=== PATIENT | female | born 1965 | race Caucasian/White ===

== ENCOUNTER → 2016-09-29 | Day surgery (SDC) | payer OTHER ==
[2016-09-21 14:06] VITALS: BMI 28.0
[~2016-09-29] VITALS: Ht 167.6 cm; Wt 79.5 kg
[~2016-09-29] MED LIST: BUSP-8 PO; CLON1TAB3 PO; DICL50TA3 PO; DPKSR/500 PO; LIDOCAINE HCL 2% 2 ML VIAL (20MG/ML) ONE; META1TAB22 PO; OLAN1TAB9 PO; OXYC-59 PO; PROPOFOL IV EMULSION 10 MG/ML 20 ML VIAL IV ONE; SODIUM CHLORIDE 0.9% 500ML 500 ML IV ONE; TRAZ100T29 PO; VENL75CA PO; [UNRECOGNIZED DRUG - CODE] TD
[2016-09-29 14:59] VITALS: Ht 167.6 cm; Wt 79.5 kg
--- NOTE | 2016-09-29 16:35 | Endo History and Physical ---
History & Physical Date of Service: Sep 29, 2016. Chief Complaint: DIARRHEA, RECTAL BLEEDING Referring Physician: NO DOCTOR AT THIS TIME History of Present Illness 51 yo CF who presents for colonoscopy secondary to diarrhea and rectal bleeding. Past Surgical History Hx Cardiac Surgery: No Hx Internal Defibrillator: No Hx Pacemaker: No Hx Abdominal Surgery: Yes (FALLOPIAN TUBES REMOVAL) Hx of Implantable Prosthesis: No Hx Post-Op Nausea and Vomiting: No Hx Cancer Surgery: No Hx Thoracic Surgery: No Hx Orthopedic: Yes (LUMBAR FUSION) Hx Urinary Tract Surgery: No Family History IBD Social History Smoking Status: Current Every Day Smoker Hx Substance Use: No Hx Alcohol Use: No Allergies Coded Allergies: Diclofenac (Unverified Allergy, Mild, DIARRHEA, 09/29/16) Ciprofloxacin (Verified Allergy, Unknown, ITCHING, 09/21/16) Metronidazole (Verified Allergy, Unknown, ITCHING, 09/21/16) NO KNOWN DRUG ALLERGIES (Verified Allergy, Unknown, ., 09/21/16) Current Medications Reported Home Medications Medications Dose Route/Sig Max Daily Dose Days Date Category Skelaxin (Metaxalone) 800 Mg Tab 800 Mg PO TID 09/21/16 Reported Percocet 10MG/325MG (Oxycodone/Acetaminophen 10MG/325MG) 1 Tab Tab 1 Tab PO QID PRN 06/02/15 Reported Effexor Xr (Venlafaxine Hcl) 75 Mg Cap 1 Cap PO HS 30 06/02/15 Reported Trazodone (Trazodone HCl) 100 Mg Tab 100 Mg PO HS 06/02/15 Reported Depakote Etended-Release (Divalproex Sodium) 500 Mg Tabcr 1,000 Mg PO HS 06/02/15 Reported Zyprexa (Olanzapine) 5 Mg Tab 5 Mg PO HS 06/02/15 Reported Klonopin (Clonazepam) 1 Mg Tab 1 Mg PO BID 06/02/15 Reported Vital Signs Weight (Kilograms): 79.55 Height (Feet): 5 Height (Inches): 6 Date Time Temp Pulse Resp B/P Pulse Ox O2 Delivery O2 Flow Rate FiO2 09/29/16 14:58 37.1 78 16 129/86 97 Room Air Physical Exam General Appearance: WD/WN, no apparent distress Respiratory/Chest: Auscultation: breath sounds normal Cardiovascular: Heart Auscultation: RRR Abdomen: Bowel Sounds: normal Inspection & Palpation: soft, non-distended, no tenderness, guarding & rebound Assessment and Plan Assessment: 51 yo CF who presents for colonoscopy secondary to diarrhea and rectal bleeding. Plan: Proceed with colonoscopy.
--- NOTE | 2016-09-29 17:14 | Discharge Instructions ---
Endoscopy Patient Instructions Date / Procedure(s) Performed Sep 29, 2016. Colonoscopy Allergy Information Coded Allergies: Diclofenac (Unverified Allergy, Mild, DIARRHEA, 09/29/16) Ciprofloxacin (Verified Allergy, Unknown, ITCHING, 09/21/16) Metronidazole (Verified Allergy, Unknown, ITCHING, 09/21/16) NO KNOWN DRUG ALLERGIES (Verified Allergy, Unknown, ., 09/21/16) Discharge Date / Findings Sep 29, 2016. Internal hemorrhoids Random colon biopsies Stool studies collected Provider Instructions Activity Restrictions - No exercising or heavy lifting for 24 hours. - Do not drink alcohol the day of the procedure. - Do not drive a car or operate machinery until the day after the procedure. - Do not make any important decisions or sign important papers in 24 hours after the procedure. Following Day: - Return to full activity which may include returning to work/school. Diet Start your diet with liquids and light foods (jello, soup, juice, toast). Then eat your usual diet if not nauseated. Treatment For Common After Affects For mild abdominal pain, bloating, or excessive gas: - Rest - Eat lightly - Lie on right side Follow-Up Information Follow-up with NO DOCTOR AT THIS TIME as scheduled Anesthesia Information What You Should Know You have had a procedure that required some medicine to reduce anxiety and discomfort. This treatment is called moderate sedation. After receiving the treatment, you may be sleepy, but you will be able to breathe on your own. The effects of the treatment may last for several hours. Follow these instructions along with Activity/Diet recommendations noted above: * Do NOT do anything where dizziness or clumsiness would be dangerous. * Rest quietly at home today, then you can be up and about tomorrow. * Have a responsible person stay with you the rest of today. * You may have had an I.V. today. If so, you may take the dressing off later today. Recommendations Call your doctor if: * Trouble breathing * Continuous vomiting for more than 24 hours * Temperature above 101 degrees * Severe abdominal pain or bloating * Pain not relieved by pain medicine ordered * There is increased drainage or redness from any incision * A large amount of rectal bleeding greater than 2-3 tablespoons. (If you had a polyp/s removed or have hemorrhoids, a small amount of blood - from the rectum is to be expected.) * You have any unanswered questions or concerns. IN THE EVENT OF A SERIOUS EMERGENCY, GO TO THE NEAREST EMERGENCY ROOM Your discharge instructions were prepared by provider Andrews Otoole. Patient Instructions Signature Page Geri Clancy Patient (or Guardian) Signature/Date: I have read and understand the instructions given to me by my caregivers. Caregiver/RN/Doctor Signature/Date: The above-named patient and/or guardian has received patient instructions on this date. + Original Patient Signature Page (only) stays with chart. Please make copy for patient.
--- NOTE | 2016-09-29 17:14 | GI REPORT ---
Procedure Date: 09/29/2016 4:26 PM Procedure: Colonoscopy Indications: Chronic diarrhea, Rectal bleeding Medicines: Monitored Anesthesia Care Complications: No immediate complications. Estimated Blood Loss: Estimated blood loss: none. Procedure: Pre-Anesthesia Assessment: - Prior to the procedure, a History and Physical was performed, and patient medications and allergies were reviewed. The patient's tolerance of previous anesthesia was also reviewed. The risks and benefits of the procedure and the sedation options and risks were discussed with the patient. All questions were answered, and informed consent was obtained. Prior Anticoagulants: The patient has taken no previous anticoagulant or antiplatelet agents. ASA Grade Assessment: II - A patient with mild systemic disease. After reviewing the risks and benefits, the patient was deemed in satisfactory condition to undergo the procedure. After I obtained informed consent, the scope was passed under direct vision. Throughout the procedure, the patient's blood pressure, pulse, and oxygen saturations were monitored continuously. The scope was introduced through the anus and advanced to the cecum, identified by appendiceal orifice and ileocecal valve. The colonoscopy was performed without difficulty. The patient tolerated the procedure well. The quality of the bowel preparation was good. The terminal ileum, ileocecal valve, appendiceal orifice, and rectum were photographed. Findings: Non-bleeding internal hemorrhoids were found during retroflexion. The hemorrhoids were small. Several random biopsies were obtained with cold forceps for histology in the entire colon. Fluid aspiration for cytology was performed in the entire colon. Impression: - Non-bleeding internal hemorrhoids. - Several random biopsies were obtained in the entire colon. - Fluid aspiration was performed. Recommendation: - Resume previous diet. - Continue present medications. - Repeat colonoscopy for surveillance based on pathology results. - Return to primary care physician as previously scheduled. Andrews Otoole DO 09/29/2016 5:13:17 PM This report has been signed electronically. Note Initiated On: 09/29/2016 4:26 PM I attest to the content of the Intraoperative Record and orders documented therein, exceptions below
[2016-09-29 17:41] VITALS: BP 127/80; PULSE 70; O2SAT 99
--- NOTE | 2016-09-29 17:48 | Anesthesiology Progress Note ---
Anesthesia Post Op Note Date & Time Sep 29, 2016 at 17:47 Vital Signs Pain Intensity: 0 Vital Signs Past 12 Hours Date Time Temp Pulse Resp B/P Pulse Ox O2 Delivery O2 Flow Rate FiO2 09/29/16 17:41 70 20 127/80 99 Room Air 09/29/16 17:27 77 20 129/89 98 Room Air 09/29/16 17:12 80 18 119/66 97 Room Air 09/29/16 14:58 37.1 78 16 129/86 97 Room Air Notes Mental Status: alert / awake / arousable, participated in evaluation Pt Amnestic to Procedure: Yes Nausea / Vomiting: adequately controlled Pain: adequately controlled Airway Patency, RR, SpO2: stable & adequate BP & HR: stable & adequate Hydration State: stable & adequate Anesthetic Complications: no major complications apparent
== END | disposition home or self-care (01) ==
LOC: C.GI 14:27
PROVIDERS: ATTEND Internal Medicine
DX: K52.9 Noninfective gastroenteritis and colitis, unspecified (principal); K62.5 Hemorrhage of anus and rectum; K64.8 Other hemorrhoids; Z83.79 Family history of other diseases of the digestive system; Z98.890 Other specified postprocedural states; Z98.1 Arthrodesis status; F17.210 Nicotine dependence, cigarettes, uncomplicated; Z88.1 Allergy status to other antibiotic agents; Z88.8 Allergy status to other drugs, medicaments and biological substances

== ENCOUNTER → 2017-04-12 | Outpatient (CLI) | payer OTHER ==
[~2017-04-12] MED LIST changes: -BUSP-8 PO; -DICL50TA3 PO; -LIDOCAINE HCL 2% 2 ML VIAL (20MG/ML) ONE; -PROPOFOL IV EMULSION 10 MG/ML 20 ML VIAL IV ONE; -SODIUM CHLORIDE 0.9% 500ML 500 ML IV ONE; -[UNRECOGNIZED DRUG - CODE] TD
== END | disposition home or self-care (01) ==
LOC: C.PAPS 09:29
PROVIDERS: ATTEND Family Medicine
DX: Z01.411 Encounter for gynecological examination (general) (routine) with abnormal findings (principal); R87.615 Unsatisfactory cytologic smear of cervix

== ENCOUNTER → 2017-04-12 | Outpatient (CLI) | payer OTHER ==
[2017-04-12 12:18] LABS: ALT/SGPT 79 U/L (12-78); BLOOD UREA NITROGEN 5 mg/dl (7-18); BUN/CREATININE RATIO 7.2 (10-20); CALCIUM 8.7 mg/dl (8.5-10.1); CARBON DIOXIDE 28 mmol/L (21-32); CHLORIDE 103 mmol/L (98-107); CHOLESTEROL 223 mg/dl (0-200); GLUCOSE,FASTING 84 mg/dl (70-99); POTASSIUM 3.7 mmol/L (3.5-5.1); SODIUM 137 mmol/L (136-145)
[2017-04-12 12:21] LABS: ALKALINE PHOSPHATASE 80 U/L (45-117); AST/SGOT 33 U/L (15-37); CHOLESTEROL/HDL RATIO 3.5; HDL CHOLESTEROL 63 mg/dl; LDL CHOLESTEROL CALCULATED 133 mg/dl; TRIGLYCERIDES 133 mg/dl (0-150); VERY LOW DENSITY LIPOPROT CALC 27 mg/dl
== END | disposition home or self-care (01) ==
LOC: C.LABPBG 10:00
PROVIDERS: ATTEND Physician Assistant
DX: Z00.00 Encounter for general adult medical examination without abnormal findings (principal)

== ENCOUNTER 2017-05-13 11:15 | Emergency (ER) | payer OTHER ==
[~2017-05-13] VITALS: Ht 167.6 cm; Wt 75.7 kg
[2017-05-13 11:37] VITALS: TEMP 37.2; Ht 167.6 cm; Wt 75.7 kg
[2017-05-13 11:45] VITALS: O2SAT 96
[2017-05-13] MEDS ORDERED: [UNRECOGNIZED DRUG - CODE] TD (11:45)
[2017-05-13] MEDS ORDERED: BUSP-8 PO (11:45)
--- NOTE | 2017-05-13 12:21 | EMERGENCY ROOM VISIT NOTE ---
History Report prepared by Shahana: Walter Hazel Under the Supervision of: Dr. Jah Davis M.D. First contact with patient: 11:59 Chief Complaint: ANXIETY Stated Complaint: anxiety History of Present Illness The patient is a 51 year old female who presents to the Emergency Room for a mental health evaluation due constant anxiety for the past 7 days. The patient states that she used to be on Klonopin, though her medications were recently changed, and she was taken off of it. She states that she now has a pain patch on her upper left arm from the pain clinic, and after this she has been anxious. Additionally, the patient has been forgetful, confused, and off balance , though she has not fallen. She states that she has this patch for her chronic pack pain. The patient states that before having this patch she was on oxycodone 4 times per day. She denies any thoughts or hurting herself, others, any hallucinations, fevers, or chest pain. She states that she is a smoker, though she denies any alcohol, drugs, heart disease, and diabetes. She states that she is using BuSpar for anxiety and buprenorphine. The patient notes that she has not been sleeping very well recently. Source of History: patient Onset: seven days ago Position: other (global) Quality: other (anxiety) Timing: constant Associated Symptoms: No fevers, No chest pain Note: Associated symptoms: confused, dizzy, off balance, and forgetful Review of Systems See HPI for pertinent positives & negatives. A total of 10 systems reviewed and were otherwise negative. Past Medical & Surgical Medical Problems: (1) Anxiety (2) Chronic back pain Old medical records were reviewed. Nurse's notes were reviewed and I agree with. Social History Smoking Status: Current Every Day Smoker Alcohol Use: occasionally Housing Status: lives with significant other Occupation Status: disabled Current/Historical Medications Scheduled Buprenorphine (Butrans), 5 MCG TD Q7D Buspirone Hcl (Buspirone Hcl), 10 MG PO TID Divalproex Sodium (Depakote Etended-Release), 500 MG PO BID Metaxalone (Skelaxin), 800 MG PO TID Olanzapine (Zyprexa), 5 MG PO HS Trazodone Hcl (Trazodone), 100 MG PO HS Venlafaxine Hcl (Effexor Xr), 1 CAP PO HS Allergies Coded Allergies: Diclofenac (Unverified Allergy, Mild, DIARRHEA, 05/13/17) Ciprofloxacin (Verified Allergy, Unknown, ITCHING, 05/13/17) Metronidazole (Verified Allergy, Unknown, ITCHING, 05/13/17) NO KNOWN DRUG ALLERGIES (Verified Allergy, Unknown, ., 05/13/17) Physical Exam Vital Signs Date Time Temp Pulse Resp B/P (MAP) Pulse Ox O2 Delivery O2 Flow Rate FiO2 05/13/17 14:17 66 18 142/91 97 Room Air 05/13/17 13:24 95 18 148/100 95 Room Air 05/13/17 12:22 66 18 118/90 95 Room Air 05/13/17 12:18 66 05/13/17 11:45 96 Room Air 05/13/17 11:37 37.2 62 12 160/93 97 Room Air Physical Exam General: Non-ill appearing, mildly anxious appearing, middle aged female in no acute distress. HEENT: Normal cephalic atraumatic. Pupils are equal round and reactive to light. Extraocular movements are intact. Oropharynx is pink with moist mucous membranes. No swelling of the mouth lips or tongue. Neck: Supple with a midline trachea. No meningeal signs or stiffness, no JVD or bruits. No Stridor. Chest: Clear to auscultation bilaterally. No wheezes or rhonchi. No increased work of breathing. Heart: regular rate and rhythm. Abdomen: Soft nontender, nondistended without rebound guarding or rigidity. Extremities: No cyanosis clubbing or edema. No calf tenderness or assymetry Spine/Back. Non tender to palpation. No CVA tenderness Skin: Good turgor without rashes. Neurologic exam: Cranial nerves two through 12 are intact. Motor and sensation are intact and symmetrical throughout. Medical Decision & Procedures Laboratory Results 05/13/17 12:25 Red Blood Count 4.41, Mean Corpuscular Volume 93.9, Mean Corpuscular Hemoglobin 32.2, Mean Corpuscular Hemoglobin Concent 34.3, Mean Platelet Volume 10.3, Neutrophils (%) (Auto) 54.9, Lymphocytes (%) (Auto) 34.7, Monocytes (%) (Auto) 7.3, Eosinophils (%) (Auto) 1.9, Basophils (%) (Auto) 0.9, Neutrophils # (Auto) 4.93, Lymphocytes # (Auto) 3.12, Monocytes # (Auto) 0.66, Eosinophils # (Auto) 0.17, Basophils # (Auto) 0.08 05/13/17 12:25 Test 05/13/17 12:25 White Blood Count 8.99 K/uL (4.8-10.8) Red Blood Count 4.41 M/uL (4.2-5.4) Hemoglobin 14.2 g/dL (12.0-16.0) Hematocrit 41.4 % (37-47) Mean Corpuscular Volume 93.9 fL (80-100) Mean Corpuscular Hemoglobin 32.2 pg (25-34) Mean Corpuscular Hemoglobin Concent 34.3 g/dl (32-36) Platelet Count 301 K/uL (130-400) Mean Platelet Volume 10.3 fL (7.4-10.4) Neutrophils (%) (Auto) 54.9 % Lymphocytes (%) (Auto) 34.7 % Monocytes (%) (Auto) 7.3 % Eosinophils (%) (Auto) 1.9 % Basophils (%) (Auto) 0.9 % Neutrophils # (Auto) 4.93 K/uL (1.4-6.5) Lymphocytes # (Auto) 3.12 K/uL (1.2-3.4) Monocytes # (Auto) 0.66 K/uL (0.11-0.59) Eosinophils # (Auto) 0.17 K/uL (0-0.5) Basophils # (Auto) 0.08 K/uL (0-0.2) RDW Standard Deviation 43.5 fL (36.4-46.3) RDW Coefficient of Variation 12.7 % (11.5-14.5) Immature Granulocyte % (Auto) 0.3 % Immature Granulocyte # (Auto) 0.03 K/uL (0.00-0.02) Anion Gap 9.0 mmol/L (3-11) Est Creatinine Clear Calc Drug Dose 85.6 ml/min Estimated GFR () 99.1 Estimated GFR (Non- 85.5 BUN/Creatinine Ratio 9.9 (10-20) Calcium Level 8.7 mg/dl (8.5-10.1) Total Bilirubin 0.2 mg/dl (0.2-1) Direct Bilirubin < 0.1 mg/dl (0-0.2) Aspartate Amino Transf (AST/SGOT) 23 U/L (15-37) Alanine Aminotransferase (ALT/SGPT) 33 U/L (12-78) Alkaline Phosphatase 72 U/L (45-117) Total Protein 7.3 gm/dl (6.4-8.2) Albumin 3.5 gm/dl (3.4-5.0) Lipase 165 U/L (73-393) Thyroid Stimulating Hormone (TSH) 0.582 uIu/ml (0.300-4.500) Valproic Acid (Depakene) Level 31 mcg/ml (50-100) Laboratory studies as stated above per my review. ECG Indication: other (anxiety) Rate (beats per minute): 57 Rhythm: sinus bradycardia Findings: other (Non-specific T-wave abnormality) Comparison ECG Date: no prior available ED Course 1159: Past medical records reviewed. The patient was evaluated in room A5, and a complete history and physical examination were performed. 1440: Upon reevaluation, the patient is resting comfortably. I discussed the results and treatment plan with her. She verbalized agreement of the treatment plan. The patient was discharged home. Medical Decision Differentials include, but are not limited to; anxiety, medication side effects , arrhythmia, electrolyte or metabolic abnormality. This patient comes in as described above. She's been having symptoms after having her medications changed about 8 days ago. They had her stop her Klonopin and started on BuSpar as well as a Bupenorphone patch. She also stopped her OxyCodone. She denies any suicidal or homicidal ideations or feeling depressed. She feels anxious. She feels a little dizzy and woozy. EKG does not show any significant cardiac findings to suggest arrhythmia or ischemia. She's had no significant electrolyte or metabolic abnormalities. She has nothing to suggest acute toxicologic process. I discussed her findings with her. I think it is related to her change in medications over the weekend if think she can take some of her Klonopin but told her take half of her old dose and that may alleviate some of her anxiety before the other medications start working. I do not think she should change her chronic meds at this point but talk to the pain clinic on Monday. She is encouraged her return ER over the weekend if worsening symptoms, any new problems or concerns. Medication Reconcilliation Current Medication List: was personally reviewed by me Blood Pressure Screening Patient's blood pressure: Elevated blood pressure Blood pressure disposition: Elevated BP felt to be situational Impression Primary Impression: Dizziness Additional Impressions: Medication side effect Anxiety Scribe Attestation The scribe's documentation has been prepared under my direction and personally reviewed by me in its entirety. I confirm that the note above accurately reflects all work, treatment, procedures, and medical decision making performed by me. Departure Information Dispostion Home / Self-Care Referrals Maegan Brooks DO (PCP) Forms HOME CARE DOCUMENTATION FORM, IMPORTANT VISIT INFORMATION Patient Instructions My [facility] Additional Instructions Rest. Drink plenty of fluids. Continue your current medications May use your Klonopin (one half the dose) over the weekend for anxiety Follow-up with your doctor/the pain clinic on Monday for recheck Return to the ER over the if: Worsening of symptoms, thoughts of hurting herself or others, any new problems or concerns Problem Qualifiers
[2017-05-13 12:54] LABS: BASO % 0.9 %; BASO ABS # 0.08 K/uL (0-0.2); COMPLETE YES; EOS % 1.9 %; HEMATOCRIT 41.4 % (37-47); IG% 0.3 %; LYMPH % 34.7 %; LYMPH ABS # 3.12 K/uL (1.2-3.4); MEAN CELL VOLUME 93.9 fL (80-100); MEAN CORPUSCULAR HEMOGLOBIN 32.2 pg (25-34); MEAN CORPUSCULAR HGB CONC 34.3 g/dl (32-36); MEAN PLATELET VOLUME 10.3 fL (7.4-10.4); MONO % 7.3 %; NEUT % 54.9 %; PLATELET COUNT 301 K/uL (130-400); RED BLOOD COUNT 4.41 M/uL (4.2-5.4); WHITE BLOOD COUNT 8.99 K/uL (4.8-10.8)
[2017-05-13 13:17] LABS: ALT/SGPT 33 U/L (12-78); BLOOD UREA NITROGEN 8 mg/dl (7-18); BUN/CREATININE RATIO 9.9 (10-20); CALCIUM 8.7 mg/dl (8.5-10.1); CARBON DIOXIDE 27 mmol/L (21-32); CHLORIDE 106 mmol/L (98-107); CREATININE 0.79 mg/dl (0.60-1.20); GLUCOSE 91 mg/dl (70-99); POTASSIUM 3.3 mmol/L (3.5-5.1); SODIUM 142 mmol/L (136-145)
[2017-05-13 13:28] LABS: ALKALINE PHOSPHATASE 72 U/L (45-117); AST/SGOT 23 U/L (15-37); THYROID STIMULATING HORMONE 0.582 uIu/ml (0.300-4.500)
[2017-05-13 14:17] VITALS: BP 142/91; PULSE 66; O2SAT 97
== END 2017-05-13 14:55 | disposition home or self-care (01) ==
LOC: EDBD 11:15 → C.EDA 11:16
DX: R42 Dizziness and giddiness (principal); T42.4X5A Adverse effect of benzodiazepines, initial encounter; F41.9 Anxiety disorder, unspecified; M54.9 Dorsalgia, unspecified; G89.29 Other chronic pain; F17.210 Nicotine dependence, cigarettes, uncomplicated; Z79.899 Other long term (current) drug therapy

== ENCOUNTER 2021-11-12 14:31 | Inpatient (IN) ==
[2021-11-12] MEDS ORDERED: MULTI-VITAMIN INFUSION 10 ML, THIAMINE HCL 100 MG, FOLIC ACID 1 MG in SODIUM CHLORIDE 0... IV ONE (14:55)
[2021-11-12] MEDS ORDERED: SODIUM CHLORIDE 0.9% 1000ML 500 ML IV ONE ×2 (14:55→18:20)
--- NOTE | 2021-11-12 15:04 | Emergency Department Note ---
Impression & Plan Altered mental status, Acute hyponatremia, Acute urinary retention, Hypomagnesemia, Hypokalemia, Leukocytosis ED Provider Note NAME: NIURKA MO AGE: 56 SEX: F : 1965 ARRIVES VIA: Ambulance INFORMANT: [ems, nursing] ED PROVIDER(S): [Rubin Argueta MD] CHIEF COMPLAINT: Alcohol intoxication HISTORY OF PRESENT ILLNESS: The patient is a 56-year-old female who was brought by EMS for presumed alcohol intoxication. Police were on scene because the patient had attempted to break into someone else's apartment in her same apartment building. When the police got into her home, her refrigerator was open and there were cans of beer everywhere. The patient is currently not responding to questioning. She does move all extremities. She is somnolent. No obvious trauma. Given her mental state, no further history obtainable. Of note, patient has a long history of alcoholism. REVIEW OF SYSTEMS: Unobtainable given the mental state. PMHx/PSHx: See Below SOCIAL HISTORY: See Below. PHYSICAL EXAM: GENERAL: Patient is in no acute distress. HEENT: No acute trauma, normocephalic atraumatic, mucous membranes moist, no nasal congestion, no scleral icterus. Pupils are somewhat large but equal and reactive to light. Gaze does seem to wander a bit. No scalp hematomas noted. NECK: No stridor, no adenopathy, no cervical spine step-off or obvious tenderness, trachea is midline. No evidence for meningismus. LUNGS: Clear to auscultation bilaterally, no wheeze, no rhonchi, breath sounds equal. HEART: Without murmurs gallops or rubs, regular rate and rhythm. ABDOMEN: Soft, nontender, bowel sounds positive, no hernias, no peritonitis. EXTREMITIES: No cyanosis or edema, full range of motion of all the joints without pain or difficulty, no signs for acute trauma. NEUROLOGIC: Somnolent, sleeping, moving all extremities. Currently nonverbal. Withdraws to pain. SKIN: No rash, no jaundice, no diaphoresis. DIFFERENTIAL DIAGNOSIS: Head trauma, drug or alcohol abuse, dehydration, electrolyte imbalance, anemia, renal or liver failure, infection, pneumonia, meningitis, among others. EMERGENCY DEPARTMENT COURSE/PROCEDURES: ECG: Indication was altered mental state. ECG shows a normal sinus rhythm with a rate of 89. There is baseline artifact. There is no ST elevation, no PVCs. The QTc is 496. Continuous Cardiac Monitoring: An order was placed for continuous cardiac monitoring. The monitor shows a rate of 87 with normal sinus rhythm. Lumbar puncture: This procedure was performed by me. Patient was placed on her left side on the stretcher. Lumbar landmarks were identified. Betadine was used for prep. Sterile drapes were applied. Using sterile technique, lidocaine was used to anesthetize the lumbar area. Using sterile technique, attempts were made to obtain CSF fluid. Unfortunately, I was unable to access the spinal canal. Bone was struck with every attempt. Of note, the patient has had lumbar surgery. Patient tolerated the procedure well. Patient was eventually sent for lumbar puncture under fluoroscopy. Critical Care Note: I have personally spent 69 minutes of critical care time in the direct management of this patient. This includes bedside care, interpretation of diagnostic studies, and testing, discussion with consultants, patient, and family members, and other required patient management activities. This 69 minutes is in excess of all separately billable procedures. MEDICAL DECISION MAKING: There is a significant leukocytosis at 21,000, this is consistent with infection or potentially the stress of her situation. Hemoglobin was normal. Platelet count very mildly elevated. Renal panel testing showed a markedly low sodium and mildly low potassium. The magnesium was low. There was no obvious acidosis. There were a few subtle liver enzyme elevations, likely from her history of alcohol abuse. Ammonia level was not elevated. Sed rate was normal. C-reactive protein was slightly elevated. Lactic acid level was not elevated making severe sepsis less likely. Procalcitonin level was not elevated. The patient appeared to be in a euthyroid state. Urinalysis did not show infection. COVID test was negative. Alcohol level was slightly elevated at 32. Urine tox showed marijuana and benzos. Aspirin and Tylenol levels were undetectable. Chest film did not show pneumonia, congestion from some atelectasis was seen. Brain CT showed no acute bleed or mass-effect. Chest CT did not show pneumonia or PE. Abdominal and pelvis CT showed a distended bladder, there was no bowel obstruction, no acute surgical process by CT imaging. The patient had presented altered. Based on her above history, she was initia lly thought to be intoxicated with alcohol. This turned out not to be the case by work-up. With the altered mental status, with her leukocytosis, a lumbar puncture was done to rule out meningitis. Attempts were made here in the ED but were unsuccessful. The patient eventually underwent LP using fluoroscopy. The CSF fluid did not show evidence for meningitis. Bio fire is still pending. The patient was aggressively managed given her presentation. She had a Torres catheter placed and around 2 to 3 L of urine drained while she was in the ED. She received IV ceftriaxone and IV vancomycin as empiric antibiotic coverage. She was given a liter of IV saline. She was given IV saline mixed with multivitamins, thiamine and folate. She received hypertonic saline IV. She received IV Haldol and IV Ativan to help with relaxation and agitation. She was ordered for IV Tylenol when she developed a slight fever. At this point, the cause for her presentation is unclear. She does require a ho spital stay. Further work-up and care is necessary. I did speak with case management, the on-call hospitalist has been consulted. I did attempt to talk with the patient about her findings however, she remains somnolent/confused but protecting her airway well. Past Med/Surg History Medical History Acid reflux Alcoholism Anxiety Arthritis Benign essential hypertension Cervical disc disease Depression Dermatitis Dyslipidemia Fatty liver Lumbar disc disease Lumbar spinal stenosis Microscopic colitis Mood disorder Pulmonary nodule Pulmonary nodules Vitamin D deficiency Surgical History H/O sinus surgery H/O tubal ligation History of back surgery History of tonsillectomy Hx of unilateral salpingectomy d/t ectopic Family History Father Colitis Hypertension Mother Hypertension Grandfather (Paternal) Myocardial infarction Coronary heart disease Sister Hypertension Denies family history of Ovarian cancer Prostate cancer Breast cancer Colorectal cancer Social History Smoking Status: Unknown if ever smoked Tobacco Type: Cigarettes packs per day: 1; Cigarettes Per Day: 20; Second Hand Exposure: No; Hx Alcohol Use: Yes Alcohol Intake Frequency: 4 or More x per/Week Hx Substance Use: No Preferred Language: Kazakh Communication Ability: Effective Visual Impairment: No Limitations Hearing Ability: Normal Chief Environmental Commitment Officer Required: No Beliefs That Will Affect Care: None marital status: Single Current Living Situation: Alone Current Living Situation Comment: with help available current occupational status: disabled Feels Safe at Home: Yes Childhood Exposure to Second-Hand Smoke: No caffeine: Yes during the past year weight has: decreased > 10 lbs Dental Care, Regularly: Yes Physical Activity Frequency: 3-4 Times per Week Physical Activity Frequency Comment: due to physical condition Seatbelt Use: always Sunscreen Use: No Allergies Allergies Allergy/AdvReac Type Severity Reaction Status Date / Time capsaicin Allergy Mild DIARRHEA Unverified 10/08/21 14:47 diclofenac Allergy Mild DIARRHEA Unverified 10/08/21 14:47 ciprofloxacin Allergy Unknown ITCHING Verified 10/08/21 14:47 metronidazole Allergy Unknown ITCHING Verified 10/08/21 14:47 Gabapentin CAPS AdvReac Intermediate edema Uncoded 10/08/21 14:47 Home Meds Home Medications Medication Instructions Recorded Confirmed temazepam 30 mg capsule 30 mg PO HS cap 03/07/19 10/08/21 venlafaxine 75 mg capsule,extended 75 mg PO DAILY cap 03/07/19 10/08/21 release 24 hr trazodone 100 mg tablet 100 mg PO HS tab 04/07/20 10/08/21 alprazolam 1 mg tablet See Rx Instructions .ROUTE 11/12/20 10/08/21 .COMPLEX PRN tab ziprasidone HCl 40 mg capsule 40 mg PO DAILY cap 11/12/20 10/08/21 light mineral oil 1 %-mineral oil drp OPHTHALMIC (EYE) PRN 05/24/21 10/08/21 4.5 % eye drops (Soothe XP) Previous Rx's Medication Instructions Recorded triamcinolone acetonide 0.1 % 1 appln TOP BID #80 gm 06/04/19 topical cream cholecalciferol (vitamin D3) 50 2,000 unit PO DAILY #90 cap 04/22/20 mcg (2,000 unit) capsule amlodipine 5 mg tablet 5 mg PO DAILY #90 tab 06/07/21 docusate sodium 100 mg capsule 100 mg PO TID #180 cap 07/27/21 (Colace) atorvastatin 20 mg tablet 20 mg PO DAILY #90 tab 08/13/21 losartan 50 mg tablet 50 mg PO BID #180 tab 08/18/21 colchicine 0.6 mg capsule See Rx Instructions .ROUTE 10/08/21 .COMPLEX #3 cap diclofenac sodium 75 mg 75 mg PO BID #180 tab 10/13/21 tablet,delayed release fluocinonide 0.05 % topical cream 1 applic TOP BID #60 gm 10/13/21 fluticasone propionate 50 2 spray INTNAS DAILY #15.8 ml 10/13/21 mcg/actuation nasal spray,suspension (Flonase Allergy Relief) loratadine 10 mg tablet (Claritin) 10 mg PO DAILY #90 tab 10/13/21 pantoprazole 40 mg tablet,delayed 40 mg PO DAILY #90 tab 10/13/21 release potassium chloride 20 mEq See Rx Instructions .ROUTE 10/13/21 tablet,extended release(part/cryst) .COMPLEX #270 tab Results & Data (ED) Vital Signs Vital Signs - 24 hr 11/12/21 14:43 11/12/21 14:44 11/12/21 14:54 Temperature 36.6 C Temperature Source Axillary Pulse Rate 87 87 86 Pulse Rate [Apical] Pulse Rate from SpO2 Sensor Respiratory Rate 18 16 15 Respiratory Effort / Characteristics Non-Labored Spontaneous Respiratory Depth Normal Respiratory Pattern Regular Blood Pressure 140/83 Blood Pressure [Right Arm] Blood Pressure Mean 102 Blood Pressure Mean [Right Arm] Blood Pressure Position Lying Blood Pressure Position [Right Arm] Pulse Oximetry 96 Oxygen Delivery Method Room Air Sepsis New/Unexplained Change in Mental Status N/A Sepsis Action Taken by Nursing No Action Required 11/12/21 14:56 11/12/21 15:00 11/12/21 15:10 Temperature Temperature Source Pulse Rate 85 Pulse Rate [Apical] Pulse Rate from SpO2 Sensor 88 86 Respiratory Rate Respiratory Effort / Characteristics Respiratory Depth Respiratory Pattern Blood Pressure Blood Pressure [Right Arm] Blood Pressure Mean Blood Pressure Mean [Right Arm] Blood Pressure Position Blood Pressure Position [Right Arm] Pulse Oximetry 98 95 97 Oxygen Delivery Method Room Air Sepsis New/Unexplained Change in Mental Status Sepsis Action Taken by Nursing 11/12/21 15:20 11/12/21 15:30 11/12/21 15:40 Temperature Temperature Source Pulse Rate 84 80 Pulse Rate [Apical] Pulse Rate from SpO2 Sensor 91 H 84 81 Respiratory Rate 17 18 Respiratory Effort / Characteristics Respiratory Depth Respiratory Pattern Blood Pressure Blood Pressure [Right Arm] Blood Pressure Mean Blood Pressure Mean [Right Arm] Blood Pressure Position Blood Pressure Position [Right Arm] Pulse Oximetry 96 97 99 Oxygen Delivery Method Sepsis New/Unexplained Change in Mental Status Sepsis Action Taken by Nursing 11/12/21 16:18 11/12/21 16:20 11/12/21 16:30 Temperature Temperature Source Pulse Rate 89 Pulse Rate [Apical] 96 H Pulse Rate from SpO2 Sensor 88 Respiratory Rate 16 15 Respiratory Effort / Characteristics Non-Labored Spontaneous Respiratory Depth Normal Respiratory Pattern Regular Blood Pressure Blood Pressure [Right Arm] 141/79 H Blood Pressure Mean Blood Pressure Mean [Right Arm] 99 Blood Pressure Position Blood Pressure Position [Right Arm] Sitting Pulse Oximetry 95 96 97 Oxygen Delivery Method Room Air Room Air Sepsis New/Unexplained Change in Mental Status Sepsis Action Taken by Nursing 11/12/21 16:40 11/12/21 16:50 11/12/21 17:00 Temperature Temperature Source Pulse Rate 89 88 94 H Pulse Rate [Apical] Pulse Rate from SpO2 Sensor 89 88 93 H Respiratory Rate 20 22 21 Respiratory Effort / Characteristics Respiratory Depth Respiratory Pattern Blood Pressure Blood Pressure [Right Arm] Blood Pressure Mean Blood Pressure Mean [Right Arm] Blood Pressure Position Blood Pressure Position [Right Arm] Pulse Oximetry 97 98 97 Oxygen Delivery Method Sepsis New/Unexplained Change in Mental Status Sepsis Action Taken by Nursing 11/12/21 17:10 11/12/21 17:20 11/12/21 17:30 Temperature Temperature Source Pulse Rate 90 95 H Pulse Rate [Apical] Pulse Rate from SpO2 Sensor 95 H 92 H 96 H Respiratory Rate 23 22 22 Respiratory Effort / Characteristics Respiratory Depth Respiratory Pattern Blood Pressure 161/119 H 141/79 H Blood Pressure [Right Arm] Blood Pressure Mean 133 99 Blood Pressure Mean [Right Arm] Blood Pressure Position Blood Pressure Position [Right Arm] Pulse Oximetry 95 94 97 Oxygen Delivery Method Room Air Sepsis New/Unexplained Change in Mental Status Sepsis Action Taken by Jail Medications Current Medication List: was personally reviewed by me Laboratory Data Attestation: I reviewed the patient's lab results. Result diagrams: 11/12/21 15:19 11/12/21 18:43 Lab Results 11/12/21 11/12/21 11/12/21 Range/Units 14:20 15:19 15:19 WBC (4.8-10.8) K/uL RBC (4.2-5.4) M/uL Hgb (12.0-16.0) g/dL Hct (37-47) % MCV (80-100) fL MCH (25-34) pg MCHC (32-36) g/dL RDW Std Deviation (36.4-46.3) fL RDW Coeff of Roger (11.5-14.5) % Plt Count (130-400) K/uL MPV (7.4-10.4) fL Immature Gran % (Auto) % Neut % (Auto) % Lymph % (Auto) % [place] % (Auto) % Eos % (Auto) % Baso % (Auto) % Neut # (Auto) (1.4-6.5) K/uL Lymph # (Auto) (1.2-3.4) K/uL [place] # (Auto) (0.11-0.59) K/uL Eos # (Auto) (0-0.5) K/uL Baso # (Auto) (0-0.2) K/uL Immature Gran # (Auto) (0.00-0.02) K/uL ESR (0-30) mm/hr Sodium 115 L* (136-145) mmol/L Potassium 3.0 L (3.5-5.1) mmol/L Chloride 80 L (98-107) mmol/L Carbon Dioxide 22 (21-32) mmol/L Anion Gap 13 H (3-11) BUN 4 L (6-23) mg/dl Creatinine 0.52 L (0.6-1.2) mg/dl Est Cr Clr Drug Dosing Not Reportable Est GFR ( Amer) 122.1 ml/min Est GFR (Non-Af Amer) 105.3 ml/min BUN/Creatinine Ratio 7.7 L (10-20) Glucose 92 (70-99(Fasting)) mg/dl Lactate (0.4-2.0) mmol/L Calcium 8.4 L (8.5-10.1) mg/dl Magnesium 1.5 L (1.7-2.4) mg/dl Total Bilirubin 0.7 (0.2-1.0) mg/dl AST 40 H (13-39) U/L ALT 30 (7-52) U/L Alkaline Phosphatase 120 H (34-104) U/L Ammonia (18-72) umol/L Total Creatine Kinase 753 H (26-192) U/L Total Protein 7.4 (6.0-8.3) gm/dl Albumin 4.5 (3.4-5.0) gm/dl Globulin 2.9 (2.5-4.0) gm/dl Albumin/Globulin Ratio 1.6 (0.9-2) Procalcitonin (0-0.5) ng/ml TSH (0.300-4.500) uIu/ml Urine Color Urine Appearance (Clear) Urine pH (4.5-7.5) Ur Specific [place] (1.000-1.030) Urine Protein (Negative) Urine Glucose (UA) (Negative) Urine Ketones (Negative) Urine Blood (Negative) Urine Nitrite (Negative) Urine Bilirubin (Negative) Urine Urobilinogen (Negative) Ur Leukocyte Esterase (Negative) Salicylates < 3.0 L (3.0-30) mg/dl Urine Opiates Screen (Neg) Ur Methadone, Qual (Neg) Acetaminophen < 3 L (10-30) ug/ml Urine Barbiturates (Neg) Ur Phencyclidine (PCP) (Neg) U Amphetamin/Meth Scrn (Neg) MDMA (Ecstasy) Screen (Neg) U Benzodiazepines Scrn (Neg) Ur Cocaine Metabolite (Neg) U Marijuana (THC) Screen (Neg) Ethyl Alcohol mg/dL (<10.0) mg/dl SARS-CoV-2 RNA (KAHLIL) Cancelled SARS-CoV-2, RNA, NAAT (NEGATIVE) 11/12/21 11/12/21 11/12/21 Range/Units 15:19 15:19 15:19 WBC 21.92 H (4.8-10.8) K/uL RBC 4.66 (4.2-5.4) M/uL Hgb 14.3 (12.0-16.0) g/dL Hct 39.0 (37-47) % MCV 83.7 (80-100) fL MCH 30.7 (25-34) pg MCHC 36.7 H (32-36) g/dL RDW Std Deviation 37.3 (36.4-46.3) fL RDW Coeff of Roger 12.3 (11.5-14.5) % Plt Count 449 H (130-400) K/uL MPV 8.8 (7.4-10.4) fL Immature Gran % (Auto) 0.7 % Neut % (Auto) 83.9 % Lymph % (Auto) 8.2 % [place] % (Auto) 7.1 % Eos % (Auto) 0.0 % Baso % (Auto) 0.1 % Neut # (Auto) 18.38 H (1.4-6.5) K/uL Lymph # (Auto) 1.80 (1.2-3.4) K/uL [place] # (Auto) 1.56 H (0.11-0.59) K/uL Eos # (Auto) 0.01 (0-0.5) K/uL Baso # (Auto) 0.02 (0-0.2) K/uL Immature Gran # (Auto) 0.15 H (0.00-0.02) K/uL ESR (0-30) mm/hr Sodium (136-145) mmol/L Potassium (3.5-5.1) mmol/L Chloride (98-107) mmol/L Carbon Dioxide (21-32) mmol/L Anion Gap (3-11) BUN (6-23) mg/dl Creatinine (0.6-1.2) mg/dl Est Cr Clr Drug Dosing Est GFR ( Amer) ml/min Est GFR (Non-Af Amer) ml/min BUN/Creatinine Ratio (10-20) Glucose (70-99(Fasting)) mg/dl Lactate (0.4-2.0) mmol/L Calcium (8.5-10.1) mg/dl Magnesium (1.7-2.4) mg/dl Total Bilirubin (0.2-1.0) mg/dl AST (13-39) U/L ALT (7-52) U/L Alkaline Phosphatase (34-104) U/L Ammonia (18-72) umol/L Total Creatine Kinase (26-192) U/L Total Protein (6.0-8.3) gm/dl Albumin (3.4-5.0) gm/dl Globulin (2.5-4.0) gm/dl Albumin/Globulin Ratio (0.9-2) Procalcitonin (0-0.5) ng/ml TSH 0.638 (0.300-4.500) uIu/ml Urine Color Urine Appearance (Clear) Urine pH (4.5-7.5) Ur Specific [place] (1.000-1.030) Urine Protein (Negative) Urine Glucose (UA) (Negative) Urine Ketones (Negative) Urine Blood (Negative) Urine Nitrite (Negative) Urine Bilirubin (Negative) Urine Urobilinogen (Negative) Ur Leukocyte Esterase (Negative) Salicylates (3.0-30) mg/dl Urine Opiates Screen (Neg) Ur Methadone, Qual (Neg) Acetaminophen (10-30) ug/ml Urine Barbiturates (Neg) Ur Phencyclidine (PCP) (Neg) U Amphetamin/Meth Scrn (Neg) MDMA (Ecstasy) Screen (Neg) U Benzodiazepines Scrn (Neg) Ur Cocaine Metabolite (Neg) U Marijuana (THC) Screen (Neg) Ethyl Alcohol mg/dL 32.1 H (<10.0) mg/dl SARS-CoV-2 RNA (KAHLIL) SARS-CoV-2, RNA, NAAT (NEGATIVE) 11/12/21 11/12/21 11/12/21 Range/Units 15:19 15:19 16:30 WBC (4.8-10.8) K/uL RBC (4.2-5.4) M/uL Hgb (12.0-16.0) g/dL Hct (37-47) % MCV (80-100) fL MCH (25-34) pg MCHC (32-36) g/dL RDW Std Deviation (36.4-46.3) fL RDW Coeff of Roger (11.5-14.5) % Plt Count (130-400) K/uL MPV (7.4-10.4) fL Immature Gran % (Auto) % Neut % (Auto) % Lymph % (Auto) % [place] % (Auto) % Eos % (Auto) % Baso % (Auto) % Neut # (Auto) (1.4-6.5) K/uL Lymph # (Auto) (1.2-3.4) K/uL [place] # (Auto) (0.11-0.59) K/uL Eos # (Auto) (0-0.5) K/uL Baso # (Auto) (0-0.2) K/uL Immature Gran # (Auto) (0.00-0.02) K/uL ESR 24 (0-30) mm/hr Sodium (136-145) mmol/L Potassium (3.5-5.1) mmol/L Chloride (98-107) mmol/L Carbon Dioxide (21-32) mmol/L Anion Gap (3-11) BUN (6-23) mg/dl Creatinine (0.6-1.2) mg/dl Est Cr Clr Drug Dosing Est GFR ( Amer) ml/min Est GFR (Non-Af Amer) ml/min BUN/Creatinine Ratio (10-20) Glucose (70-99(Fasting)) mg/dl Lactate (0.4-2.0) mmol/L Calcium (8.5-10.1) mg/dl Magnesium (1.7-2.4) mg/dl Total Bilirubin (0.2-1.0) mg/dl AST (13-39) U/L ALT (7-52) U/L Alkaline Phosphatase (34-104) U/L Ammonia (18-72) umol/L Total Creatine Kinase (26-192) U/L Total Protein (6.0-8.3) gm/dl Albumin (3.4-5.0) gm/dl Globulin (2.5-4.0) gm/dl Albumin/Globulin Ratio (0.9-2) Procalcitonin < 0.05 (0-0.5) ng/ml TSH (0.300-4.500) uIu/ml Urine Color Yellow Urine Appearance Clear (Clear) Urine pH 6.0 (4.5-7.5) Ur Specific [place] 1.004 (1.000-1.030) Urine Protein Negative (Negative) Urine Glucose (UA) Negative (Negative) Urine Ketones Trace H (Negative) Urine Blood Negative (Negative) Urine Nitrite Negative (Negative) Urine Bilirubin Negative (Negative) Urine Urobilinogen Negative (Negative) Ur Leukocyte Esterase Negative (Negative) Salicylates (3.0-30) mg/dl Urine Opiates Screen (Neg) Ur Methadone, Qual (Neg) Acetaminophen (10-30) ug/ml Urine Barbiturates (Neg) Ur Phencyclidine (PCP) (Neg) U Amphetamin/Meth Scrn (Neg) MDMA (Ecstasy) Screen (Neg) U Benzodiazepines Scrn (Neg) Ur Cocaine Metabolite (Neg) U Marijuana (THC) Screen (Neg) Ethyl Alcohol mg/dL (<10.0) mg/dl SARS-CoV-2 RNA (KAHLIL) SARS-CoV-2, RNA, NAAT (NEGATIVE) 05/20/22 05/20/22 05/20/22 Range/Units 16:30 16:30 16:37 WBC (4.8-10.8) K/uL RBC (4.2-5.4) M/uL Hgb (12.0-16.0) g/dL Hct (37-47) % MCV (80-100) fL MCH (25-34) pg MCHC (32-36) g/dL RDW Std Deviation (36.4-46.3) fL RDW Coeff of Roger (11.5-14.5) % Plt Count (130-400) K/uL MPV (7.4-10.4) fL Immature Gran % (Auto) % Neut % (Auto) % Lymph % (Auto) % [place] % (Auto) % Eos % (Auto) % Baso % (Auto) % Neut # (Auto) (1.4-6.5) K/uL Lymph # (Auto) (1.2-3.4) K/uL [place] # (Auto) (0.11-0.59) K/uL Eos # (Auto) (0-0.5) K/uL Baso # (Auto) (0-0.2) K/uL Immature Gran # (Auto) (0.00-0.02) K/uL ESR (0-30) mm/hr Sodium (136-145) mmol/L Potassium (3.5-5.1) mmol/L Chloride (98-107) mmol/L Carbon Dioxide (21-32) mmol/L Anion Gap (3-11) BUN (6-23) mg/dl Creatinine (0.6-1.2) mg/dl Est Cr Clr Drug Dosing Est GFR ( Amer) ml/min Est GFR (Non-Af Amer) ml/min BUN/Creatinine Ratio (10-20) Glucose (70-99(Fasting)) mg/dl Lactate 1.6 (0.4-2.0) mmol/L Calcium (8.5-10.1) mg/dl Magnesium (1.7-2.4) mg/dl Total Bilirubin (0.2-1.0) mg/dl AST (13-39) U/L ALT (7-52) U/L Alkaline Phosphatase (34-104) U/L Ammonia (18-72) umol/L Total Creatine Kinase (26-192) U/L Total Protein (6.0-8.3) gm/dl Albumin (3.4-5.0) gm/dl Globulin (2.5-4.0) gm/dl Albumin/Globulin Ratio (0.9-2) Procalcitonin (0-0.5) ng/ml TSH (0.300-4.500) uIu/ml Urine Color Urine Appearance (Clear) Urine pH (4.5-7.5) Ur Specific [place] (1.000-1.030) Urine Protein (Negative) Urine Glucose (UA) (Negative) Urine Ketones (Negative) Urine Blood (Negative) Urine Nitrite (Negative) Urine Bilirubin (Negative) Urine Urobilinogen (Negative) Ur Leukocyte Esterase (Negative) Salicylates (3.0-30) mg/dl Urine Opiates Screen Neg (Neg) Ur Methadone, Qual Neg (Neg) Acetaminophen (10-30) ug/ml Urine Barbiturates Neg (Neg) Ur Phencyclidine (PCP) Neg (Neg) U Amphetamin/Meth Scrn Neg (Neg) MDMA (Ecstasy) Screen Neg (Neg) U Benzodiazepines Scrn Pos H (Neg) Ur Cocaine Metabolite Neg (Neg) U Marijuana (THC) Screen Pos H (Neg) Ethyl Alcohol mg/dL (<10.0) mg/dl SARS-CoV-2 RNA (KAHLIL) SARS-CoV-2, RNA, NAAT NEGATIVE (NEGATIVE) 11/12/21 Range/Units 16:37 WBC (4.8-10.8) K/uL RBC (4.2-5.4) M/uL Hgb (12.0-16.0) g/dL Hct (37-47) % MCV (80-100) fL MCH (25-34) pg MCHC (32-36) g/dL RDW Std Deviation (36.4-46.3) fL RDW Coeff of Roger (11.5-14.5) % Plt Count (130-400) K/uL MPV (7.4-10.4) fL Immature Gran % (Auto) % Neut % (Auto) % Lymph % (Auto) % [place] % (Auto) % Eos % (Auto) % Baso % (Auto) % Neut # (Auto) (1.4-6.5) K/uL Lymph # (Auto) (1.2-3.4) K/uL [place] # (Auto) (0.11-0.59) K/uL Eos # (Auto) (0-0.5) K/uL Baso # (Auto) (0-0.2) K/uL Immature Gran # (Auto) (0.00-0.02) K/uL ESR (0-30) mm/hr Sodium (136-145) mmol/L Potassium (3.5-5.1) mmol/L Chloride (98-107) mmol/L Carbon Dioxide (21-32) mmol/L Anion Gap (3-11) BUN (6-23) mg/dl Creatinine (0.6-1.2) mg/dl Est Cr Clr Drug Dosing Est GFR ( Amer) ml/min Est GFR (Non-Af Amer) ml/min BUN/Creatinine Ratio (10-20) Glucose (70-99(Fasting)) mg/dl Lactate (0.4-2.0) mmol/L Calcium (8.5-10.1) mg/dl Magnesium (1.7-2.4) mg/dl Total Bilirubin (0.2-1.0) mg/dl AST (13-39) U/L ALT (7-52) U/L Alkaline Phosphatase (34-104) U/L Ammonia 32.0 (18-72) umol/L Total Creatine Kinase (26-192) U/L Total Protein (6.0-8.3) gm/dl Albumin (3.4-5.0) gm/dl Globulin (2.5-4.0) gm/dl Albumin/Globulin Ratio (0.9-2) Procalcitonin (0-0.5) ng/ml TSH (0.300-4.500) uIu/ml Urine Color Urine Appearance (Clear) Urine pH (4.5-7.5) Ur Specific [place] (1.000-1.030) Urine Protein (Negative) Urine Glucose (UA) (Negative) Urine Ketones (Negative) Urine Blood (Negative) Urine Nitrite (Negative) Urine Bilirubin (Negative) Urine Urobilinogen (Negative) Ur Leukocyte Esterase (Negative) Salicylates (3.0-30) mg/dl Urine Opiates Screen (Neg) Ur Methadone, Qual (Neg) Acetaminophen (10-30) ug/ml Urine Barbiturates (Neg) Ur Phencyclidine (PCP) (Neg) U Amphetamin/Meth Scrn (Neg) MDMA (Ecstasy) Screen (Neg) U Benzodiazepines Scrn (Neg) Ur Cocaine Metabolite (Neg) U Marijuana (THC) Screen (Neg) Ethyl Alcohol mg/dL (<10.0) mg/dl SARS-CoV-2 RNA (KAHLIL) SARS-CoV-2, RNA, NAAT (NEGATIVE) Administered Medications Discontinued Medications Haloperidol Lactate (Haloperidol Lactate 5 Mg/Ml 1 Ml Vial) 5 mg IV NOW STA Stop: 11/12/21 16:08 Last Admin: 11/12/21 16:23 Dose: 5 mg Documented by: [id number] Sodium Chloride (Nss 1000ml) 500 mls @ 999 mls/hr IV .Q31M ONE Stop: 11/12/21 15:25 Last Infusion: 11/12/21 17:03 Dose: 0 mls/hr Documented by: [id number] Admin: 11/12/21 15:34 Dose: 999 mls/hr Documented by: [id number] Multivitamins 10 ml/ Thiamine HCl 100 mg/ Folic Acid 1 mg/Sodium Chloride 1,011.2 mls @ 1,011.2 mls/hr IV .Q1H ONE Stop: 11/12/21 15:54 Last Infusion: 11/12/21 17:33 Dose: 0 mls/hr Documented by: [id number] Admin: 11/12/21 16:19 Dose: 1,011.2 mls/hr Documented by: [id number] Ceftriaxone Sodium (Rocephin) 2,000 mg in 70 mls @ 140 mls/hr IV NOW STA Stop: 11/12/21 16:34 Last Infusion: 11/12/21 18:10 Dose: 0 mls/hr Documented by: [id number] Admin: 11/12/21 17:30 Dose: 140 mls/hr Documented by: [id number] Sodium Chloride (Hypertonic Saline 3%) 50 mls @ 300 mls/hr IV .Q10M STA Stop: 11/12/21 16:56 Last Infusion: 11/12/21 17:03 Dose: 0 mls/hr Documented by: [id number] Cosigned by: [id number] Admin: 11/12/21 16:54 Dose: 300 mls/hr Documented by: [id number] Cosigned by: [id number] Vancomycin HCl 2,250 mg/ (Sodium Chloride) 545 mls @ 200 mls/hr IV NOW ONE Stop: 11/12/21 20:29 Last Admin: 11/12/21 18:39 Dose: 200 mls/hr Documented by: [id number] Sodium Chloride (Nss 1000ml) 500 mls @ 999 mls/hr IV .Q31M ONE Stop: 11/12/21 18:50 Last Infusion: 11/12/21 20:00 Dose: 0 mls/hr Documented by: [id number] Admin: 11/12/21 18:40 Dose: 999 mls/hr Documented by: [id number] Ioversol (Optiray 320 125ml) 120 ml IV ONCE ONE Stop: 11/12/21 18:19 Last Admin: 11/12/21 18:18 Dose: 120 ml Documented by: [id number] Lidocaine HCl (Lidocaine 1% Local 20 Ml Vial) Confirm Administered Dose 20 ml .ROUTE .STZadby-MED ONE Stop: 11/12/21 16:52 Last Admin: 11/12/21 17:31 Dose: 20 ml Documented by: [id number] Lorazepam (Lorazepam 2 Mg/1 Ml Vial) 0.5 mg IV NOW STA Stop: 11/12/21 16:08 Last Admin: 11/12/21 16:23 Dose: 0.5 mg Documented by: [id number] Imaging Data Radiologist's Impression: Head CT 11/12/21 14:55 CT head/brain wo con CLINICAL HISTORY: 56 years-old Female with alcohol, confused, poss trauma. Acutely altered mental status TECHNIQUE: Multiple axial CT images of the head were obtained without contrast. A dose lowering technique was utilized adhering to the principles of ALARA. CT DOSE: 1547.15 mGy.cm COMPARISON: Head CT 02/05/2020 FINDINGS: No acute intracranial hemorrhage, midline shift, intracranial mass, hydrocephalus, territorial ischemia or abnormal extra-axial collection. Motion degraded exam. The study was then repeated which was also motion degraded. The calvarium is intact. Mastoid air cells are clear. Mild mucosal thickening of the nasal turbinates. IMPRESSION: Motion degraded exam. No acute intracranial abnormality identified. ACT 112: Negative or not required by law. The above report was generated using voice recognition software. It may contain grammatical, syntax or spelling errors. Electronically signed by: Maxime Betancourt M.D. 11/12/2021 4:00 PM Chest X-Ray 11/12/21 14:56 XR chest 1V portable CLINICAL HISTORY: weakness. Evaluate cardiopulmonary status COMPARISON STUDY: 02/05/2020 TECHNIQUE: 1 view of the chest FINDINGS: Single frontal view of the chest demonstrates the cardiomediastinal silhouette to be within normal limits. There is a decreased inspiratory effort with elevation of the hemidiaphragms and crowding of the bronchovascular markings at the lung bases and centrally. Additionally, there is evidence for mild central vascular congestion suspicious for cardiac decompensation. There is no evidence for pleural effusion. No confluent alveolar opacities are seen. There is no acute osseous pathology. IMPRESSION: 1. Decreased inspiration with evidence for central vascular congestion suspicious for early cardiac decompensation. ACT 112: Negative or not required by law. Electronically signed by: Star Pires M.D. 11/12/2021 3:12 PM Abdomen/Pelvis CT 11/12/21 17:32 CT abd pelvis IV con only CLINICAL HISTORY: Abdominal pain, distention. Evaluate for possible hydronephrosis. COMPARISON STUDY: 01/20/2020 CT DOSE: 1978.20 mGy.cm TECHNIQUE: Standard CT of the Abdomen and Pelvis was performed with IV contrast. A dose lowering technique was utilized adhering to the principles of ALARA. Contrast Volume: Optiray 320, 120 ml. The patient did not receive oral contrast. FINDINGS: Lung bases: The 5 mm pulmonary nodule seen on the CT of the chest is identified on the old CT of the abdomen and represents a benign finding. Abdominal cavity: There is no evidence for abdominal mass, adenopathy or ascites. Liver: There is homogeneous attenuation of the liver parenchyma. There is no evidence for enhancing mass lesion. Spleen: There is homogeneous attenuation of the splenic parenchyma. There is no enhancing mass lesion. Pancreas: There is homogeneous attenuation of the pancreatic parenchyma. There is no evidence for mass lesion or peripancreatic fluid collection. Gall Bladder: The gallbladder is well distended with no evidence for intraluminal calculi, wall thickening or pericholecystic edema. Adrenal glands: The adrenal glands are normal in size and attenuation. There is no evidence for enhancing mass lesion. Kidneys: There is homogeneous attenuation of the renal parenchyma bilaterally. There is no evidence for renal calculus or hydronephrosis. There is no evidence for enhancing mass. Bowel: There is a small to moderate size hiatal hernia. There is also evidence for diffuse gastric mucosal thickening. This could relate to nondistention. Clinical correlation is necessary. The bowel loops are normally placed within the abdomen and pelvis without evidence for dilatation or obstruction. There is no evidence for mass lesion. There are no inflammatory changes present. There is no evidence for free air. Bladder: Compared to previous study, there is marked distention of the urinary bladder despite placement of a Torres catheter. No focal bladder mass is identified. : There is no evidence for pelvic mass or adenopathy. There is no evidence for pelvic ascites. Vasculature: There is no evidence for aneurysmal dilatation of the abdominal aorta. Osseous structures: There is no acute osseous pathology. The patient is status post previous internal fixation of lumbar spine with evidence for lumbar canal stenosis. IMPRESSION: 1. Marked distention urinary bladder with no evidence for physiologic hydronephrosis. 2. Small to moderate size hiatal hernia and diffuse gastric coastal thickening. Follow-up is recommended. 3. The previously identified 5 mm pulmonary nodule at the right lung base on the patient's CT of the chest can be seen at the right lung base on the old CT of the abdomen and therefore represents a benign finding. ACT 112: Positive. There are findings on this exam that require communication between the performing entity and the patient following Patient Test Result Information Act ([place] Act 112) guidelines. Electronically signed by: Star Pires M.D. 11/12/2021 7:13 PM Chest CTA 11/12/21 17:32 CT angio chest w con CLINICAL HISTORY: Weakness. Vascular congestion on chest radiograph. COMPARISON STUDY: Portable chest from 11/12/2021 CT DOSE: TECHNIQUE: CT Angio of the chest was performed.followed by image post processing with coronal, and sagittal MIP reformats. Contrast Volume: Optiray 320, 120 ml FINDINGS: There is minimal breathing motion artifact. Vasculature: There is homogeneous perfusion of the pulmonary vasculature bilaterally. No intraluminal filling defects or evidence for pulmonary embolus is seen. Airway: The airway is clear. No endobronchial lesion is identified. Lungs: There is no definite evidence for vascular congestion by CT. There is a 5 mm right lower lobe pulmonary nodule as seen on image 153. There is also a linear density seen within the left upper lobe on image 284 which most likely represents subsegmental atelectasis versus scarring. No other evidence for pulmonary nodule is seen. The lungs are clear of acute alveolar opacities and air bronchograms. Pleura: There is no evidence for pleural effusion. There is no evidence for pneumothorax. Mediastinum: There is no evidence for pathologic adenopathy. The heart size is within normal limits. The thoracic aorta is within normal limits. There is no evidence for pericardial effusion. Osseous structures: There is no acute osseous pathology. Impression: 1. No CTA evidence for pulmonary embolus. 2. No acute chest disease. No evidence for vascular congestion as suspected radiographically. 3. There is a 5 mm right lower lobe pulmonary nodule and follow-up is recommended utilizing Fleischner criteria. Please refer to below summary of Fleischner criteria recommendations for follow-up of incidental CT nodules (Tevin Mary, Guidelines for management of small pulmonary nodules detected on CT scans: A statement from the Fleischner Society, Radiology 237: [phone].) SOLID NODULES Solitary nodule size: <6 mm * low risk patients: no follow-up needed * high risk patients: optional CT at 12 months Solitary nodule size: 6-8 mm * low risk patients: follow-up at 6-12 months, then consider further follow-up at 18-24 months * high risk patients: initial follow-up CT at 6-12 months and then at 18-24 months if no change Solitary nodule size: >8 mm * either low or high risk patients - consider follow-up CT at 3 months, and/or CT-PET, and/or biopsy Multiple nodules size: <6 mm * low risk patients: no routine follow-up * high risk patients: optional CT at 12 months Multiple nodules size: 6-8 mm * low risk patients: follow-up at 3-6 months, then consider further follow-up at 18-24 months * high risk patients: follow-up at 3-6 months, then at 18-24 months if no change Multiple nodules size: >8 mm * low risk patients: follow-up at 3-6 months, then consider further follow-up at 18-24 months * high risk patients: follow-up at 3-6 months, then at 18-24 months if no change Note: newly detected indeterminate nodule in persons 35 years of age or older. * low risk patients: minimal or absent history of smoking and/or other known risk factors * high risk patients: history of smoking or of other known risk factors (e.g. first degree relative with lung cancer, or exposure to asbestos, radon, uranium) * if a nodule up to 8 mm is partly solid or is ground glass further follow-up is required after 24 months to exclude possible slow growing adenocarcinoma (TOMAS) SUBSOLID NODULES Solitary pure ground-glass nodule * nodule size <6 mm - no CT follow-up required * nodule size >=6 mm - follow-up CT at 6-12 months, then every 2 years until 5 years Solitary part-solid nodule * nodule size <6 mm - no CT follow-up required * nodule size >=6 mm - follow-up CT at 3-6 months. If unchanged, and solid component remains <6 mm, then annual follow-up for 5 years Multiple subsolid nodules * nodule size <6 mm - follow-up CT at 3-6 months, consider further follow-up at 2 and 4 years if stable * nodule size >=6 mm - follow-up CT at 3-6 months, subsequent management based on the most suspicious nodule(s) ACT 112: Positive. There are findings on this exam that require communication between the performing entity and the patient following Patient Test Result [place] Act ([place] Act 112) guidelines. Electronically signed by: Star Pires M.D. 11/12/2021 7:03 PM Lumbar Puncture Fluoroscopy 11/12/21 17:34 FLUOROSCOPICALLY GUIDED LUMBAR PUNCTURE CLINICAL HISTORY: back surgery, wbc elevated, altered FLUOROSCOPY TIME: 1.8 minutes NUMBER OF FLUOROSCOPIC IMAGES: 1. Due to technical difficulties, the image could not be archived in PACS. PROCEDURE: Attempt was made to contact the patient's father and son. However, they could not be reached. This was discussed with Dr. Argueta who deemed the lumbar puncture medically necessary and therefore informed consent was not be obtained. The procedure was performed by Dr. Wray following a timeout. The right L3-4 interlaminar space was targeted. Skin overlying the space was prepped and draped in sterile fashion and local anesthesia was achieved with 1% lidocaine. Under intermittent fluoroscopic guidance, a 4 3/4 inch 20-gauge spinal needle was directed thecal sac. There was minimal return of cerebrospinal fluid. Fluid was initially blood-tinged but quickly cleared. A total of 9 cc of cerebrospinal fluid was collected in 4 vials and sent to the laboratory as ordered. The needle was removed. No immediate complications were evident. IMPRESSION: Successful fluoroscopically guided lumbar puncture with collection of 9 cc of cerebrospinal fluid which was sent to the laboratory for analysis as ordered. Fluid initially blood-tinged but quickly cleared. ACT 112: Negative or not required by law. Electronically signed by: Uvaldo Wray M.D. 11/12/2021 7:57 PM Discharge Plan Visit Data Chief Complaint: Altered Mental Status ED Provider: Rubin Argueta Discharge Problem: Altered mental status, Acute hyponatremia, Acute urinary retention, Hypomagnesemia, Hypokalemia, Leukocytosis Patient Disposition: Admitted As Inpatient Condition: Serious Discharge Instructions Interventions: ED Discharge Assessment Last Done: 11/12/21 20:02
--- NOTE | 2021-11-12 15:14 | XRay Report ---
XR chest 1V portable CLINICAL HISTORY: weakness. Evaluate cardiopulmonary status COMPARISON STUDY: 02/05/2020 TECHNIQUE: 1 view of the chest FINDINGS: Single frontal view of the chest demonstrates the cardiomediastinal silhouette to be within normal li mits. There is a decreased inspiratory effort with elevation of the hemidiaphragms and crowding of th e bronchovascular markings at the lung bases and centrally. Additionally, there is evidence for mild central vascular congestion suspicious for cardiac decompensation. There is no evidence for pleural e ffusion. No confluent alveolar opacities are seen. There is no acute osseous pathology. IMPRESSION: 1. Decreased inspiration with evidence for central vascular congestion suspicious for early cardiac d ecompensation. ACT 112: Negative or not required by law. Electronically signed by: Star Pires M.D. 11/12/2021 3:12 PM
[2021-11-12 15:45] LABS: Basophils # (auto) 0.02 K/uL (0-0.2); Basophils % (auto) 0.1 %; Eosinophils # (auto) 0.01 K/uL (0-0.5); Hemoglobin 14.3 g/dL (12.0-16.0); Immature Granulocytes # (auto) 0.15 K/uL (0.00-0.02); Immature Granulocytes % (auto) 0.7 %; Lymphocytes % (auto) 8.2 %; Mean Corpuscular Hemoglobin 30.7 pg (25-34); Mean Corpuscular Hgb Conc 36.7 g/dL (32-36); Mean Corpuscular Volume 83.7 fL (80-100); Mean Platelet Volume 8.8 fL (7.4-10.4); Monocytes # (auto) 1.56 K/uL (0.11-0.59); Monocytes % (auto) 7.1 %; Neutrophils # (auto) 18.38 K/uL (1.4-6.5); Neutrophils % (auto) 83.9 %; Platelet Count 449 K/uL (130-400); RDW Coefficient of Variation 12.3 % (11.5-14.5); RDW Standard Deviation 37.3 fL (36.4-46.3); Red Blood Count 4.66 M/uL (4.2-5.4); White Blood Count 21.92 K/uL (4.8-10.8)
--- NOTE | 2021-11-12 16:03 | CT Scan Report ---
CT head/brain wo con CLINICAL HISTORY: 56 years-old Female with alcohol, confused, poss trauma. Acutely altered mental st atus TECHNIQUE: Multiple axial CT images of the head were obtained without contrast. A dose lowering tech nique was utilized adhering to the principles of ALARA. CT DOSE: 1547.15 mGy.cm COMPARISON: Head CT 02/05/2020 FINDINGS: No acute intracranial hemorrhage, midline shift, intracranial mass, hydrocephalus, territorial ischem ia or abnormal extra-axial collection. Motion degraded exam. The study was then repeated which was al so motion degraded. The calvarium is intact. Mastoid air cells are clear. Mild mucosal thickening of the nasal turbinate s. IMPRESSION: Motion degraded exam. No acute intracranial abnormality identified. ACT 112: Negative or not required by law. The above report was generated using voice recognition software. It may contain grammatical, syntax o r spelling errors. Electronically signed by: Maxime Betancourt M.D. 11/12/2021 4:00 PM
[2021-11-12 16:04] LABS: Acetaminophen < 3 ug/ml (10-30); Salicylate < 3.0 mg/dl (3.0-30)
[2021-11-12] MEDS ORDERED: cefTRIAXone SODIUM 2,000 MG/70 ML BAG IV STA (16:05)
[2021-11-12 16:07] LABS: Alanine Aminotransferase 30 U/L (7-52); Albumin Globulin Ratio 1.6 (0.9-2); Albumin Level 4.5 gm/dl (3.4-5.0); Alkaline Phosphatase 120 U/L (34-104); Anion Gap 13 (3-11); Aspartate Aminotransferase 40 U/L (13-39); BUN Creatinine Ratio 7.7 (10-20); Bilirubin,Total 0.7 mg/dl (0.2-1.0); Blood Urea Nitrogen 4 mg/dl (6-23); Calcium 8.4 mg/dl (8.5-10.1); Carbon Dioxide 22 mmol/L (21-32); Chloride 80 mmol/L (98-107); Creatine Kinase 753 U/L (26-192); Est GFR (African American) 122.1 ml/min; Est GFR (Non-African American) 105.3 ml/min; Globulin 2.9 gm/dl (2.5-4.0); Glucose 92 mg/dl (70-99(Fasting)); Magnesium 1.5 mg/dl (1.7-2.4); Sodium 115 mmol/L (136-145); Total Protein 7.4 gm/dl (6.0-8.3)
[2021-11-12] MEDS ORDERED: HALOPERIDOL LACTATE 5 MG/ML 1 ML VIAL IV STA (16:07)
[2021-11-12] MEDS ORDERED: LORazepam 2 MG/1 ML VIAL IV STA (16:07)
[2021-11-12] MEDS ORDERED: SODIUM CHLORIDE 3 % 100 ML IV ONE (16:21)
[2021-11-12] MEDS ORDERED: SODIUM CHLORIDE 3 % 50 ML IV STA (16:47)
[2021-11-12] MEDS ORDERED: LIDOCAINE 1% LOCAL 20 ML VIAL ONE (16:51)
[2021-11-12 16:55] LABS: Appearance Urine Clear (Clear); Bilirubin Urine Negative (Negative); Blood Urine Negative (Negative); Color Urine Yellow; Glucose Urine UA Negative (Negative); Ketones Urine Trace (Negative); Leukocyte Esterase Urine Negative (Negative); Nitrite Urine Negative (Negative); Protein Urine Negative (Negative); Specific Gravity Urine 1.004 (1.000-1.030); Urobilinogen Urine Negative (Negative)
[2021-11-12 17:24] LABS: Amphetamines+Metham, Urine Neg (Neg); Barbiturates, Urine Neg (Neg); Benzodiazepine, Urine Pos (Neg); Cocaine, Urine Neg (Neg); MDMA (Ecstacy), Urine Neg (Neg); Methadone, Urine Neg (Neg); Opiate, Urine Neg (Neg); Phencyclidine, Urine Neg (Neg)
[2021-11-12] MEDS ORDERED: VANCOMYCIN CONSULT ACTIVE PRN (17:46)
[2021-11-12] MEDS ORDERED: VANCOMYCIN HCL 2,250 MG in SODIUM CHLORIDE 0.9% 500 ML IV ONE (17:46)
--- NOTE | 2021-11-12 18:16 | Electrocardiogram Report ---
Test Reason : Blood Pressure : / mmHG Vent. Rate : 089 BPM Atrial Rate : 089 BPM P-R Int : 128 ms QRS Dur : 086 ms QT Int : 408 ms P-R-T Axes : 026 014 050 degrees QTc Int : 496 ms Poor data quality, interpretation may be adversely affected Normal sinus rhythm Normal ECG When compared with ECG of 05-FEB-2020 13:44, QT has lengthened Confirmed by Elier Ontiveros ([id number]) on 11/12/2021 6:16:23 PM Referred By: Confirmed By:Charles Ontiveros
[2021-11-12] MEDS ORDERED: OPTIRAY 320 125ml IV ONE (18:18)
--- NOTE | 2021-11-12 19:06 | CT Scan Report ---
CT angio chest w con CLINICAL HISTORY: Weakness. Vascular congestion on chest radiograph. COMPARISON STUDY: Portable chest from 11/12/2021 CT DOSE: TECHNIQUE: CT Angio of the chest was performed.followed by image post processing with coronal, and s agittal MIP reformats. Contrast Volume: Optiray 320, 120 ml FINDINGS: There is minimal breathing motion artifact. Vasculature: There is homogeneous perfusion of the pulmonary vasculature bilaterally. No intraluminal filling defects or evidence for pulmonary embolus is seen. Airway: The airway is clear. No endobronchial lesion is identified. Lungs: There is no definite evidence for vascular congestion by CT. There is a 5 mm right lower lobe pulmonary nodule as seen on image 153. There is also a linear density seen within the left upper lobe on image 284 which most likely represents subsegmental atelectasis versus scarring. No other evidenc e for pulmonary nodule is seen. The lungs are clear of acute alveolar opacities and air bronchograms. Pleura: There is no evidence for pleural effusion. There is no evidence for pneumothorax. Mediastinum: There is no evidence for pathologic adenopathy. The heart size is within normal limits. The thoracic aorta is within normal limits. There is no evidence for pericardial effusion. Osseous structures: There is no acute osseous pathology. Impression: 1. No CTA evidence for pulmonary embolus. 2. No acute chest disease. No evidence for vascular congestion as suspected radiographically. 3. There is a 5 mm right lower lobe pulmonary nodule and follow-up is recommended utilizing Fleischne r criteria. Please refer to below summary of Fleischner criteria recommendations for follow-up of incidental CT n odules (Tevin Mary, Guidelines for management of small pulmonary nodules detected on CT scans: A sta tement from the Fleischner Society, Radiology 237: [phone].) SOLID NODULES Solitary nodule size: <6 mm * low risk patients: no follow-up needed * high risk patients: optional CT at 12 months Solitary nodule size: 6-8 mm * low risk patients: follow-up at 6-12 months, then consider further follow-up at 18-24 months * high risk patients: initial follow-up CT at 6-12 months and then at 18-24 months if no change Solitary nodule size: >8 mm * either low or high risk patients - consider follow-up CT at 3 months, and/or CT-PET, and/or biopsy Multiple nodules size: <6 mm * low risk patients: no routine follow-up * high risk patients: optional CT at 12 months Multiple nodules size: 6-8 mm * low risk patients: follow-up at 3-6 months, then consider further follow-up at 18-24 months * high risk patients: follow-up at 3-6 months, then at 18-24 months if no change Multiple nodules size: >8 mm * low risk patients: follow-up at 3-6 months, then consider further follow-up at 18-24 months * high risk patients: follow-up at 3-6 months, then at 18-24 months if no change Note: newly detected indeterminate nodule in persons 35 years of age or older. * low risk patients: minimal or absent history of smoking and/or other known risk factors * high risk patients: history of smoking or of other known risk factors (e.g. first degree relative with lung cancer, or exposure to asbestos, radon, uranium) * if a nodule up to 8 mm is partly solid or is ground glass further follow-up is required after 24 m onths to exclude possible slow growing adenocarcinoma (TOMAS) SUBSOLID NODULES Solitary pure ground-glass nodule * nodule size <6 mm - no CT follow-up required * nodule size >=6 mm - follow-up CT at 6-12 months, then every 2 years until 5 years Solitary part-solid nodule * nodule size <6 mm - no CT follow-up required * nodule size >=6 mm - follow-up CT at 3-6 months. If unchanged, and solid component remains <6 mm, then annual follow-up for 5 years Multiple subsolid nodules * nodule size <6 mm - follow-up CT at 3-6 months, consider further follow-up at 2 and 4 years if sta ble * nodule size >=6 mm - follow-up CT at 3-6 months, subsequent management based on the most suspiciou s nodule(s) ACT 112: Positive. There are findings on this exam that require communication between the performing entity and the patient following Patient Test Result Information Act ([place] Act 112) guidelines. Electronically signed by: Star Pires M.D. 11/12/2021 7:03 PM
--- NOTE | 2021-11-12 19:15 | CT Scan Report ---
CT abd pelvis IV con only CLINICAL HISTORY: Abdominal pain, distention. Evaluate for possible hydronephrosis. COMPARISON STUDY: 01/20/2020 CT DOSE: 1978.20 mGy.cm TECHNIQUE: Standard CT of the Abdomen and Pelvis was performed with IV contrast. A dose lowering chucky hnique was utilized adhering to the principles of ALARA. Contrast Volume: Optiray 320, 120 ml. The patient did not receive oral contrast. FINDINGS: Lung bases: The 5 mm pulmonary nodule seen on the CT of the chest is identified on the old CT of the abdomen and represents a benign finding. Abdominal cavity: There is no evidence for abdominal mass, adenopathy or ascites. Liver: There is homogeneous attenuation of the liver parenchyma. There is no evidence for enhancing m ass lesion. Spleen: There is homogeneous attenuation of the splenic parenchyma. There is no enhancing mass lesion . Pancreas: There is homogeneous attenuation of the pancreatic parenchyma. There is no evidence for mas s lesion or peripancreatic fluid collection. Gall Bladder: The gallbladder is well distended with no evidence for intraluminal calculi, wall thick ening or pericholecystic edema. Adrenal glands: The adrenal glands are normal in size and attenuation. There is no evidence for enhan cing mass lesion. Kidneys: There is homogeneous attenuation of the renal parenchyma bilaterally. There is no evidence f or renal calculus or hydronephrosis. There is no evidence for enhancing mass. Bowel: There is a small to moderate size hiatal hernia. There is also evidence for diffuse gastric mu cosal thickening. This could relate to nondistention. Clinical correlation is necessary. The bowel lo ops are normally placed within the abdomen and pelvis without evidence for dilatation or obstruction. There is no evidence for mass lesion. There are no inflammatory changes present. There is no evidenc e for free air. Bladder: Compared to previous study, there is marked distention of the urinary bladder despite placem ent of a Torres catheter. No focal bladder mass is identified. : There is no evidence for pelvic mass or adenopathy. There is no evidence for pelvic ascites. Vasculature: There is no evidence for aneurysmal dilatation of the abdominal aorta. Osseous structures: There is no acute osseous pathology. The patient is status post previous internal fixation of lumbar spine with evidence for lumbar canal stenosis. IMPRESSION: 1. Marked distention urinary bladder with no evidence for physiologic hydronephrosis. 2. Small to moderate size hiatal hernia and diffuse gastric coastal thickening. Follow-up is recommen ded. 3. The previously identified 5 mm pulmonary nodule at the right lung base on the patient's CT of the chest can be seen at the right lung base on the old CT of the abdomen and therefore represents a zainab gn finding. ACT 112: Positive. There are findings on this exam that require communication between the performing entity and the patient following Patient Test Result Information Act ([place] Act 112) guidelines. Electronically signed by: Star Pires M.D. 11/12/2021 7:13 PM
[2021-11-12 19:23] LABS: Anion Gap 9 (3-11); BUN Creatinine Ratio 6.7 (10-20); Blood Urea Nitrogen 4 mg/dl (6-23); C Reactive Protein 0.83 mg/dl (0-0.5); Calcium 7.7 mg/dl (8.5-10.1); Carbon Dioxide 22 mmol/L (21-32); Chloride 90 mmol/L (98-107); Est GFR (African American) 116.4 ml/min; Est GFR (Non-African American) 100.5 ml/min; Glucose 86 mg/dl (70-99(Fasting)); Potassium 3.2 mmol/L (3.5-5.1); Sodium 121 mmol/L (136-145)
[2021-11-12] MEDS ORDERED: ACETAMINOPHEN 1,000 MG/100 ML VIAL IV STA (19:25)
--- NOTE | 2021-11-12 19:59 | Fluoroscopy Report ---
FLUOROSCOPICALLY GUIDED LUMBAR PUNCTURE CLINICAL HISTORY: back surgery, wbc elevated, altered FLUOROSCOPY TIME: 1.8 minutes NUMBER OF FLUOROSCOPIC IMAGES: 1. Due to technical difficulties, the image could not be archived in [facility]. PROCEDURE: Attempt was made to contact the patient's father and son. However, they could not be reach ed. This was discussed with Dr. Argueta who deemed the lumbar puncture medically necessary and therefor e informed consent was not be obtained. The procedure was performed by Dr. Wray following a time out. The right L3-4 interlaminar space was targeted. Skin overlying the space was prepped and draped in sterile fashion and local anesthesia was achieved with 1% lidocaine. Under intermittent fluoroscop ic guidance, a 4 3/4 inch 20-gauge spinal needle was directed thecal sac. There was minimal return of cerebrospinal fluid. Fluid was initially blood-tinged but quickly cleared. A total of 9 cc of cerebr ospinal fluid was collected in 4 vials and sent to the laboratory as ordered. The needle was removed. No immediate complications were evident. IMPRESSION: Successful fluoroscopically guided lumbar puncture with collection of 9 cc of cerebrospin al fluid which was sent to the laboratory for analysis as ordered. Fluid initially blood-tinged but q uickly cleared. ACT 112: Negative or not required by law. Electronically signed by: Uvaldo Wray M.D. 11/12/2021 7:57 PM
[2021-11-12 20:02] LABS: Total Protein CSF 49.6 mg/dl (15-45)
[2021-11-12 20:03] LABS: Appearance CSF Clear; CSF Count Tube # 3; CSF Xanthrochromic No xanthochromia; Color CSF Colorless; Red Blood Cell CSF (A) 0 /uL (0-); Red Blood Cell CSF (B) 0 /uL (0-); White Blood Cell CSF (A) 0 /uL (0-5); White Blood Cell CSF (B) 0 /uL (0-5)
--- NOTE | 2021-11-12 20:23 | History & Physical Report ---
Date of Service November 12, 2021 Assessment & Plan (1) Acute metabolic encephalopathy: Plan: Patient is admitted with confusion. Found trying to break into another person's apartment in her apartment building. Ivonne has long history of alcoholism. Patient also takes venlafaxine. Patient found to be tachycardic, feverish. Initially concern over infection, however procal and inflammatory markers are negative. Except for CRP being elevated. Doubt infection. LP essentially negative except for elevated protein. Hyponatremia may be driving factor with her symptoms. Patient is also at risk of serotonin syndrome, Patient received vanco and ceftriaxone in ED. will hold further vanco. If this is serotonin syndrome, conservative management, as long as vitals remain stable. will recheck CK in AM. electrolytes. will hold SNRI and psych meds for now. In regards to her sodium, received in ER 3% hypertonic saline.]will recheck, goal would be 121 within first 24 hours. (2) Hyponatremia: Plan: received hypertonic saline as stated above. (3) Alcoholism: Plan: will order AWSS. (4) Dyslipidemia: Plan: hold off meds (5) Depression: Plan: hold off meds Admission and Anticipated Discharge Date Admission Date: November 12, 2021 History of Present Illness Chief Complaint: Confusion Primary Care Provider: Maegan Brooks DO Patient is a 56 yo female. Patient is currently sedated for lumbar puncture. History obtained by chart review and discussion with ER provider. Patient was brought in by EMS for presumed alcohol intoxication. It appears patient was trying to break into someone else's apartment in her same apartment building. Police were called to the scene. When police arrived, her refrigerator was open with beer cans all obver her apartment. Patient does not answer questioning. Patient does have long history of alcoholism. Allergies Allergy/AdvReac Type Severity Reaction Status Date / Time capsaicin Allergy Mild DIARRHEA Unverified 10/08/21 14:47 diclofenac Allergy Mild DIARRHEA Unverified 10/08/21 14:47 ciprofloxacin Allergy Unknown ITCHING Verified 10/08/21 14:47 metronidazole Allergy Unknown ITCHING Verified 10/08/21 14:47 Gabapentin CAPS AdvReac Intermediate edema Uncoded 10/08/21 14:47 Home Medications Medication Instructions Recorded Confirmed Type temazepam 30 mg capsule 30 mg PO HS cap 03/07/19 10/08/21 History venlafaxine 75 mg capsule,extended 75 mg PO DAILY cap 03/07/19 10/08/21 History release 24 hr triamcinolone acetonide 0.1 % 1 appln TOP BID #80 gm 06/04/19 10/08/21 Rx topical cream trazodone 100 mg tablet 100 mg PO HS tab 04/07/20 10/08/21 History cholecalciferol (vitamin D3) 50 2,000 unit PO DAILY #90 cap 04/22/20 10/08/21 Rx mcg (2,000 unit) capsule alprazolam 1 mg tablet See Rx Instructions .ROUTE 11/12/20 10/08/21 History .COMPLEX PRN tab ziprasidone HCl 40 mg capsule 40 mg PO DAILY cap 11/12/20 10/08/21 History light mineral oil 1 %-mineral oil drp OPHTHALMIC (EYE) PRN 05/24/21 10/08/21 History 4.5 % eye drops (Soothe XP) amlodipine 5 mg tablet 5 mg PO DAILY #90 tab 06/07/21 10/08/21 Rx docusate sodium 100 mg capsule 100 mg PO TID #180 cap 07/27/21 10/08/21 Rx (Colace) atorvastatin 20 mg tablet 20 mg PO DAILY #90 tab 08/13/21 10/08/21 Rx losartan 50 mg tablet 50 mg PO BID #180 tab 08/18/21 10/08/21 Rx colchicine 0.6 mg capsule See Rx Instructions .ROUTE 10/08/21 10/08/21 Rx .COMPLEX #3 cap diclofenac sodium 75 mg 75 mg PO BID #180 tab 10/13/21 Rx tablet,delayed release fluocinonide 0.05 % topical cream 1 applic TOP BID #60 gm 10/13/21 Rx fluticasone propionate 50 2 spray INTNAS DAILY #15.8 ml 10/13/21 Rx mcg/actuation nasal spray,suspension (Flonase Allergy Relief) loratadine 10 mg tablet (Claritin) 10 mg PO DAILY #90 tab 10/13/21 Rx pantoprazole 40 mg tablet,delayed 40 mg PO DAILY #90 tab 10/13/21 Rx release potassium chloride 20 mEq See Rx Instructions .ROUTE 10/13/21 Rx tablet,extended release(part/cryst) .COMPLEX #270 tab Past Med/Surg History Medical History Acid reflux Alcoholism Anxiety Arthritis Benign essential hypertension Cervical disc disease Depression Dermatitis Dyslipidemia Fatty liver Lumbar disc disease Lumbar spinal stenosis Microscopic colitis Mood disorder Pulmonary nodule Pulmonary nodules Vitamin D deficiency Surgical History H/O sinus surgery H/O tubal ligation History of back surgery History of tonsillectomy Hx of unilateral salpingectomy d/t ectopic Family History Father Colitis Hypertension Mother Hypertension Grandfather (Paternal) Myocardial infarction Coronary heart disease Sister Hypertension Denies family history of Ovarian cancer Prostate cancer Breast cancer Colorectal cancer Social History Smoking Status: Unknown if ever smoked Tobacco Type: Cigarettes packs per day: 1; Cigarettes Per Day: 20; Second Hand Exposure: No; Hx Alcohol Use: Yes Alcohol Intake Frequency: 4 or More x per/Week Hx Substance Use: No Preferred Language: Slovak Communication Ability: Effective Visual Impairment: No Limitations Hearing Ability: Normal Electroencephalograph Technician Required: No Beliefs That Will Affect Care: None marital status: Single Current Living Situation: Alone Current Living Situation Comment: with help available current occupational status: disabled Feels Safe at Home: Yes Childhood Exposure to Second-Hand Smoke: No caffeine: Yes during the past year weight has: decreased > 10 lbs Dental Care, Regularly: Yes Physical Activity Frequency: 3-4 Times per Week Physical Activity Frequency Comment: due to physical condition Seatbelt Use: always Sunscreen Use: No Review of Systems Review of Systems: Unobtainable due to cognitive status Physical Exam Constitutional: + intoxicated appearing Eyes: PERRL, conjunctivae normal, anicteric sclerae ENMT: external ear and nose normal, oropharynx normal Neck: trachea midline, no thyromegaly Respiratory: normal respiratory effort, lungs clear to auscultation Cardiovascular: RRR, no murmur, no edema Gastrointestinal (Abdomen): normal bowel sounds, soft, nontender, no hepatosplenomegaly Musculoskeletal: Head/Neck/Chest: + head abnormal to inspection Skin: no rashes, warm and dry Neurologic: patient is lethargic. Psychiatric: lethargic Lymphatic: no cervical or axillary lymphadenopathy Results & Data Results & Data ([facility]) Vital Signs (Past 12 Hours) Vital Signs Temp Pulse Pulse Resp BP BP Pulse Ox 11/12/21 18:52 38.1 C H 100 H 18 91 11/12/21 17:30 95 H 22 141/79 H 97 11/12/21 17:20 90 22 94 11/12/21 17:10 23 161/119 H 95 11/12/21 17:00 94 H 21 97 11/12/21 16:50 88 22 98 11/12/21 16:40 89 20 97 11/12/21 16:30 89 15 97 11/12/21 16:20 96 11/12/21 16:18 96 H 16 141/79 H 95 11/12/21 15:40 80 18 99 11/12/21 15:30 84 17 97 11/12/21 15:20 96 11/12/21 15:10 85 97 11/12/21 15:00 95 11/12/21 14:56 98 11/12/21 14:54 86 15 11/12/21 14:44 87 16 11/12/21 14:43 36.6 C 87 18 140/83 96 PG Care Time/CCT Total # of Minutes Spent Total Time Spent with Patient: Total time spent is greater than 50% in coordination of care (as documented) at patient's floor/unit and/or counseling patient: Coding Level of Care Code 16256 Initial Inpt Care Lvl 3 Diagnoses Acute metabolic encephalopathy G93.41 Hyponatremia E87.1 Alcoholism F10.20 Dyslipidemia E78.5 Depression F32.9 Time Spent (min) 90
[2021-11-12] MEDS ORDERED: LORazepam 1 MG TAB PO PRN (21:13)
[2021-11-12] MEDS ORDERED: ACETAMINOPHEN 1,000 MG/100 ML VIAL IV ONE (21:15)
[2021-11-12 21:36] LABS: Base Excess VBG -2.7 mEq/L; HCO3 VBG 23 mmol/L; PCO2 VBG 44 mmHg (38-50); PO2 VBG 29 mmHg; pH VBG 7.34 (7.36-7.41)
[2021-11-12 21:37] LABS: Oxygen Saturation VBG < 60.0 %
[2021-11-12] MEDS: LOSARTAN POTASSIUM 50 MG TAB PO SCH (22:01)
[2021-11-12] MEDS: POTASSIUM CHLORIDE / WTR 10 MEQ/100 ML PLCT IV SCH ×3 (22:01→23:57)
[2021-11-12 22:10] LABS: Cryptococcus neoformans/ga PCR Not Detected (NotDetected); Cytomegalovirus PCR Not Detected (NotDetected); Enterovirus PCR Not Detected (NotDetected); Escherichia coli K1 PCR Not Detected (NotDetected); Haemophilius influenzae PCR Not Detected (NotDetected); Herpes Simplex Virus 1 PCR Not Detected (NotDetected); Herpes Simplex Virus 2 PCR Not Detected (NotDetected); Human Herpes Virus 6 PCR Not Detected (NotDetected); Human Parechovirus PCR Not Detected (NotDetected); Listeria monocytogenes PCR Not Detected (NotDetected); Neisseria meningitidis PCR Not Detected (NotDetected); Streptococcus agalactiae PCR Not Detected (NotDetected); Streptococcus pneumoniae PCR Not Detected (NotDetected); Varicella Zoster Virus PCR Not Detected (NotDetected)
[2021-11-12] MEDS ORDERED: DESMOPRESSIN ACETATE 1 MCG in SODIUM CHLORIDE 0.9% 50 ML IV STA (22:10)
[2021-11-12] MEDS ORDERED: DESMOPRESSIN ACETATE 1 MCG in SYRINGE 0 ML IV ONE (22:30)
[2021-11-12] MEDS ORDERED: KETOROLAC TROMETHAMINE 15 MG/ML VIAL IV ONE (22:43)
--- NOTE | 2021-11-12 22:43 | Communication Note ---
Date of Service: November 12, 2021 Notified by patient's RN that she was poorly responsive. She had also become febrile over the course of the evening, initially to 38.1C, and increasingly tac hycardic to the low 100s (sinus rhythm). BP stable in the 150-170/90 range. Her chart was reviewed. On presentation to EMS, patient was altered. Apparently she was trying to get into one of her neighbors apartments. At some point between transport and arrival in the ER, patient became less responsive (?). She was noted to have hyponatremia to 115 on arrival. Given altered mental status, leukocytosis, and fever, LP was performed, which was largely negative except for mildly elevated protein in CSF. On my arrival into the patient's room, she was lying in the left lateral decubitus position. She would intermittently respond to painful stimuli, but did not respond to verbal stimuli. She appeared diaphoretic. She was snoring. She is unable to provide meaningful history. I did talk with patient's admitting physician, who said she presented similarly upon his exam. Of note, she did receive Ativan and Haldol prior to her LP. Temperature 38.8, heart rate 102, respiratory rate 20, blood pressure 160/80, saturation 94% on room air. Patient appears diaphoretic but well perfused. No obvious rigors. Cardiactachycardic with regular rhythm, S1 and S2 present without murmurs rubs or gallops. Respiratorytransmission of upper airway sounds with snoring, otherwise symmetric expansion of the chest, lungs clear to auscultation bilaterally without crackles or wheezes. Abdominalabdomen is soft, nontender, nondistended to palpation. Neurologicpupils appear normal in size and are equal and reactive to light. Oculocephalic reflex intact. Examination of the upper and lower extremities does not reveal spasticity. Brachial and patellar reflexes 2+ bilaterally. Babinski negative. Assessment and plan: 1. Encephalopathy - in setting of hyponatremia, fever, tachycardia, recent BZD/Haldol administration, and known EtOH abuse. Unfortunately, do not have a baseline assessment prior to her receipt of Ativan and Haldol earlier in the afternoon. Hyponatremia likely contributing to a notable degree. Possibly degree of EtOH withdrawal too (e.g., if patient stopped suddenly a few days [facility] given low EtOH level on admission). Atop this -- considered septic encephalopathy certainly a possibility, though no clear source. Her CSF does not reveal evidence of active infection, though her elevated protein count could be consistent with a viral encephalitis. Also on the differential includes overdose of one of her medications (noted that she is on venlafaxine, divalproex, trazodone, ziprasidone)though med list has not been reconciled, and unable to get ahold of family despite 2 attempts. I did reach out to poison control to discuss her medications and presentation; at this time, there is no clear overlap between her findings and a specific toxidrome (e.g., if there was an overdose). Hold from BZDs right now. Continue monitoring for serotonin syndrome, which is also on the differential. Continue close monitoring of airway with low threshold to escalate to BiPAP/intubation if needed. Notified restorer [employer] on-call in case of need for escalation of care. 2. Fever, leukocytosis. Tmax at 40C around 2200. Concern is infection until proven otherwise, though no obvious source. As mentioned above, also cannot rule out overdose of one of her home medications given lack of history. Procal negative x 2. Left shift noted. CSF testing negative. s/p receipt of CFTX and v ancomycin in ED. Will check anaplasma and Lyme tests now and give an empiric one-time dose of doxycycline 100mg given the high prevalence in the area, high fevers, mild transaminitis, and relative lymphopenia. Tylenol. Toradol. Cooling blanket. 3. Hypotonic Hyponatremia. On presentation, at 115 with otherwise normal kidney labs. She received a one-time 50cc dose of 3% NaCl in addition to 1000 mL of 0.9% NaCl. She looks somewhat dry to me now - no e/o volume overload. Nima further labs to characterize pattern - sOsm and uOsm are low, Zohaib 31 with FENa at 1.1%. Suspect hypovolemic vs. euvolemic subclass - possibly beer potomania + ?salt wasting nephropathy. She has output 3700cc urine to this point. Her recheck Na is 126, approx. +9 since arrival. In setting of rapidly rising Na and high UOP, will give DDAVP 1mcg x 1 now and continue serial Na rechecks. Discussed with attending physician throughout w/u. Will continue to monitor. In close contact with patient's RN. Resident Activity Tracking Resident Involvement: Resident Care Provided Care Provided: Adult [facility]
[2021-11-12] MEDS ORDERED: DOXYCYCLINE HYCLATE 100 MG in DEXTROSE 5% 100 ML IV STA (23:09)
[2021-11-12 23:28] LABS: Creatinine Urine Random 12.8 mg/dl
[2021-11-12 23:35] LABS: Basophils # (auto) 0.01 K/uL (0-0.2); Basophils % (auto) 0.1 %; Hemoglobin 12.9 g/dL (12.0-16.0); Immature Granulocytes # (auto) 0.05 K/uL (0.00-0.02); Immature Granulocytes % (auto) 0.3 %; Lymphocytes # (auto) 0.79 K/uL (1.2-3.4); Lymphocytes % (auto) 5.1 %; Mean Corpuscular Hemoglobin 30.4 pg (25-34); Mean Corpuscular Volume 84.7 fL (80-100); Monocytes # (auto) 1.49 K/uL (0.11-0.59); Monocytes % (auto) 9.6 %; Neutrophils # (auto) 13.17 K/uL (1.4-6.5); Neutrophils % (auto) 84.9 %; Platelet Count 427 K/uL (130-400); RDW Coefficient of Variation 12.4 % (11.5-14.5); RDW Standard Deviation 38.2 fL (36.4-46.3); Red Blood Count 4.25 M/uL (4.2-5.4); White Blood Count 15.51 K/uL (4.8-10.8)
[2021-11-12 23:46] LABS: Alanine Aminotransferase 26 U/L (7-52); Albumin Globulin Ratio 1.5 (0.9-2); Alkaline Phosphatase 98 U/L (34-104); Anion Gap 9 (3-11); Aspartate Aminotransferase 44 U/L (13-39); BUN Creatinine Ratio 5.6 (10-20); Bilirubin,Total 0.6 mg/dl (0.2-1.0); Blood Urea Nitrogen 4 mg/dl (6-23); C Reactive Protein 1.61 mg/dl (0-0.5); Calcium 7.9 mg/dl (8.5-10.1); Carbon Dioxide 24 mmol/L (21-32); Chloride 94 mmol/L (98-107); Creatine Kinase 1117 U/L (26-192); Est GFR (African American) 108.8 ml/min; Est GFR (Non-African American) 93.9 ml/min; Globulin 2.7 gm/dl (2.5-4.0); Glucose 98 mg/dl (70-99(Fasting)); Potassium 3.1 mmol/L (3.5-5.1); Sodium 127 mmol/L (136-145); Total Protein 6.7 gm/dl (6.0-8.3)
[2021-11-12 23:51] LABS: Mean Corpuscular Hgb Conc 35.8 g/dL (32-36)
[2021-11-12] MEDS: MAGNESIUM SULFATE / D5W 1 GM/100 ML BAG IV SCH (23:57)
[2021-11-13] LABS: Procalcitonin < 0.05 ng/ml (0-0.5)
[2021-11-13 00:06] LABS: Lyme Ab IgG w/WB Rflx Negative (Negative); Lyme Ab IgM w/WB Rflx Negative (Negative)
[2021-11-13] MEDS: POTASSIUM CHLORIDE / WTR 10 MEQ/100 ML PLCT IV SCH ×9 (00:47→17:31)
[2021-11-13] MEDS ORDERED: KETOROLAC TROMETHAMINE 15 MG/ML VIAL ONE (00:49)
[2021-11-13] MEDS ORDERED: LORazepam 2 MG/1 ML VIAL IV STA ×8 (01:06→13:52)
[2021-11-13] MEDS ORDERED: LORazepam 2 MG/1 ML VIAL ONE ×2 (01:08→09:12)
[2021-11-13] MEDS ORDERED: LORazepam 2 MG/1 ML VIAL IV PRN (01:13)
[2021-11-13] MEDS ORDERED: DESMOPRESSIN ACETATE 2 MCG in SYRINGE 0 ML IV ONE ×2 (01:45→02:00)
[2021-11-13] MEDS ORDERED: DESMOPRESSIN ACETATE 1 MCG in SYRINGE 0 ML IV ONE (01:45)
[2021-11-13] MEDS ORDERED: DEXTROSE 5% IV SCH (02:00)
[2021-11-13] MEDS: ACETAMINOPHEN 1000 MG/100 ML IV IV PRN (03:08)
[2021-11-13] MEDS ORDERED: OLANZapine 10 MG/2.1 ML SDV IM STA (03:20)
[2021-11-13] MEDS ORDERED: OLANZapine 10 MG/2.1 ML SDV IM ONE (03:26)
[2021-11-13] MEDS ORDERED: LORazepam 2 MG/1 ML VIAL IM PRN (03:31)
[2021-11-13] MEDS: MAGNESIUM SULFATE / D5W 1 GM/100 ML BAG IV SCH ×3 (04:14→04:16)
[2021-11-13] MEDS ORDERED: DEXTROSE 5% 500 ML IV SCH (07:30)
[2021-11-13 08:00] LABS: Hematocrit (blood only) 35.6 % (37-47); Hemoglobin 12.7 g/dL (12.0-16.0); Mean Corpuscular Hemoglobin 30.4 pg (25-34); Mean Corpuscular Hgb Conc 35.7 g/dL (32-36); Mean Corpuscular Volume 85.2 fL (80-100); Mean Platelet Volume 9.3 fL (7.4-10.4); Platelet Count 409 K/uL (130-400); RDW Coefficient of Variation 12.4 % (11.5-14.5); RDW Standard Deviation 38.4 fL (36.4-46.3); Red Blood Count 4.18 M/uL (4.2-5.4); White Blood Count 16.98 K/uL (4.8-10.8)
[2021-11-13 08:07] LABS: Albumin Level 4.1 gm/dl (3.4-5.0); BUN Creatinine Ratio 8.6 (10-20); Bilirubin Direct 0.1 mg/dl (0-0.2); Bilirubin,Total 0.8 mg/dl (0.2-1.0); C Reactive Protein 3.12 mg/dl (0-0.5); Calcium 8.1 mg/dl (8.5-10.1); Creatinine Clr Calc Pharmacy 115.1 ml/min; Est GFR (African American) 117.8 ml/min; Est GFR (Non-African American) 101.6 ml/min; Potassium 2.8 mmol/L (3.5-5.1); Total Protein 6.7 gm/dl (6.0-8.3)
[2021-11-13] MEDS: LOSARTAN POTASSIUM 50 MG TAB PO SCH ×2 (08:39→21:29)
[2021-11-13] MEDS: PANTOprazole 40 MG TAB PO SCH (08:40)
[2021-11-13] MEDS ORDERED: D5W AND 1/4NSS + 20MEQ KCL 20 MEQ/1,000 ML BAG IV SCH (10:00)
[2021-11-13] MEDS ORDERED: MAGNESIUM SULFATE / D5W 1 GM/100 ML BAG IV SCH (10:00)
[2021-11-13] MEDS: DESMOPRESSIN ACETATE 4 MCG/ML 1 ML AMP SQ SCH ×2 (10:49→17:32)
[2021-11-13 11:20] LABS: Magnesium 2.2 mg/dl (1.7-2.4)
--- NOTE | 2021-11-13 13:19 | Electrocardiogram Report ---
Test Reason : Blood Pressure : / mmHG Vent. Rate : 091 BPM Atrial Rate : 091 BPM P-R Int : 148 ms QRS Dur : 074 ms QT Int : 370 ms P-R-T Axes : 012 051 030 degrees QTc Int : 455 ms Normal sinus rhythm Nonspecific ST abnormality Abnormal ECG When compared with ECG of 12-NOV-2021 15:28, No significant change was found Confirmed by Clayton Ware ([id number]) on 11/13/2021 1:18:36 PM Referred By: REFERRED SELF Confirmed By:Clayton Ware
[2021-11-13] MEDS ORDERED: THIAMINE HCL 100 MG in SYRINGE 9 ML IV STA (14:43)
[2021-11-13 15:49] LABS: Phosphorus 1.2 mg/dl (2.5-4.9)
[2021-11-13] MEDS ORDERED: POTASSIUM PHOS 3 MMOL/1 ML INFUSION IV STA (16:00)
[2021-11-13] MEDS ORDERED: POTASSIUM PHOSPHATE 21 MMOL in DEXTROSE 5% 500 ML IV ONE (16:15)
[2021-11-13] MEDS ORDERED: POTASSIUM PHOSPHATE 21 MMOL in SODIUM CHLORIDE 0.9% 500 ML IV ONE (16:30)
--- NOTE | 2021-11-13 16:51 | Critical Care Consultation ---
Date of Consultation November 13, 2021 Assessment & Plan (1) Acute metabolic encephalopathy: Reason Critically Ill: 56-year-old female with acute agitated delirium and severe hyponatremia PLAN: Neuro: Agitated delirium Acute metabolic encephalopathy -serotonin syndrome versus acute alcohol withdrawal vs symptomatic hyponatremia -Consider this unlikely to represent viral encephalitis, minimal elevation of protein and DNA PCR's negative -If having continued fevers and on resolving mental status changes would possibly consider repeat lumbar puncture in 48 to 72 hours -Phenobarbital protocol for presumptive alcohol withdrawal -High-dose thiamine repletion Substance abuse -Marijuana positive Resp: End-tidal CO2 monitoring CV: Tachycardia Fluids/Renal: Hyponatremia -Patient's sodium increased to 125 -Continue DDAVP for the next 12 to 24 hours ID: Fever with leukocytosis - blood cultures and CSF culture remains negative, CSF bio fire negative, minimally elevated protein, UA unremarkable for infectious process - Received ceftriaxone, doxycycline, vancomycin in emergency department -Empiric acyclovir in interim: False negatives are rare but risk of acyclovir and renal function marginal GI/Nutrition: N.p.o. Transaminitis -Hepatitis panel: This was previously negative in 2019 Heme: Leukocytosis -Unclear significance DVT prophylaxis: Heparin 5000 twice daily to minimize risk if she needs subsequent lumbar puncture Endocrine: ICU hyperglycemia protocol Vascular access: Peripheral IVs Code Status: Full code Disposition: ICU (2) Agitation: (3) Hyponatremia: Supervising Physician Co-Signing Physician Notes I have personally spent 70 minutes of critical care time in the direct management of this patient. This is a life/limb threatening event. This includes time spent evaluating patient, direct bedside care, chart review, keyla cing orders, interpretation of diagnostic studies, discussion with consultants, patient, and/or family members regarding treatment decisions, as well as other required patient management activities. This time is exclusive of all separately billable procedures, and teaching time and separate from and in addition to any other critical care service time. History of Present Illness Reason for Consultation: Agitated delirium Requesting Physician: Salo Yancey Attending Physician: Salo Yancey History of Present Illness History is obtained from prior records and discussion with hospitalist team secondary to patient having acute agitated delirium. From admission delirium has continued and she is required large amounts of benzodiazepines and still is not redirectable attempting to get out of bed placing herself at risk for falls, disoriented. Allergies Allergy/AdvReac Type Severity Reaction Status Date / Time capsaicin Allergy Mild DIARRHEA Unverified 10/08/21 14:47 diclofenac Allergy Mild DIARRHEA Unverified 10/08/21 14:47 ciprofloxacin Allergy Unknown ITCHING Verified 10/08/21 14:47 metronidazole Allergy Unknown ITCHING Verified 10/08/21 14:47 Gabapentin CAPS AdvReac Intermediate edema Uncoded 10/08/21 14:47 Home Medications Medication Instructions Recorded Confirmed Type temazepam 30 mg capsule 30 mg PO HS cap 03/07/19 10/08/21 History venlafaxine 75 mg capsule,extended 75 mg PO DAILY cap 03/07/19 10/08/21 History release 24 hr triamcinolone acetonide 0.1 % 1 appln TOP BID #80 gm 06/04/19 10/08/21 Rx topical cream trazodone 100 mg tablet 100 mg PO HS tab 04/07/20 10/08/21 History cholecalciferol (vitamin D3) 50 2,000 unit PO DAILY #90 cap 04/22/20 10/08/21 Rx mcg (2,000 unit) capsule alprazolam 1 mg tablet See Rx Instructions .ROUTE 11/12/20 10/08/21 History .COMPLEX PRN tab ziprasidone HCl 40 mg capsule 40 mg PO DAILY cap 11/12/20 10/08/21 History light mineral oil 1 %-mineral oil drp OPHTHALMIC (EYE) PRN 05/24/21 10/08/21 History 4.5 % eye drops (Soothe XP) amlodipine 5 mg tablet 5 mg PO DAILY #90 tab 06/07/21 10/08/21 Rx docusate sodium 100 mg capsule 100 mg PO TID #180 cap 07/27/21 10/08/21 Rx (Colace) atorvastatin 20 mg tablet 20 mg PO DAILY #90 tab 08/13/21 10/08/21 Rx losartan 50 mg tablet 50 mg PO BID #180 tab 08/18/21 10/08/21 Rx colchicine 0.6 mg capsule See Rx Instructions .ROUTE 10/08/21 10/08/21 Rx .COMPLEX #3 cap diclofenac sodium 75 mg 75 mg PO BID #180 tab 10/13/21 Rx tablet,delayed release fluocinonide 0.05 % topical cream 1 applic TOP BID #60 gm 10/13/21 Rx fluticasone propionate 50 2 spray INTNAS DAILY #15.8 ml 10/13/21 Rx mcg/actuation nasal spray,suspension (Flonase Allergy Relief) loratadine 10 mg tablet (Claritin) 10 mg PO DAILY #90 tab 10/13/21 Rx pantoprazole 40 mg tablet,delayed 40 mg PO DAILY #90 tab 10/13/21 Rx release potassium chloride 20 mEq See Rx Instructions .ROUTE 10/13/21 Rx tablet,extended release(part/cryst) .COMPLEX #270 tab Patient History Medical History Acid reflux Alcoholism Anxiety Arthritis Benign essential hypertension Cervical disc disease Depression Dermatitis Dyslipidemia Fatty liver Lumbar disc disease Lumbar spinal stenosis Microscopic colitis Mood disorder Pulmonary nodule Pulmonary nodules Vitamin D deficiency Surgical History H/O sinus surgery H/O tubal ligation History of back surgery History of tonsillectomy Hx of unilateral salpingectomy d/t ectopic Family History Father Colitis Hypertension Mother Hypertension Grandfather (Paternal) Myocardial infarction Coronary heart disease Sister Hypertension Denies family history of Ovarian cancer Prostate cancer Breast cancer Colorectal cancer Social History Smoking Status: Unknown if ever smoked Tobacco Type: Cigarettes packs per day: 1; Cigarettes Per Day: 20; Second Hand Exposure: No; Hx Alcohol Use: Yes Alcohol Intake Frequency: 4 or More x per/Week Hx Substance Use: No Preferred Language: Turkmen Communication Ability: Effective Visual Impairment: No Limitations Hearing Ability: Normal Hat And Cap Opener Required: No Beliefs That Will Affect Care: None marital status: Single Current Living Situation: Alone Current Living Situation Comment: with help available current occupational status: disabled Feels Safe at Home: Yes Childhood Exposure to Second-Hand Smoke: No caffeine: Yes during the past year weight has: decreased > 10 lbs Dental Care, Regularly: Yes Physical Activity Frequency: 3-4 Times per Week Physical Activity Frequency Comment: due to physical condition Seatbelt Use: always Sunscreen Use: No Review of Systems Review of Systems: Unobtainable due to cognitive status Results & Data Results & Data ([facility]) Vital Signs (Past 12 Hours) Vital Signs Temp Pulse Pulse Resp BP Pulse Ox 11/13/21 14:53 103 H 11/13/21 12:25 85 11/13/21 11:28 37.3 C 87 18 124/74 97 11/13/21 07:25 37.5 C 81 16 114/57 L 95 Critical Care Results & Data Vital Signs (Past 12 Hours) Vital Signs Temp Pulse Pulse Resp BP Pulse Ox 11/13/21 14:53 103 H 11/13/21 12:25 85 11/13/21 11:28 37.3 C 87 18 124/74 97 11/13/21 07:25 37.5 C 81 16 114/57 L 95 Lab & Micro Results (Past 24 Hours) RBC 4.18 M/uL (4.2-5.4) L 11/13/21 WBC 16.98 K/uL (4.8-10.8) H 11/13/21 Hgb 12.7 g/dL (12.0-16.0) 11/13/21 Hct 35.6 % (37-47) L 11/13/21 MCV 85.2 fL (80-100) 11/13/21 MCH 30.4 pg (25-34) 11/13/21 MCHC 35.7 g/dL (32-36) 11/13/21 RDW Standard Deviation 38.4 fL (36.4-46.3) 11/13/21 RDW Coefficient of Variation 12.4 % (11.5-14.5) 11/13/21 Plt Count 409 K/uL (130-400) H 11/13/21 MPV 9.3 fL (7.4-10.4) 11/13/21 Neutrophils (%) (Auto) 84.9 % 11/12/21 Lymphocytes (%) (Auto) 5.1 % 11/12/21 Monocytes # (Auto) 1.49 K/uL (0.11-0.59) H 11/12/21 Eosinophils # (Auto) 0.00 K/uL (0-0.5) 11/12/21 Immature Granulocyte % (Auto) 0.3 % 11/12/21 Neutrophils # (Auto) 13.17 K/uL (1.4-6.5) H 11/12/21 Lymphocytes # (Auto) 0.79 K/uL (1.2-3.4) L 11/12/21 Monocytes # (Auto) 1.49 K/uL (0.11-0.59) H 11/12/21 Eosinophils # (Auto) 0.00 K/uL (0-0.5) 11/12/21 Basophils # (Auto) 0.01 K/uL (0-0.2) 11/12/21 Immature Granulocyte # (Auto) 0.05 K/uL (0.00-0.02) H 11/12/21 Na 125 mmol/L (136-145) L 11/13/21 K 3.0 mmol/L (3.5-5.1) L 11/13/21 Cl 93 mmol/L (98-107) L 11/13/21 CO2 23 mmol/L (21-32) 11/13/21 Anion Gap 8 (3-11) 11/13/21 BUN 5 mg/dl (6-23) L 11/13/21 Creatinine 0.58 mg/dl (0.6-1.2) L 11/13/21 Estimated GFR ( Amer) 117.8 ml/min 11/13/21 Estimated GFR (Non-Af Amer) 101.6 ml/min 11/13/21 BUN/Creatinine Ratio 8.6 (10-20) L 11/13/21 Glu 121 mg/dl (70-99(Fasting)) H 11/13/21 Ca 8.1 mg/dl (8.5-10.1) L 11/13/21 Phosphorus Level 1.2 mg/dl (2.5-4.9) L* 11/13/21 Total Bilirubin 0.8 mg/dl (0.2-1.0) 11/13/21 Direct Bilirubin 0.1 mg/dl (0-0.2) 11/13/21 AST 54 U/L (13-39) H 11/13/21 ALT 29 U/L (7-52) 11/13/21 Alkaline Phosphatase 94 U/L (34-104) 11/13/21 TP 6.7 gm/dl (6.0-8.3) 11/13/21 Albumin 4.1 gm/dl (3.4-5.0) 11/13/21 Globulin 2.7 gm/dl (2.5-4.0) 11/12/21 Albumin/Globulin Ratio 1.5 (0.9-2) 11/12/21 Mg 2.2 mg/dl (1.7-2.4) 11/13/21 10:49 11/13/21 Calcium Level 8.1 mg/dl (8.5-10.1) L 11/13/21 06:37 11/13/21 Venous Blood pH 7.34 (7.36-7.41) L 11/12/21 21:25 11/12/21 Venous Blood Partial Pressure CO2 44 mmHg (38-50) 11/12/21 21:25 11/12/21 Venous Blood Partial Pressure O2 29 mmHg 11/12/21 21:25 11/12/21 Venous Blood HCO3 23 mmol/L 11/12/21 21:25 11/12/21 Venous Blood Base Excess -2.7 mEq/L 11/12/21 21:11/12/21 Venous Blood Oxygen Saturation < 60.0 % 11/12/21 21:25 11/12/21 Blood Gas Barometric Pressure 728.0 mm/Hg 11/12/21 21:25 11/12/21 Blood Gas Barometric Pressure 728.0 mm/Hg 11/12/21 21:25 11/12/21 Microbiology 11/12/21 19:29 Gram Stain - Final Cerebral Spinal Fluid CSF Culture - Preliminary No growth to date. Diagnostic Findings (Past 24 Hours) Abdomen/Pelvis CT 11/12/21 17:32 CT abd pelvis IV con only CLINICAL HISTORY: Abdominal pain, distention. Evaluate for possible hydronephrosis. COMPARISON STUDY: 01/20/2020 CT DOSE: 1978.20 mGy.cm TECHNIQUE: Standard CT of the Abdomen and Pelvis was performed with IV contrast. A dose lowering technique was utilized adhering to the principles of ALARA. Contrast Volume: Optiray 320, 120 ml. The patient did not receive oral contrast. FINDINGS: Lung bases: The 5 mm pulmonary nodule seen on the CT of the chest is identified on the old CT of the abdomen and represents a benign finding. Abdominal cavity: There is no evidence for abdominal mass, adenopathy or ascites. Liver: There is homogeneous attenuation of the liver parenchyma. There is no evidence for enhancing mass lesion. Spleen: There is homogeneous attenuation of the splenic parenchyma. There is no enhancing mass lesion. Pancreas: There is homogeneous attenuation of the pancreatic parenchyma. There is no evidence for mass lesion or peripancreatic fluid collection. Gall Bladder: The gallbladder is well distended with no evidence for intraluminal calculi, wall thickening or pericholecystic edema. Adrenal glands: The adrenal glands are normal in size and attenuation. There is no evidence for enhancing mass lesion. Kidneys: There is homogeneous attenuation of the renal parenchyma bilaterally. There is no evidence for renal calculus or hydronephrosis. There is no evidence for enhancing mass. Bowel: There is a small to moderate size hiatal hernia. There is also evidence for diffuse gastric mucosal thickening. This could relate to nondistention. Clinical correlation is necessary. The bowel loops are normally placed within the abdomen and pelvis without evidence for dilatation or obstruction. There is no evidence for mass lesion. There are no inflammatory changes present. There is no evidence for free air. Bladder: Compared to previous study, there is marked distention of the urinary bladder despite placement of a Torres catheter. No focal bladder mass is identified. : There is no evidence for pelvic mass or adenopathy. There is no evidence for pelvic ascites. Vasculature: There is no evidence for aneurysmal dilatation of the abdominal aorta. Osseous structures: There is no acute osseous pathology. The patient is status post previous internal fixation of lumbar spine with evidence for lumbar canal stenosis. IMPRESSION: 1. Marked distention urinary bladder with no evidence for physiologic hydronephrosis. 2. Small to moderate size hiatal hernia and diffuse gastric coastal thickening. Follow-up is recommended. 3. The previously identified 5 mm pulmonary nodule at the right lung base on the patient's CT of the chest can be seen at the right lung base on the old CT of the abdomen and therefore represents a benign finding. ACT 112: Positive. There are findings on this exam that require communication between the performing entity and the patient following Patient Test Result Information Act ([place] Act 112) guidelines. Electronically signed by: Star Pires M.D. 11/12/2021 7:13 PM Chest CTA 11/12/21 17:32 CT angio chest w con CLINICAL HISTORY: Weakness. Vascular congestion on chest radiograph. COMPARISON STUDY: Portable chest from 11/12/2021 CT DOSE: TECHNIQUE: CT Angio of the chest was performed.followed by image post processing with coronal, and sagittal MIP reformats. Contrast Volume: Optiray 320, 120 ml FINDINGS: There is minimal breathing motion artifact. Vasculature: There is homogeneous perfusion of the pulmonary vasculature bilaterally. No intraluminal filling defects or evidence for pulmonary embolus is seen. Airway: The airway is clear. No endobronchial lesion is identified. Lungs: There is no definite evidence for vascular congestion by CT. There is a 5 mm right lower lobe pulmonary nodule as seen on image 153. There is also a linear density seen within the left upper lobe on image 284 which most likely represents subsegmental atelectasis versus scarring. No other evidence for pulmonary nodule is seen. The lungs are clear of acute alveolar opacities and air bronchograms. Pleura: There is no evidence for pleural effusion. There is no evidence for pneumothorax. Mediastinum: There is no evidence for pathologic adenopathy. The heart size is within normal limits. The thoracic aorta is within normal limits. There is no evidence for pericardial effusion. Osseous structures: There is no acute osseous pathology. Impression: 1. No CTA evidence for pulmonary embolus. 2. No acute chest disease. No evidence for vascular congestion as suspected radiographically. 3. There is a 5 mm right lower lobe pulmonary nodule and follow-up is recommended utilizing Fleischner criteria. Please refer to below summary of Fleischner criteria recommendations for follow- up of incidental CT nodules (Tevin Mary, Guidelines for management of small pulmonary nodules detected on CT scans: A statement from the Fleischner Society, Radiology 237: [phone].) SOLID NODULES Solitary nodule size: <6 mm * low risk patients: no follow-up needed * high risk patients: optional CT at 12 months Solitary nodule size: 6-8 mm * low risk patients: follow-up at 6-12 months, then consider further follow-up at 18-24 months * high risk patients: initial follow-up CT at 6-12 months and then at 18-24 months if no change Solitary nodule size: >8 mm * either low or high risk patients - consider follow-up CT at 3 months, and/or CT-PET, and/or biopsy Multiple nodules size: <6 mm * low risk patients: no routine follow-up * high risk patients: optional CT at 12 months Multiple nodules size: 6-8 mm * low risk patients: follow-up at 3-6 months, then consider further follow-up at 18-24 months * high risk patients: follow-up at 3-6 months, then at 18-24 months if no change Multiple nodules size: >8 mm * low risk patients: follow-up at 3-6 months, then consider further follow-up at 18-24 months * high risk patients: follow-up at 3-6 months, then at 18-24 months if no change Note: newly detected indeterminate nodule in persons 35 years of age or older. * low risk patients: minimal or absent history of smoking and/or other known risk factors * high risk patients: history of smoking or of other known risk factors (e.g. first degree relative with lung cancer, or exposure to asbestos, radon, uranium) * if a nodule up to 8 mm is partly solid or is ground glass further follow-up is required after 24 months to exclude possible slow growing adenocarcinoma ([facility]OMAS) SUBSOLID NODULES Solitary pure ground-glass nodule * nodule size <6 mm - no CT follow-up required * nodule size >=6 mm - follow-up CT at 6-12 months, then every 2 years until 5 years Solitary part-solid nodule * nodule size <6 mm - no CT follow-up required * nodule size >=6 mm - follow-up CT at 3-6 months. If unchanged, and solid component remains <6 mm, then annual follow-up for 5 years Multiple subsolid nodules * nodule size <6 mm - follow-up CT at 3-6 months, consider further follow-up at 2 and 4 years if stable * nodule size >=6 mm - follow-up CT at 3-6 months, subsequent management based on the most suspicious nodule(s) ACT 112: Positive. There are findings on this exam that require communication between the performing entity and the patient following Patient Test Result Information Act ([place] Act 112) guidelines. Electronically signed by: Star Pires M.D. 11/12/2021 7:03 PM Lumbar Puncture Fluoroscopy 11/12/21 17:34 FLUOROSCOPICALLY GUIDED LUMBAR PUNCTURE CLINICAL HISTORY: back surgery, wbc elevated, altered FLUOROSCOPY TIME: 1.8 minutes NUMBER OF FLUOROSCOPIC IMAGES: 1. Due to technical difficulties, the image could not be archived in PACS. PROCEDURE: Attempt was made to contact the patient's father and son. However, they could not be reached. This was discussed with Dr. Argueta who deemed the lumbar puncture medically necessary and therefore informed consent was not be obtained. The procedure was performed by Dr. Wray following a timeout. The right L3-4 interlaminar space was targeted. Skin overlying the space was prepped and draped in sterile fashion and local anesthesia was achieved with 1% lidocaine. Under intermittent fluoroscopic guidance, a 4 3/4 inch 20-gauge spinal needle was directed thecal sac. There was minimal return of cerebrospinal fluid. Fluid was initially blood-tinged but quickly cleared. A total of 9 cc of cerebrospinal fluid was collected in 4 vials and sent to the laboratory as ordered. The needle was removed. No immediate complications were evident. IMPRESSION: Successful fluoroscopically guided lumbar puncture with collection of 9 cc of cerebrospinal fluid which was sent to the laboratory for analysis as ordered. Fluid initially blood-tinged but quickly cleared. ACT 112: Negative or not required by law. Electronically signed by: Uvaldo Wray M.D. 11/12/2021 7:57 PM I & O Totals 24 Hours 11/12/21 11/13/21 11/14/21 06:59 06:59 06:59 Intake Total 3882.866 / 3882.866 1005 / 1005 Output Total 4500 / 4500 1000 / 1000 Balance -617.134 / -617.134 Cumulative 11/12/21 14:19 thru 11/13/21 16:37 Intake Total 4887.866 Output Total 5500 Balance -612.134 RT Ventilator Mngmt (Last Documented) Ventilator Ordered Settings Respiratory Rate 18 11/13/21 11:28 Ventilator - PT Measurements Respiratory Rate 18 Coding Level of Care Code Critical Care 1st 30-74 mins Diagnoses Agitation R45.1 Acute metabolic encephalopathy G93.41 Hyponatremia E87.1
[2021-11-13] MEDS ORDERED: PHENobarbital sodium 130 MG/ML VIAL IV PRN (16:54)
[2021-11-13] MEDS ORDERED: PHENobarbital sodium 130 MG/ML VIAL IV ONE (17:10)
[2021-11-13] MEDS ORDERED: PHENOBARBITAL SODIUM IV PRN (17:29)
[2021-11-13] MEDS ORDERED: PHENOBARBITAL SODIUM IV ONE (17:30)
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
[2021-11-13 18:04] LABS: BUN Creatinine Ratio 8.5 (10-20); Calcium 7.9 mg/dl (8.5-10.1); Creatinine Clr Calc Pharmacy 142.1 ml/min; Est GFR (African American) 126.2 ml/min; Est GFR (Non-African American) 108.9 ml/min; Potassium 3.1 mmol/L (3.5-5.1)
[2021-11-13] MEDS: THIAMINE HCL 500 MG in SODIUM CHLORIDE 0.9% 50 ML IV SCH (18:05)
[2021-11-13] MEDS: ACYCLOVIR SOD 800 MG in DEXTROSE 5% 250 ML IV SCH (18:05)
[2021-11-13] MEDS: DESMOPRESSIN ACETATE 2 MCG in SODIUM CHLORIDE 0.9% 50 ML IV SCH ×2 (18:05→23:34)
[2021-11-13 18:06] LABS: Phosphorus 1.5 mg/dl (2.5-4.9)
[2021-11-13] MEDS: PHENOBARBITAL SODIUM IV SCH ×2 (19:48→23:54)
[2021-11-13] MEDS ORDERED: PHENobarbital sodium 130 MG/ML VIAL IV SCH (20:00)
[2021-11-13] MEDS ORDERED: PHENobarbital sodium 65 MG/ML VIAL IV PRN (21:12)
[2021-11-13] MEDS: HEPARIN SOD 5,000 UNIT/0.5 ML VIAL SQ SCH (21:29)
[2021-11-13] MEDS ORDERED: PHENobarbital sodium 65 MG/ML VIAL IV SCH (23:00)
[2021-11-13 23:58] LABS: BUN Creatinine Ratio 8.5 (10-20); Calcium 7.7 mg/dl (8.5-10.1); Creatinine Clr Calc Pharmacy 142.1 ml/min; Est GFR (African American) 126.2 ml/min; Est GFR (Non-African American) 108.9 ml/min; Potassium 2.9 mmol/L (3.5-5.1)
[2021-11-14] MEDS ORDERED: POTASSIUM PHOS 3 MMOL/1 ML INFUSION IV STA (00:10)
[2021-11-14] MEDS ORDERED: POTASSIUM CHLORIDE CRTAB 20 MEQ TABCR PO STA (00:43)
[2021-11-14] MEDS ORDERED: POTASSIUM PHOSPHATE 30 MMOL in SODIUM CHLORIDE 0.9% 500 ML IV ONE (00:45)
[2021-11-14] MEDS: ACYCLOVIR SOD 800 MG in DEXTROSE 5% 250 ML IV SCH ×2 (01:28→08:35)
[2021-11-14] MEDS: THIAMINE HCL 500 MG in SODIUM CHLORIDE 0.9% 50 ML IV SCH ×2 (01:29→08:35)
[2021-11-14] MEDS: DESMOPRESSIN ACETATE 2 MCG in SODIUM CHLORIDE 0.9% 50 ML IV SCH (06:02)
[2021-11-14 07:27] LABS: Basophils # (auto) 0.03 K/uL (0-0.2); Basophils % (auto) 0.2 %; Eosinophils # (auto) 0.02 K/uL (0-0.5); Eosinophils % (auto) 0.1 %; Hematocrit (blood only) 31.3 % (37-47); Hemoglobin 11.8 g/dL (12.0-16.0); Immature Granulocytes # (auto) 0.05 K/uL (0.00-0.02); Immature Granulocytes % (auto) 0.3 %; Lymphocytes # (auto) 1.49 K/uL (1.2-3.4); Lymphocytes % (auto) 8.6 %; Mean Corpuscular Hemoglobin 32.3 pg (25-34); Mean Corpuscular Hgb Conc 37.7 g/dL (32-36); Mean Corpuscular Volume 85.8 fL (80-100); Mean Platelet Volume 9.1 fL (7.4-10.4); Monocytes # (auto) 1.37 K/uL (0.11-0.59); Neutrophils # (auto) 14.27 K/uL (1.4-6.5); Neutrophils % (auto) 82.8 %; Platelet Count 360 K/uL (130-400); RDW Coefficient of Variation 12.4 % (11.5-14.5); RDW Standard Deviation 38.9 fL (36.4-46.3); Red Blood Count 3.65 M/uL (4.2-5.4); White Blood Count 17.23 K/uL (4.8-10.8)
[2021-11-14] MEDS: PANTOprazole 40 MG TAB PO SCH (08:28)
[2021-11-14] MEDS: LOSARTAN POTASSIUM 50 MG TAB PO SCH ×2 (08:28→20:29)
[2021-11-14] MEDS: PHENobarbitaL 30 MG TAB PO SCH ×2 (08:28→20:29)
[2021-11-14 08:29] LABS: BUN Creatinine Ratio 7.6 (10-20); Calcium 7.5 mg/dl (8.5-10.1); Est GFR (African American) 95.6 ml/min; Est GFR (Non-African American) 82.5 ml/min; Magnesium 1.9 mg/dl (1.7-2.4); Phosphorus 4.8 mg/dl (2.5-4.9); Potassium 3.4 mmol/L (3.5-5.1)
[2021-11-14] MEDS: HEPARIN SOD 5,000 UNIT/0.5 ML VIAL SQ SCH ×2 (08:34→20:32)
--- NOTE | 2021-11-14 11:50 | Nephrology Consultation ---
Date of Consultation November 14, 2021 Assessment & Plan (1) Altered mental status: (2) Acute hyponatremia: (3) Hypokalemia: (4) Hypomagnesemia: (5) Hypophosphatemia: (6) Hypocalcemia: (7) Vitamin D deficiency: Acute change in mental status with history of alcoholism acute hyponatremia and multiple other critical electrolyte abnormality with low urine osmolality. Phosphate, Mg improved, K still low at 3.4 Sodium has been around 124-126 over last 24 hours. -- replace potassium -- Since sodium has been 124-126 over last 24 hours, discontinue DDAVP and let sodium slowly rise, upto 134 in next 24 h, monitor Ns q 12 h -- encourage p.o. intake, high protein diet -- check vitamin D and replace as needed Will follow, Thank you for the consultation. History of Present Illness Reason for Consultation: multiple critical electrolyte abnormality. Attending Physician: Salo Yancey History of Present Illness Geri Clancy is a 56-year-old female with known history of alcoholism, brought to ER by EMS yesterday for presumed alcohol intoxication. Nephrology consult was requested and she was noted to have multiple critical electrolyte abnormalities including hyponatremia, hypokalemia hypophosphatemia as well as hypomagnesemia. Human records reviewed in detail during patient's visit. Geri was brought by EMS for presumed alcohol intoxication. please call as she was found attempting to break into someone else's apartment in her same apartment building. When the police got into her home, her refrigerator was open and there were cans of beer everywhere. In ER lab showed Na 115, magnesium 1.5, phosphate was 1.2, calcium 7.5, potassium was 2 was 2.8. Sodium rapidly improved to 124 yesterday and she was started on reviewing DDAVP, this morning sodium was 126. Phosphate normalized, magnesium was improved. Calcium remains slightly low. Potassium this morning was 3.4. Urine osmolality was low at 115 with serum osmolality 257. TSH was normal. Renal functions normal baseline creatinine 0.5-0.7. UA unremarkable, no glycosuria. CT abdomen pelvis otherwise unremarkable. She had history of mild hyponatremia before. Long history of alcohol abuse, also on venlafaxine. Has not been on thiazide diuretics. h/o HTN, on Amlodipine. Long h/o alcoholism. . On disability. from prior Multiple back surgery. She is awake and alert this morning was answering some the question appropriately however she does not recall why she was brought to the hospital. Allergies Allergy/AdvReac Type Severity Reaction Status Date / Time capsaicin Allergy Mild DIARRHEA Unverified 10/08/21 14:47 diclofenac Allergy Mild DIARRHEA Unverified 10/08/21 14:47 ciprofloxacin Allergy Unknown ITCHING Verified 10/08/21 14:47 metronidazole Allergy Unknown ITCHING Verified 10/08/21 14:47 Gabapentin CAPS AdvReac Intermediate edema Uncoded 10/08/21 14:47 Home Medications Medication Instructions Recorded Confirmed Type temazepam 30 mg capsule 30 mg PO HS cap 03/07/19 10/08/21 History venlafaxine 75 mg capsule,extended 75 mg PO DAILY cap 03/07/19 10/08/21 History release 24 hr triamcinolone acetonide 0.1 % 1 appln TOP BID #80 gm 06/04/19 10/08/21 Rx topical cream trazodone 100 mg tablet 100 mg PO HS tab 04/07/20 10/08/21 History cholecalciferol (vitamin D3) 50 2,000 unit PO DAILY #90 cap 04/22/20 10/08/21 Rx mcg (2,000 unit) capsule alprazolam 1 mg tablet See Rx Instructions .ROUTE 11/12/20 10/08/21 History .COMPLEX PRN tab ziprasidone HCl 40 mg capsule 40 mg PO DAILY cap 11/12/20 10/08/21 History light mineral oil 1 %-mineral oil drp OPHTHALMIC (EYE) PRN 05/24/21 10/08/21 History 4.5 % eye drops (Soothe XP) amlodipine 5 mg tablet 5 mg PO DAILY #90 tab 06/07/21 10/08/21 Rx docusate sodium 100 mg capsule 100 mg PO TID #180 cap 07/27/21 10/08/21 Rx (Colace) atorvastatin 20 mg tablet 20 mg PO DAILY #90 tab 08/13/21 10/08/21 Rx losartan 50 mg tablet 50 mg PO BID #180 tab 08/18/21 10/08/21 Rx colchicine 0.6 mg capsule See Rx Instructions .ROUTE 10/08/21 10/08/21 Rx .COMPLEX #3 cap diclofenac sodium 75 mg 75 mg PO BID #180 tab 10/13/21 Rx tablet,delayed release fluocinonide 0.05 % topical cream 1 applic TOP BID #60 gm 10/13/21 Rx fluticasone propionate 50 2 spray INTNAS DAILY #15.8 ml 10/13/21 Rx mcg/actuation nasal spray,suspension (Flonase Allergy Relief) loratadine 10 mg tablet (Claritin) 10 mg PO DAILY #90 tab 10/13/21 Rx pantoprazole 40 mg tablet,delayed 40 mg PO DAILY #90 tab 10/13/21 Rx release potassium chloride 20 mEq See Rx Instructions .ROUTE 10/13/21 Rx tablet,extended release(part/cryst) .COMPLEX #270 tab Patient History Medical History (Updated 11/14/21 @ 11:53 by Lula Anne MD) Acid reflux Alcoholism Anxiety Arthritis Benign essential hypertension Cervical disc disease Depression Dermatitis Dyslipidemia Fatty liver Hypocalcemia Hypophosphatemia Lumbar disc disease Lumbar spinal stenosis Microscopic colitis Mood disorder Pulmonary nodule Pulmonary nodules Vitamin D deficiency Surgical History H/O sinus surgery H/O tubal ligation History of back surgery History of tonsillectomy Hx of unilateral salpingectomy d/t ectopic Family History Father Colitis Hypertension Mother Hypertension Grandfather (Paternal) Myocardial infarction Coronary heart disease Sister Hypertension Denies family history of Ovarian cancer Prostate cancer Breast cancer Colorectal cancer Social History Smoking Status: Unknown if ever smoked Tobacco Type: Cigarettes packs per day: 1; Cigarettes Per Day: 20; Second Hand Exposure: No; Hx Alcohol Use: Yes Alcohol Intake Frequency: 4 or More x per/Week Hx Substance Use: No Preferred Language: Syriac Communication Ability: Effective Visual Impairment: No Limitations Hearing Ability: Normal 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 Physical Exam Constitutional: WD/WN, vitals as above no acute distress Eyes: + anicteric sclerae ENMT: Ears: no hearing impairment Neck: normal visual inspection Respiratory: no respiratory distress and no cough Auscultation: lungs clear to auscultation bilaterally Cardiovascular: Rate/Rhythm: regular rate and regular rhythm Extremities: no edema Gastrointestinal (Abdomen): Inspection/Auscultation: abdomen normal to inspection and normal bowel sounds Percussion/Palpation: abdomen soft; abdomen nontender Musculoskeletal: Extremities: extremities normal to inspection Skin: no rashes Neurologic: no focal motor deficits and not confused Psychiatric: Orientation: alert and oriented x 3 Affect: euthymic affect Results & Data ([facility]) Vital Signs (Past 12 Hours) Vital Signs Temp Pulse Resp BP Pulse Ox 11/14/21 06:00 83 20 92/58 L 92 11/14/21 05:00 82 18 90/55 L 96 11/14/21 04:00 83 18 99/76 L 93 11/14/21 03:00 91 H 16 127/95 93 11/14/21 02:01 91 H 11 L 129/88 98 11/14/21 02:00 90 7 L 96 11/14/21 01:00 79 18 115/80 95 11/14/21 00:00 36.8 C 79 16 96/76 L 94 PG Care Time/CCT Total # of Minutes Spent Total Time Spent with Patient: Total time spent is greater than 50% in coordination of care (as documented) at patient's floor/unit and/or counseling patient: Coding Level of Care Code 33741 Inpt Consult Level 5 Diagnoses Altered mental status R40.0 Altered mental status type: somnolence Acute hyponatremia E87.1 Hypokalemia E87.6 Hypomagnesemia E83.42 Hypophosphatemia E83.39 Hypocalcemia E83.51 Vitamin D deficiency E55.9 (1) Altered mental status Altered mental status type: somnolence Qualified Code(s): R40.0 - Somnolence
--- NOTE | 2021-11-14 11:51 | Critical Care Progress Note ---
Date of Service November 14, 2021 Assessment & Plan (1) Acute metabolic encephalopathy: Plan: Reason Critically Ill: 56-year-old female with acute agitated delirium and severe hyponatremia PLAN: Neuro: Agitated delirium: resolved Acute metabolic encephalopathy: significantly improved; however, lacks capacity at this moment as she minimizes illness and is not able to demonstrate understanding of consequences of medical issues -serotonin syndrome versus acute alcohol withdrawal vs symptomatic hyponatremia -Consider this unlikely to represent viral encephalitis, minimal elevation of protein and DNA PCR's negative -Given significant rapid improvement will d/c acyclovir -Phenobarbital protocol for presumptive alcohol withdrawal: continue with oral phenobarbitol -Daily thiamine and multivitamin Substance abuse -Marijuana positive CV: Tachycardia: resolved Fluids/Renal: Hyponatremia: improved - regular diet Hypokalemia - 40 mg Kdur BID today ID: Fever with leukocytosis - blood cultures and CSF culture remains negative, CSF bio fire negative, minimally elevated protein, UA unremarkable for infectious process - Received ceftriaxone, doxycycline, vancomycin in emergency department -Discontinue acyclovir given rapid improvement and increase in creatinine GI/Nutrition: Regular diet Transaminitis -Hepatitis panel: pending - This was previously negative in 2019 Heme: Leukocytosis -Unclear significance DVT prophylaxis: Heparin 5000 twice daily to minimize risk if she needs subsequent lumbar puncture Endocrine: ICU hyperglycemia protocol Vascular access: Peripheral IVs Code Status: Full code Disposition: Stable for downgrade (2) Agitation: (3) Hyponatremia: Admission and Anticipated Discharge Date Admission Date: November 12, 2021 Subjective Patient appropriately alert and oriented however does not exhibit full insight into underlying disease process. She is not able to communicate/teach back what would happen if her sodium continues to be abnormal, reports that her sodium is not an issue. Minimizes alcohol consumption reports that she is a heavy beer drinker reporting typically 6 drinks a day however has never reported withdrawals. Denies any knowledge of previous days events. Desires to be discharged home. Advised her we will continue to monitor her sodium, and reassess her as she improves. Review of Systems Review of Systems: Denies any and all complaints Physical Exam Physical Exam: General: Alert. nontoxic. Skin: Warm, dry, Head: Atraumatic Ears, nose, mouth and throat: airway patent Cardiovascular: Normal peripheral perfusion Respiratory: no respiratory distress Gastrointestinal: Non distended Musculoskeletal: No deformity Results & Data Results & Data ([facility]) Vital Signs (Past 12 Hours) Vital Signs Temp Pulse Resp BP Pulse Ox 11/14/21 06:00 83 20 92/58 L 92 11/14/21 05:00 82 18 90/55 L 96 11/14/21 04:00 83 18 99/76 L 93 11/14/21 03:00 91 H 16 127/95 93 11/14/21 02:01 91 H 11 L 129/88 98 11/14/21 02:00 90 7 L 96 11/14/21 01:00 79 18 115/80 95 11/14/21 00:00 36.8 C 79 16 96/76 L 94 Critical Care Results & Data Vital Signs (Past 12 Hours) Vital Signs Temp Pulse Resp BP Pulse Ox 11/14/21 06:00 83 20 92/58 L 92 11/14/21 05:00 82 18 90/55 L 96 11/14/21 04:00 83 18 99/76 L 93 11/14/21 03:00 91 H 16 127/95 93 11/14/21 02:01 91 H 11 L 129/88 98 11/14/21 02:00 90 7 L 96 11/14/21 01:00 79 18 115/80 95 11/14/21 00:00 36.8 C 79 16 96/76 L 94 Lab & Micro Results (Past 24 Hours) RBC 3.65 M/uL (4.2-5.4) L 11/14/21 WBC 17.23 K/uL (4.8-10.8) H 11/14/21 Hgb 11.8 g/dL (12.0-16.0) L 11/14/21 Hct 31.3 % (37-47) L 11/14/21 MCV 85.8 fL (80-100) 11/14/21 MCH 32.3 pg (25-34) 11/14/21 MCHC 37.7 g/dL (32-36) H 11/14/21 RDW Standard Deviation 38.9 fL (36.4-46.3) 11/14/21 RDW Coefficient of Variation 12.4 % (11.5-14.5) 11/14/21 Plt Count 360 K/uL (130-400) 11/14/21 MPV 9.1 fL (7.4-10.4) 11/14/21 Neutrophils (%) (Auto) 82.8 % 11/14/21 Lymphocytes (%) (Auto) 8.6 % 11/14/21 Monocytes # (Auto) 1.37 K/uL (0.11-0.59) H 11/14/21 Eosinophils # (Auto) 0.02 K/uL (0-0.5) 11/14/21 Immature Granulocyte % (Auto) 0.3 % 11/14/21 Neutrophils # (Auto) 14.27 K/uL (1.4-6.5) H 11/14/21 Lymphocytes # (Auto) 1.49 K/uL (1.2-3.4) 11/14/21 Monocytes # (Auto) 1.37 K/uL (0.11-0.59) H 11/14/21 Eosinophils # (Auto) 0.02 K/uL (0-0.5) 11/14/21 Basophils # (Auto) 0.03 K/uL (0-0.2) 11/14/21 Immature Granulocyte # (Auto) 0.05 K/uL (0.00-0.02) H 11/14/21 Na 126 mmol/L (136-145) L 11/14/21 K 3.4 mmol/L (3.5-5.1) L 11/14/21 Cl 95 mmol/L (98-107) L 11/14/21 CO2 22 mmol/L (21-32) 11/14/21 Anion Gap 9 (3-11) 11/14/21 BUN 6 mg/dl (6-23) 11/14/21 Creatinine 0.79 mg/dl (0.6-1.2) 11/14/21 Estimated GFR ( Amer) 95.6 ml/min 11/14/21 Estimated GFR (Non-Af Amer) 82.5 ml/min 11/14/21 BUN/Creatinine Ratio 7.6 (10-20) L 11/14/21 Glu 89 mg/dl (70-99(Fasting)) 11/14/21 Ca 7.5 mg/dl (8.5-10.1) L 11/14/21 Phosphorus Level 4.8 mg/dl (2.5-4.9) 11/14/21 Mg 1.9 mg/dl (1.7-2.4) 11/14/21 06:41 11/14/21 Calcium Level 7.5 mg/dl (8.5-10.1) L 11/14/21 06:41 11/14/21 Microbiology 11/12/21 19:29 Gram Stain - Final Cerebral Spinal Fluid CSF Culture - Final No growth 11/12/21 16:42 Aerobic Blood Culture - Preliminary Blood No growth in Aerobic bottle after 24 hours. Anaerobic Blood Culture - Final 11/12/21 16:37 Aerobic Blood Culture - Preliminary Blood No growth in Aerobic bottle after 24 hours. Anaerobic Blood Culture - Preliminary No growth in Anaerobic bottle after 24 hours. I & O Totals 24 Hours 11/13/21 11/14/21 11/15/21 06:59 06:59 06:59 Intake Total 3882.866 / 3882.866 2255.0 / 2255.0 881.5 / 881.5 Output Total 4500 / 4500 1725 / 1725 Balance -617.134 / -617.134 530.0 / 530.0 881.5 / 881.5 Cumulative 11/12/21 14:19 thru 11/14/21 10:17 Intake Total 7019.366 Output Total 6225 Balance 794.366 RT Ventilator Mngmt (Last Documented) Ventilator Ordered Settings Respiratory Rate 20 11/14/21 0 6:00 Ventilator - PT Measurements Respiratory Rate 20 End-Tidal CO2 21 Coding Level of Care Code 09942 Subseq Hosp Care Lvl 3 Diagnoses Acute metabolic encephalopathy G93.41 Agitation R45.1 Hyponatremia E87.1
[2021-11-14 11:54] LABS: Calcium 7.7 mg/dl (8.5-10.1); Creatinine Clr Calc Pharmacy 50.5 ml/min; Est GFR (African American) 50.9 ml/min; Potassium 3.3 mmol/L (3.5-5.1)
[2021-11-14] MEDS: NICOTINE 21 MG/24 HR TDSY TD SCH (11:55)
[2021-11-14] MEDS: POTASSIUM CHLORIDE CRTAB 20 MEQ TABCR PO SCH ×2 (13:41→20:29)
--- NOTE | 2021-11-14 14:57 | Hospitalist Progress Note ---
Date of Service November 14, 2021 Assessment & Plan (1) Acute metabolic encephalopathy: Plan: Patient is admitted with confusion. Likely serotonin syndrome vs alcohol withdrawal vs hyponatremia. Patient empirically treated for aseptic meningitis with acyclovir. No fevers. will stop acyclovir. Patient on phenobarbital taper. Hyponatremia may be driving factor with her symptoms. Patient is also at risk of serotonin syndrome, Patient received vanco and ceftriaxone in ED. will hold further vanco. If this is serotonin syndrome, conservative management, as long as vitals remain stable. will recheck CK in AM. electrolytes. will hold SNRI and psych meds for now. In regards to her sodium, received in ER 3% hypertonic saline.]will recheck, goal would be 121 within first 24 hours. Sodium levels have been maintained at 125 which is where it should be on day 2. electrolytes have been replaced. will continue to monitor her sodium. will transfer patient out of the ICU. Found trying to break into another person's apartment in her apartment building. Ivonne has long history of alcoholism. Patient also takes venlafaxine. Patient found to be tachycardic, feverish. Initially concern over infection, however procal and inflammatory markers are negative. Except for CRP being elevated. Doubt infection. LP essentially negative except for elevated protein. (2) Hyponatremia: Plan: received hypertonic saline as stated above. sodium currently 125. ordered desmopressin new goal for tomorrow below 131. (3) Alcoholism: Plan: will order AWSS. (4) Dyslipidemia: Plan: hold off meds will consider restarting in AM of 11/15 (5) Depression: Plan: hold off meds will consult psych to help reinitiate her medications Admission and Anticipated Discharge Date Admission Date: November 12, 2021 Subjective Patient is awake, and is able to have conversations. Patient does not recall why she is in the hospital. She is asking for a diet. She wants to ambulate the halls. She continues to require a 1 to 1. Review of Systems Review of Systems: All systems reviewed & are unremarkable except as noted in HPI & below Physical Exam Constitutional: well developed (no longer appears intovxicating) Eyes: PERRL, conjunctivae normal, anicteric sclerae ENMT: external ear and nose normal, oropharynx normal Neck: trachea midline, no thyromegaly Respiratory: normal respiratory effort, lungs clear to auscultation Cardiovascular: RRR, no murmur, no edema Gastrointestinal (Abdomen): normal bowel sounds, soft, nontender, no hepatosplenomegaly Musculoskeletal: Head/Neck/Chest: + head abnormal to inspection Skin: no rashes, warm and dry Lymphatic: no cervical or axillary lymphadenopathy Results & Data Results & Data ([facility]) Vital Signs (Past 12 Hours) Vital Signs Pulse Resp BP Pulse Ox 11/14/21 12:01 89 20 105/71 94 11/14/21 12:00 90 18 94 11/14/21 11:00 89 19 129/74 93 11/14/21 10:00 103 H 15 129/84 98 11/14/21 09:00 99 H 0 L 143/104 H 98 11/14/21 08:00 98 H 0 L 131/88 11/14/21 07:00 95 H 11 L 114/68 96 11/14/21 06:00 83 20 92/58 L 92 11/14/21 05:00 82 18 90/55 L 96 11/14/21 04:00 83 18 99/76 L 93 11/14/21 03:00 91 H 16 127/95 93 PG Care Time/CCT Total # of Minutes Spent Total Time Spent with Patient: Total time spent is greater than 50% in coordination of care (as documented) at patient's floor/unit and/or counseling patient: Coding Level of Care Code 86024 Subseq Hosp Care Lvl 3 Diagnoses Acute metabolic encephalopathy G93.41 Hyponatremia E87.1 Alcoholism F10.20 Dyslipidemia E78.5 Depression F32.9
[2021-11-15] MEDS: ACETAMINOPHEN 1000 MG/100 ML IV IV PRN ×2 (05:07→23:52)
[2021-11-15] MEDS: LOSARTAN POTASSIUM 50 MG TAB PO SCH ×2 (08:13→20:11)
[2021-11-15] MEDS: PANTOprazole 40 MG TAB PO SCH (08:13)
[2021-11-15] MEDS: NICOTINE 21 MG/24 HR TDSY TD SCH (08:13)
[2021-11-15] MEDS: HEPARIN SOD 5,000 UNIT/0.5 ML VIAL SQ SCH ×2 (08:14→20:12)
[2021-11-15] MEDS: PHENobarbitaL 30 MG TAB PO SCH ×2 (08:17→21:38)
[2021-11-15 08:37] LABS: Basophils # (auto) 0.02 K/uL (0-0.2); Basophils % (auto) 0.2 %; Eosinophils # (auto) 0.02 K/uL (0-0.5); Eosinophils % (auto) 0.2 %; Hematocrit (blood only) 31.6 % (37-47); Hemoglobin 11.3 g/dL (12.0-16.0); Immature Granulocytes # (auto) 0.03 K/uL (0.00-0.02); Immature Granulocytes % (auto) 0.3 %; Lymphocytes # (auto) 0.93 K/uL (1.2-3.4); Lymphocytes % (auto) 9.2 %; Mean Corpuscular Hemoglobin 30.7 pg (25-34); Mean Corpuscular Hgb Conc 35.8 g/dL (32-36); Mean Corpuscular Volume 85.9 fL (80-100); Mean Platelet Volume 9.3 fL (7.4-10.4); Monocytes # (auto) 1.05 K/uL (0.11-0.59); Monocytes % (auto) 10.4 %; Neutrophils # (auto) 8.06 K/uL (1.4-6.5); Neutrophils % (auto) 79.7 %; Platelet Count 349 K/uL (130-400); RDW Coefficient of Variation 12.5 % (11.5-14.5); RDW Standard Deviation 39.7 fL (36.4-46.3); Red Blood Count 3.68 M/uL (4.2-5.4); White Blood Count 10.11 K/uL (4.8-10.8)
[2021-11-15 09:11] LABS: BUN Creatinine Ratio 8.6 (10-20); Calcium 8.2 mg/dl (8.5-10.1); Creatinine Clr Calc Pharmacy 44.5 ml/min; Est GFR (African American) 43.7 ml/min; Est GFR (Non-African American) 37.7 ml/min; Magnesium 1.9 mg/dl (1.7-2.4); Phosphorus 2.6 mg/dl (2.5-4.9); Potassium 3.7 mmol/L (3.5-5.1)
--- NOTE | 2021-11-15 09:45 | Nephrology Progress Note ---
Date of Service November 15, 2021 Assessment & Plan (1) Altered mental status: Plan: Secondary to severe hyponatremia. Improved. Plan of care reviewed with Dr. Yancey this AM. Geri relates a history of alcoholism since age 11. She is interested in resources and help staying sober post discharge. Continue thiamine and folic acid supplementation. (2) Acute hyponatremia: Plan: Improving appropriately at this time. Repeat labs ordered for this afternoon. Maintain fluid restriction for now. Encourage dietary protein intake. (3) Hypokalemia: Plan: KCl 20 mEq provided this AM. Repeat this afternoon. (4) Hypomagnesemia: Plan: Repeat level this afternoon, replacement as needed. (5) Hypophosphatemia: Plan: Encourage nutrition. Repeat labs this afternoon. (6) Hypocalcemia: (7) Vitamin D deficiency: Plan: PO replacement. Admission and Anticipated Discharge Date Admission Date: November 12, 2021 Subjective No acute events overnight. Reports some pain in the right side of her jaw this AM. TMJ discomfort and difficulty opening her mouth completely. No similar symptoms in the past. Tenderness to touch. Emotional. Reports good appetite. Review of Systems Review of Systems: All systems reviewed & are unremarkable except as noted in HPI & below Physical Exam Constitutional: well developed; no acute distress Eyes: no scleral abnormality and no corneal abnormality ENMT: Mouth: no oral mucosal abnormality and oral mucous membranes not dry Neck: normal visual inspection and trachea midline Respiratory: normal respiratory effort Auscultation: lungs clear to auscultation bilaterally Cardiovascular: Rate/Rhythm: regular rate Heart Sounds: normal S1 and normal S2 Extremities: no edema Musculoskeletal: Extremities: no cyanosis and no clubbing Skin: normal turgor; no lesions Neurologic: Motor/Sensory: no tremor and no asterixis Psychiatric: Orientation: alert and oriented x 3 Results & Data ([facility]) Vital Signs (Past 12 Hours) Vital Signs Temp Pulse Resp BP Pulse Ox 11/15/21 07:15 36.8 C 73 20 113/74 98 11/14/21 22:01 37.0 C 83 20 130/82 96 Laboratory Results Laboratory Results - last 24 hr 11/14/21 11/14/21 11/15/21 11:15 15:12 07:41 WBC 10.11 RBC 3.68 L Hgb 11.3 L Hct 31.6 L MCV 85.9 MCH 30.7 MCHC 35.8 RDW Std Deviation 39.7 RDW Coeff of Roger 12.5 Plt Count 349 MPV 9.3 Immature Gran % (Auto) 0.3 Neut % (Auto) 79.7 Lymph % (Auto) 9.2 [place] % (Auto) 10.4 Eos % (Auto) 0.2 Baso % (Auto) 0.2 Neut # (Auto) 8.06 H Lymph # (Auto) 0.[address] [place] # (Auto) 1.05 H Eos # (Auto) 0.02 Baso # (Auto) 0.02 Immature Gran # (Auto) 0.03 H Sodium 122 L 122 L Potassium 3.3 L Chloride 92 L Carbon Dioxide 21 Anion Gap 9 BUN 8 Creatinine 1.33 H D Est Cr Clr Drug Dosing 50.5 Est GFR ( Amer) 50.9 Est GFR (Non-Af Amer) 44.0 BUN/Creatinine Ratio 6.0 L Glucose 104 H Calcium 7.7 L Phosphorus Magnesium 11/15/21 07:41 WBC RBC Hgb Hct MCV MCH MCHC RDW Std Deviation RDW Coeff of Roger Plt Count MPV Immature Gran % (Auto) Neut % (Auto) Lymph % (Auto) [place] % (Auto) Eos % (Auto) Baso % (Auto) Neut # (Auto) Lymph # (Auto) [place] # (Auto) Eos # (Auto) Baso # (Auto) Immature Gran # (Auto) Sodium 126 L Potassium 3.7 Chloride 96 L Carbon Dioxide 23 Anion Gap 7 BUN 13 Creatinine 1.51 H Est Cr Clr Drug Dosing 44.5 Est GFR ( Amer) 43.7 Est GFR (Non-Af Amer) 37.7 BUN/Creatinine Ratio 8.6 L Glucose 116 H Calcium 8.2 L Phosphorus 2.6 D Magnesium 1.9 PG Care Time/CCT Total # of Minutes Spent Total Time Spent with Patient: Total time spent is greater than 50% in coordination of care (as documented) at patient's floor/unit and/or counseling patient: Coding Level of Care Code 59773 Subseq Hosp Care Lvl 3 Diagnoses Altered mental status R40.0 Altered mental status type: somnolence Acute hyponatremia E87.1 Hypokalemia E87.6 Hypomagnesemia E83.42 Hypophosphatemia E83.39 Hypocalcemia E83.51 Vitamin D deficiency E55.9 (1) Altered mental status Altered mental status type: somnolence Qualified Code(s): R40.0 - Somnolence
[2021-11-15] MEDS ORDERED: POTASSIUM CHLORIDE CRTAB 20 MEQ TABCR PO STA (09:49)
[2021-11-15] MEDS: THIAMINE HCL 100 MG TAB PO SCH (10:49)
[2021-11-15] MEDS: FOLIC ACID 1 MG TAB PO SCH (10:49)
--- NOTE | 2021-11-15 11:12 | Psychiatric Consultation ---
Date of Consultation November 15, 2021 Impression / Recommendations Impression 56 yo female admit with AMS, presumably acute ETOH abuse/intoxication syndrome with possible paradoxical activation by co-admin with psych meds/benzodiazepines though denies using anything but Xana in past few weeks. She was not particularly cooperative with assessment but there is no evidence of psychosis or rey interfering with her medical decision making at this point. She does need redirected at times and I assume is having some residual confusion (mild) due to hyponatremia. Doubt the latter is due to her psych meds and no evidence of psychogenic polydipsia. (1) Altered mental status: Altered mental status type: somnolence Qualified Code(s): R40.0 - Somnolence (2) Acute hyponatremia: (3) Alcohol abuse: (4) Benzodiazepine dependence: AW protocol, currently on phenobarb, would cover seizure but not fully for benzodiazepine withdrawal so monitor as if was taking Xanax 1 mg QID would have significant withdrawal. She is refusing rehab but did sign a release for [facility] she is refusing to return to [facility] I would not restart any of her psych meds as discharge except for a longer acting benzo for withdrawal while hospitalized, likely to drink in combo outside of the hospital liaison to follow if changes her mind on involvement of our service/agrees to a ftercare. Risk Factors Assessment Do You Have Access To A Gun?: No Psych History Identifying Data 56 yo female from [facility] brought in by police found trying to break into another person's apartment. Consult is by hospitalist service for Etoh intoxication, recs for psych meds. Chief Complaint "If you are a psychiatrist you can just leave". History of Present Illness Patient wasn't particularly cooperative with assessment as she stated she is no longer interested in psych meds. She states that she hasn't taken "all 5 of them", referring to venlafaxine, temazepam, trazodone, alprazolam, and ziprasidone for weeks. When questioned re: meds being filled 10/15 she said she flushed them all down the toilet except for Xanax. Per prescription hx in PDMP it does appear that she has been taking Xanax 1 mg QID for approximately 1 year as gets 120 pills each month. She states "this is all because of that Xanax which doesn't do anything for me anyway" and reviewed risk of combining with ETOH. She denies thoughts to harm herself or others. She was tearful when talking with liaison about circumstances of admission as "not like me". She is seemingly unaware of her arrest warrant. She continues to minimize her hx of EToh use, at one point admitted to up to 20 beers a day in addition to her Xanax rx, now denies this. She reports she is not interested in restarting her psychiatric medications. Reviewed they were held here anyway due to her hyponatremia and AMS. She scored a 3 on the pHQ-9 with o on #9. She denies psychogenic polydipsia. She denies sin. She was unsure of her psychiatric diagnosis and asked to end the interview as "I don't want anything anyway." Past Psychiatric History Previous Psych History: Telehealth via [facility]: no therapist Previous Psych Admissions: denied Do You Have Access To A Gun?: No History of Previous Suicide Attempt: No Past Medication Trials: reports only current meds Allergies Allergy/AdvReac Type Severity Reaction Status Date / Time capsaicin Allergy Mild DIARRHEA Unverified 10/08/21 14:47 diclofenac Allergy Mild DIARRHEA Unverified 10/08/21 14:47 ciprofloxacin Allergy Unknown ITCHING Verified 10/08/21 14:47 metronidazole Allergy Unknown ITCHING Verified 10/08/21 14:47 Gabapentin CAPS AdvReac Intermediate edema Uncoded 10/08/21 14:47 Home Medications Medication Instructions Recorded Confirmed Type temazepam 30 mg capsule 30 mg PO HS cap 03/07/19 10/08/21 History venlafaxine 75 mg capsule,extended 75 mg PO DAILY cap 03/07/19 10/08/21 History release 24 hr triamcinolone acetonide 0.1 % 1 appln TOP BID #80 gm 06/04/19 10/08/21 Rx topical cream trazodone 100 mg tablet 100 mg PO HS tab 04/07/20 10/08/21 History cholecalciferol (vitamin D3) 50 2,000 unit PO DAILY #90 cap 04/22/20 10/08/21 Rx mcg (2,000 unit) capsule alprazolam 1 mg tablet See Rx Instructions .ROUTE 11/12/20 10/08/21 History .COMPLEX PRN tab ziprasidone HCl 40 mg capsule 40 mg PO DAILY cap 11/12/20 10/08/21 History light mineral oil 1 %-mineral oil drp OPHTHALMIC (EYE) PRN 05/24/21 10/08/21 History 4.5 % eye drops (Soothe XP) amlodipine 5 mg tablet 5 mg PO DAILY #90 tab 06/07/21 10/08/21 Rx docusate sodium 100 mg capsule 100 mg PO TID #180 cap 07/27/21 10/08/21 Rx (Colace) atorvastatin 20 mg tablet 20 mg PO DAILY #90 tab 08/13/21 10/08/21 Rx losartan 50 mg tablet 50 mg PO BID #180 tab 08/18/21 10/08/21 Rx colchicine 0.6 mg capsule See Rx Instructions .ROUTE 10/08/21 10/08/21 Rx .COMPLEX #3 cap diclofenac sodium 75 mg 75 mg PO BID #180 tab 10/13/21 Rx tablet,delayed release fluocinonide 0.05 % topical cream 1 applic TOP BID #60 gm 10/13/21 Rx fluticasone propionate 50 2 spray INTNAS DAILY #15.8 ml 10/13/21 Rx mcg/actuation nasal spray,suspension (Flonase Allergy Relief) loratadine 10 mg tablet (Claritin) 10 mg PO DAILY #90 tab 10/13/21 Rx pantoprazole 40 mg tablet,delayed 40 mg PO DAILY #90 tab 10/13/21 Rx release potassium chloride 20 mEq See Rx Instructions .ROUTE 10/13/21 Rx tablet,extended release(part/cryst) .COMPLEX #270 tab Family History denies Substance Abuse History reports last use 11/12/21 so perhaps more in the context of withdrawal? Personal History Beliefs That Will Affect Care: None Patient History Medical History Acid reflux Alcoholism Anxiety Arthritis Benign essential hypertension Cervical disc disease Depression Dermatitis Dyslipidemia Fatty liver Hypocalcemia Hypophosphatemia Lumbar disc disease Lumbar spinal stenosis Microscopic colitis Mood disorder Pulmonary nodule Pulmonary nodules Vitamin D deficiency Surgical History H/O sinus surgery H/O tubal ligation History of back surgery History of tonsillectomy Hx of unilateral salpingectomy d/t ectopic Family History Father Colitis Hypertension Mother Hypertension Grandfather (Paternal) Myocardial infarction Coronary heart disease Sister Hypertension Denies family history of Ovarian cancer Prostate cancer Breast cancer Colorectal cancer Social History Smoking Status: Unknown if ever smoked Tobacco Type: Cigarettes packs per day: 1; Cigarettes Per Day: 20; Second Hand Exposure: No; Hx Alcohol Use: Yes Alcohol Intake Frequency: 4 or More x per/Week Hx Substance Use: No Preferred Language: Slovenian Communication Ability: Effective Visual Impairment: No Limitations Hearing Ability: Normal Pharmacist Required: No Beliefs That Will Affect Care: None marital status: Single Current Living Situation: Alone Current Living Situation Comment: with help available current occupational status: disabled Feels Safe at Home: Yes Childhood Exposure to Second-Hand Smoke: No caffeine: Yes during the past year weight has: decreased > 10 lbs Dental Care, Regularly: Yes Physical Activity Frequency: 3-4 Times per Week Physical Activity Frequency Comment: due to physical condition Seatbelt Use: always Sunscreen Use: No Physical Exam Psychiatric: Orientation: alert, oriented to person and oriented to place Apperance: + disheveled Eye Contact: + fair eye contact Motor Behavior: no abnormal motor movements Speech: normal rate/rhythm/volume of speech Affect: euthymic affect Mood: + irritable mood Thought Process: + concrete thought process Thought Content: reality based without delusions Suicidal Thoughts: denies suicidal thoughts Homicidal Thoughts: denies homicidal thoughts Hallucinations: no auditory hallucinations and no visual hallucinations Cognition: language grossly intact; + attention not intact Estimated Intelligence: consistent with education level Insight: + limited insight Judgement: + limited judgement Vital Signs (Past 24 Hours): Last Vital Signs Temp 36.8 C 11/15/21 07:15 Pulse 73 11/15/21 07:15 Resp 20 11/15/21 07:15 BP 113/74 11/15/21 07:15 Pulse Ox 98 11/15/21 07:15 Review of Systems All systems reviewed & are unremarkable except as noted in HPI & below Results & Data (PSY) Laboratory Results 11/15/21 11/15/21 11/14/21 Range/Units 07:41 07:41 15:12 WBC 10.11 (4.8-10.8) K/uL RBC 3.68 L (4.2-5.4) M/uL Hgb 11.3 L (12.0-16.0) g/dL Hct 31.6 L (37-47) % MCV 85.9 (80-100) fL MCH 30.7 (25-34) pg MCHC 35.8 (32-36) g/dL RDW Std Deviation 39.7 (36.4-46.3) fL RDW Coeff of Roger 12.5 (11.5-14.5) % Plt Count 349 (130-400) K/uL MPV 9.3 (7.4-10.4) fL Immature Gran % (Auto) 0.3 % Neut % (Auto) 79.7 % Lymph % (Auto) 9.2 % [place] % (Auto) 10.4 % Eos % (Auto) 0.2 % Baso % (Auto) 0.2 % Neut # (Auto) 8.06 H (1.4-6.5) K/uL Lymph # (Auto) 0.93 L (1.2-3.4) K/uL [place] # (Auto) 1.05 H (0.11-0.59) K/uL Eos # (Auto) 0.02 (0-0.5) K/uL Baso # (Auto) 0.02 (0-0.2) K/uL Immature Gran # (Auto) 0.03 H (0.00-0.02) K/uL Sodium 126 L 122 L (136-145) mmol/L Potassium 3.7 (3.5-5.1) mmol/L Chloride 96 L (98-107) mmol/L Carbon Dioxide 23 (21-32) mmol/L Anion Gap 7 (3-11) BUN 13 (6-23) mg/dl Creatinine 1.51 H (0.6-1.2) mg/dl Est Cr Clr Drug Dosing 44.5 ml/min Est GFR ( Amer) 43.7 ml/min Est GFR (Non-Af Amer) 37.7 ml/min BUN/Creatinine Ratio 8.6 L (10-20) Glucose 116 H (70-99(Fasting)) mg/dl Calcium 8.2 L (8.5-10.1) mg/dl Phosphorus 2.6 D (2.5-4.9) mg/dl Magnesium 1.9 (1.7-2.4) mg/dl 11/14/21 Range/Units 11:15 WBC (4.8-10.8) K/uL RBC (4.2-5.4) M/uL Hgb (12.0-16.0) g/dL Hct (37-47) % MCV (80-100) fL MCH (25-34) pg MCHC (32-36) g/dL RDW Std Deviation (36.4-46.3) fL RDW Coeff of Roger (11.5-14.5) % Plt Count (130-400) K/uL MPV (7.4-10.4) fL Immature Gran % (Auto) % Neut % (Auto) % Lymph % (Auto) % [place] % (Auto) % Eos % (Auto) % Baso % (Auto) % Neut # (Auto) (1.4-6.5) K/uL Lymph # (Auto) (1.2-3.4) K/uL [place] # (Auto) (0.11-0.59) K/uL Eos # (Auto) (0-0.5) K/uL Baso # (Auto) (0-0.2) K/uL Immature Gran # (Auto) (0.00-0.02) K/uL Sodium 122 L (136-145) mmol/L Potassium 3.3 L (3.5-5.1) mmol/L Chloride 92 L (98-107) mmol/L Carbon Dioxide 21 (21-32) mmol/L Anion Gap 9 (3-11) BUN 8 (6-23) mg/dl Creatinine 1.33 H D (0.6-1.2) mg/dl Est Cr Clr Drug Dosing 50.5 ml/min Est GFR ( Amer) 50.9 ml/min Est GFR (Non-Af Amer) 44.0 ml/min BUN/Creatinine Ratio 6.0 L (10-20) Glucose 104 H (70-99(Fasting)) mg/dl Calcium 7.7 L (8.5-10.1) mg/dl Phosphorus (2.5-4.9) mg/dl Magnesium (1.7-2.4) mg/dl Medications Administered Acetaminophen (Acetaminophen 1000 Mg/100 Ml Iv) 1,000 mg IV Q8H PRN PRN Reason: fever/pain Stop: 11/16/21 02:07 Last Admin: 11/15/21 05:07 Dose: 1,000 mg Documented by: [id number] Admin: 11/13/21 03:08 Dose: 1,000 mg Documented by: [id number] Folic Acid (Folic Acid 1 Mg Tab) 1 mg PO QAM [facility] Stop: 12/15/21 09:59 Last Admin: 11/15/21 10:49 Dose: 1 mg Documented by: [id number] Heparin Sodium (Porcine) (Heparin Sod 5,000 Unit/0.5 Ml Vial) 5,000 units SQ Q12 [facility] Stop: 12/13/21 20:59 Last Admin: 11/15/21 08:14 Dose: 5,000 units Documented by: [id number] Admin: 11/14/21 20:32 Dose: 5,000 units Documented by: [id number] Admin: 11/14/21 08:34 Dose: 5,000 units Documented by: [id number] Admin: 11/13/21 21:29 Dose: 5,000 units Documented by: [id number] Losartan Potassium (Losartan Potassium 50 Mg Tab) 50 mg PO BID [facility] Stop: 12/12/21 20:59 Last Admin: 11/15/21 08:13 Dose: 50 mg Documented by: [id number] Admin: 11/14/21 20:29 Dose: 50 mg Documented by: [id number] Admin: 11/14/21 08:28 Dose: 50 mg Documented by: [id number] Admin: 11/13/21 21:29 Dose: 50 mg Documented by: [id number] Admin: 11/13/21 08:39 Dose: Not Given Documented by: [id number] Admin: 11/12/21 22:01 Dose: Not Given Documented by: [id number] Miscellaneous (Remove Nicoderm Patch) 1 ea N/A DAILY@[id number] [facility] Stop: 12/15/21 08:58 Last Admin: 11/15/21 08:14 Dose: 1 ea Documented by: [id number] Nicotine (Nicotine 21 Mg/24 Hr Tdsy) 21 mg TD QAM [facility] Stop: 12/14/21 10:59 Last Admin: 11/15/21 08:13 Dose: 21 mg Documented by: [id number] Admin: 11/14/21 11:55 Dose: 21 mg Documented by: [id number] Pantoprazole Sodium (Pantoprazole 40 Mg Tab) 40 mg PO DAILY MARCOS Stop: 12/13/21 08:59 Last Admin: 11/15/21 08:13 Dose: 40 mg Documented by: [id number] Admin: 11/14/21 08:28 Dose: 40 mg Documented by: [id number] Admin: 11/13/21 08:40 Dose: Not Given Documented by: [id number] Phenobarbital (Phenobarbital 30 Mg Tab) 30 mg PO BID MARCOS Stop: 11/15/21 21:01 Last Admin: 11/15/21 08:17 Dose: 30 mg Documented by: [id number] Thiamine HCl (Thiamine Hcl 100 Mg Tab) 100 mg PO QAM MARCOS Stop: 12/15/21 09:59 Last Admin: 11/15/21 10:49 Dose: 100 mg Documented by: [id number] Coding Level of Care Code [address] [facility] Int Hosp Care Lvl 2 Diagnoses Altered mental status R40.0 Altered mental status type: somnolence Acute hyponatremia E87.1 Alcohol abuse F10.10 Benzodiazepine dependence F13.20
--- NOTE | 2021-11-15 13:48 | Hospitalist Progress Note ---
Date of Service November 15, 2021 Assessment & Plan (1) Acute metabolic encephalopathy: Plan: Patient is admitted with confusion. Likely serotonin syndrome vs alcohol withdrawal vs hyponatremia. Patient empirically treated for aseptic meningitis with acyclovir. No fevers. will stop acyclovir. Patient on phenobarbital taper. Hyponatremia may be driving factor with her symptoms. Patient is also at risk of serotonin syndrome, Patient received vanco and ceftriaxone in ED. will hold further vanco. If this is serotonin syndrome, conservative management, as long as vitals remain stable. will recheck CK in AM. electrolytes. will hold SNRI and psych meds for now. In regards to her sodium, received in ER 3% hypertonic saline.]will recheck, goal would be 121 within first 24 hours. Sodium levels have increased to 128. electrolytes have been replaced. will continue to monitor her sodium. Appreciate input from Nephro. Creatinine has worsened.Patient no longer tachycardic. Found trying to break into another person's apartment in her apartment building. Ivonne has long history of alcoholism. Patient also takes venlafaxine. Patient found to be tachycardic, feverish. Initially concern over infection, however procal and inflammatory markers are negative. Except for CRP being elevated. Doubt infection. LP essentially negative except for elevated protein. (2) Hyponatremia: Plan: received hypertonic saline as stated above. sodium currently 128. Off desmopressin. (3) Alcoholism: Plan: will order AWSS. (4) Dyslipidemia: Plan: hold off meds will consider restarting in AM of 11/15 (5) Depression: Plan: hold off meds will consult psych to help reinitiate her medications Admission and Anticipated Discharge Date Admission Date: November 12, 2021 Subjective Patient is more awake, less confused. Patient states she wants to quit drinking alcohol. Review of Systems Review of Systems: All systems reviewed & are unremarkable except as noted in HPI & below Physical Exam Constitutional: well developed (no longer appears intovxicating) Eyes: PERRL, conjunctivae normal, anicteric sclerae ENMT: external ear and nose normal, oropharynx normal Neck: trachea midline, no thyromegaly Respiratory: normal respiratory effort, lungs clear to auscultation Cardiovascular: RRR, no murmur, no edema Gastrointestinal (Abdomen): normal bowel sounds, soft, nontender, no hepatosplenomegaly Musculoskeletal: Head/Neck/Chest: + head abnormal to inspection Skin: no rashes, warm and dry Lymphatic: no cervical or axillary lymphadenopathy Results & Data Results & Data ([facility]) Vital Signs (Past 12 Hours) Vital Signs Temp Pulse Resp BP Pulse Ox 11/15/21 07:15 36.8 C 73 20 113/74 98 PG Care Time/CCT Total # of Minutes Spent Total Time Spent with Patient: Total time spent is greater than 50% in coordination of care (as documented) at patient's floor/unit and/or counseling patient: Coding Level of Care Code 02820 Subseq Hosp Care Lvl 2 Diagnoses Acute metabolic encephalopathy G93.41 Hyponatremia E87.1 Alcoholism F10.20 Dyslipidemia E78.5 Depression F32.9
[2021-11-15 15:12] LABS: Albumin Level 3.5 gm/dl (3.4-5.0); Calcium 8.3 mg/dl (8.5-10.1); Creatinine Clr Calc Pharmacy 33.6 ml/min; Est GFR (African American) 31.1 ml/min; Est GFR (Non-African American) 26.8 ml/min; Magnesium 1.9 mg/dl (1.7-2.4); Phosphorus 2.8 mg/dl (2.5-4.9); Potassium 4.1 mmol/L (3.5-5.1)
[2021-11-15 16:36] LABS: 7-Aminoclonaz, Confirm NEGATIVE ng/mL (<25); Hydro-Alp Ur, GC/MS NEGATIVE ng/mL (<25); Hydroxyethylflurazepam, Conf NEGATIVE ng/mL (<50); Hydroxymidazolam Ur, GC/MS 70 ng/mL (<50); Hydroxytriazolam NEGATIVE ng/mL (<50); Lorazepam, Ur GC/MS NEGATIVE ng/mL (<50); Marijuana Quant, GCMS Urine 29 ng/mL (<5); Nordiazepam, Confirm NEGATIVE ng/mL (<50); Oxazepam Ur, GC/MS 125 ng/mL (<50); Temazepam, Confirm >2000 ng/mL (<50)
[2021-11-15] MEDS: MELATONIN 3 MG TAB PO PRN (21:38)
[2021-11-16 05:02] LABS: HBSAG NON-REACTIVE (NON-REACTIVE); Hepatitis A Antibody IgM NON-REACTIVE (NON-REACTIVE); Hepatitis B Core Antibody IgM NON-REACTIVE (NON-REACTIVE)
[2021-11-16 07:26] LABS: Hematocrit (blood only) 33.2 % (37-47); Hemoglobin 11.9 g/dL (12.0-16.0); Mean Corpuscular Hemoglobin 31.3 pg (25-34); Mean Corpuscular Hgb Conc 35.8 g/dL (32-36); Mean Corpuscular Volume 87.4 fL (80-100); Mean Platelet Volume 9.6 fL (7.4-10.4); Platelet Count 399 K/uL (130-400); RDW Coefficient of Variation 12.8 % (11.5-14.5); RDW Standard Deviation 41.4 fL (36.4-46.3)
[2021-11-16 07:44] LABS: Albumin Level 3.6 gm/dl (3.4-5.0); BUN Creatinine Ratio 9.9 (10-20); Bilirubin,Total 0.4 mg/dl (0.2-1.0); Creatinine Clr Calc Pharmacy 60.3 ml/min; Est GFR (African American) 63.4 ml/min; Est GFR (Non-African American) 54.7 ml/min; Potassium 3.7 mmol/L (3.5-5.1); Total Protein 6.4 gm/dl (6.0-8.3)
[2021-11-16] MEDS: FOLIC ACID 1 MG TAB PO SCH (08:13)
[2021-11-16] MEDS: HEPARIN SOD 5,000 UNIT/0.5 ML VIAL SQ SCH ×2 (08:13→20:02)
[2021-11-16] MEDS: THIAMINE HCL 100 MG TAB PO SCH (08:13)
[2021-11-16] MEDS: PANTOprazole 40 MG TAB PO SCH (08:14)
[2021-11-16] MEDS: NICOTINE 21 MG/24 HR TDSY TD SCH (08:14)
--- NOTE | 2021-11-16 09:29 | Nephrology Progress Note ---
Date of Service November 16, 2021 Assessment & Plan (1) Altered mental status: Plan: Secondary to severe hyponatremia. Improved. Continue thiamine and folic acid supplementation. Importance of abstaining from alcohol stressed. (2) Acute hyponatremia: Plan: Secondary to photomania. Sodium has improved. Encourage dietary protein intake. (3) Hypokalemia: Plan: Potassium acceptable. Encourage high potassium diet. (4) AMARA (acute kidney injury): Plan: Losartan held. Creatinine improved. Prerenal. No additional evaluation required. Restart low dose losartan PRN. (5) Hypertension: Plan: BP acceptable. Euvolemic. Losartan held. Admission and Anticipated Discharge Date Admission Date: November 12, 2021 Subjective No acute events overnight. Feeling very emotional this AM. No acute complaints. Appetite is good. Denies pain pain. Feeling lonely. Continues to state that she is not interested in rehab. Told me this AM that she does not feel ready to go home due to weakness. Ambulating with a walker in her hospital room. Review of Systems Review of Systems: All systems reviewed & are unremarkable except as noted in HPI & below Physical Exam Constitutional: well developed; no acute distress Eyes: no scleral abnormality and no corneal abnormality ENMT: Mouth: no oral mucosal abnormality and oral mucous membranes not dry Neck: normal visual inspection and trachea midline Respiratory: normal respiratory effort Auscultation: lungs clear to auscultation bilaterally Cardiovascular: Rate/Rhythm: regular rate Heart Sounds: normal S1 and normal S2 Extremities: no edema Musculoskeletal: Extremities: no cyanosis and no clubbing Skin: normal turgor; no lesions Neurologic: Motor/Sensory: no tremor and no asterixis Psychiatric: Orientation: alert and oriented x 3 Results & Data ([facility]) Vital Signs (Past 12 Hours) Vital Signs Temp Pulse Resp BP Pulse Ox 11/16/21 07:45 36.7 C 68 20 146/89 H 98 11/16/21 03:18 37.1 C 69 17 132/78 98 11/15/21 22:20 36.9 C 67 18 116/77 99 Laboratory Results Laboratory Results - last 24 hr 11/12/21 11/13/21 11/15/21 16:30 17:25 14:29 WBC RBC Hgb Hct MCV MCH MCHC RDW Std Deviation RDW Coeff of Roger Plt Count MPV Sodium 128 L Potassium 4.1 Chloride 98 Carbon Dioxide 25 Anion Gap 5 BUN 14 Creatinine 2.00 H D Est Cr Clr Drug Dosing 33.6 Est GFR ( Amer) 31.1 Est GFR (Non-Af Amer) 26.8 BUN/Creatinine Ratio 7.0 L Glucose 114 H Calcium 8.3 L Phosphorus 2.8 Magnesium 1.9 Total Bilirubin Direct Bilirubin AST ALT Alkaline Phosphatase Total Protein Albumin 3.5 U OH-Alprazolam Confrm NEGATIVE 7-Amino Clonazepam NEGATIVE Ur Nordiazepam Confirm NEGATIVE U OH-ethylflurazepam NEGATIVE U Lorazepam Cnf GC/MS NEGATIVE U Oxazepam Confm GC/MS 125 H Ur Temazepam Confirm >2000 H U OH-Triazolam Confirm NEGATIVE U OH-Midazolam Confirm 70 H U Marijuana THC Carboxy 29 H Drug Screen Comment SEE NOTE Hepatitis A IgM Ab NON-REACTIVE Hep Bs Antigen NON-REACTIVE Hep Bs Ag Confirmation TNP Hep B Core IgM Ab NON-REACTIVE Hepatitis C Ab (EIA) NON-REACTIVE Hep C Ab Signal/Cutoff 0.01 11/16/21 11/16/21 06:31 06:31 WBC 7.40 RBC 3.80 L Hgb 11.9 L Hct 33.2 L MCV 87.4 MCH 31.3 MCHC 35.8 RDW Std Deviation 41.4 RDW Coeff of Roger 12.8 Plt Count 399 MPV 9.6 Sodium 134 L Potassium 3.7 Chloride 102 Carbon Dioxide 23 Anion Gap 9 BUN 11 Creatinine 1.11 D Est Cr Clr Drug Dosing 60.3 Est GFR ( Amer) 63.4 Est GFR (Non-Af Amer) 54.7 BUN/Creatinine Ratio 9.9 L Glucose 143 H Calcium 9.0 Phosphorus Magnesium Total Bilirubin 0.4 Direct Bilirubin 0.0 AST 38 ALT 30 Alkaline Phosphatase 76 Total Protein 6.4 Albumin 3.6 U OH-Alprazolam Confrm 7-Amino Clonazepam Ur Nordiazepam Confirm U OH-ethylflurazepam U Lorazepam Cnf GC/MS U Oxazepam Confm GC/MS Ur Temazepam Confirm U OH-Triazolam Confirm U OH-Midazolam Confirm U Marijuana THC Carboxy Drug Screen Comment Hepatitis A IgM Ab Hep Bs Antigen Hep Bs Ag Confirmation Hep B Core IgM Ab Hepatitis C Ab (EIA) Hep C Ab Signal/Cutoff PG Care Time/CCT Total # of Minutes Spent Total Time Spent with Patient: Total time spent is greater than 50% in coordination of care (as documented) at patient's floor/unit and/or counseling patient: Coding Level of Care Code 85300 Subseq Hosp Care Lvl 3 Diagnoses Altered mental status R40.0 Altered mental status type: somnolence Acute hyponatremia E87.1 Hypokalemia E87.6 AMARA (acute kidney injury) N17.9 Hypertension I10 (1) Altered mental status Altered mental status type: somnolence Qualified Code(s): R40.0 - Somnolence
[2021-11-16 11:21] LABS: Babesia microti DNA Not Detected (Not Detected)
[2021-11-16] MEDS: MELATONIN 3 MG TAB PO PRN (20:01)
[2021-11-16] MEDS: ACETAMINOPHEN 325 MG TAB PO PRN (20:01)
[2021-11-16] MEDS ORDERED: PHENobarbitaL 30 MG TAB PO ONE (21:00)
--- NOTE | 2021-11-16 21:23 | Hospitalist Progress Note ---
Date of Service November 16, 2021 Assessment & Plan (1) Acute metabolic encephalopathy: Plan: Patient is admitted with confusion. Likely serotonin syndrome vs alcohol withdrawal vs hyponatremia. Patient empirically treated for aseptic meningitis with acyclovir. No fevers. will stop acyclovir. Patient on phenobarbital taper. Patient remains afebrile on 11/16 Hyponatremia may be driving factor with her symptoms. Patient is also at risk of serotonin syndrome, Patient received vanco and ceftriaxone in ED. will hold further vanco. If this is serotonin syndrome, conservative management, as long as vitals remain stable. will hold SNRI and psych meds for now. In regards to her sodium, received in ER 3% hypertonic saline.]will recheck, goal would be 121 within first 24 hours. Sodium levels have increased to 128. electrolytes have been replaced. will continue to monitor her sodium. Appreciate input from Nephro. Creatinine has worsened.Patient no longer tachycardic. Hyponatremia resolved on 09/16, as well as Acute kidney failure. Found trying to break into another person's apartment in her apartment building. Ivonne has long history of alcoholism. Patient also takes venlafaxine. Patient found to be tachycardic, feverish. Initially concern over infection, however procal and inflammatory markers are negative. Except for CRP being elevated. Doubt infection. LP essentially negative except for elevated protein. (2) Hyponatremia: Plan: received hypertonic saline as stated above. sodium currently 128. Off desmopressin. (3) Alcoholism: Plan: will order AWSS. (4) Dyslipidemia: Plan: hold off meds will consider restarting in AM of 11/15 (5) Depression: Plan: hold off meds will consult psych to help reinitiate her medications Admission and Anticipated Discharge Date Admission Date: November 12, 2021 Subjective Patient reports no new symptoms today. Review of Systems Review of Systems: All systems reviewed & are unremarkable except as noted in HPI & below Physical Exam Constitutional: well developed (no longer appears intovxicating) Eyes: PERRL, conjunctivae normal, anicteric sclerae ENMT: external ear and nose normal, oropharynx normal Neck: trachea midline, no thyromegaly Respiratory: normal respiratory effort, lungs clear to auscultation Cardiovascular: RRR, no murmur, no edema Gastrointestinal (Abdomen): normal bowel sounds, soft, nontender, no hepatosplenomegaly Musculoskeletal: Head/Neck/Chest: + head abnormal to inspection Skin: no rashes, warm and dry Lymphatic: no cervical or axillary lymphadenopathy Results & Data Results & Data ([facility]) Vital Signs (Past 12 Hours) Vital Signs Temp Pulse Resp BP Pulse Ox 11/16/21 14:38 37.0 C 80 20 125/79 98 PG Care Time/CCT Total # of Minutes Spent Total Time Spent with Patient: Total time spent is greater than 50% in coordination of care (as documented) at patient's floor/unit and/or counseling patient: Coding Level of Care Code 83662 Subseq Hosp Care Lvl 2 Diagnoses Acute metabolic encephalopathy G93.41 Hyponatremia E87.1 Alcoholism F10.20 Dyslipidemia E78.5 Depression F32.9
[2021-11-16] MEDS ORDERED: MELATONIN 3 MG TAB PO STA (22:47)
[2021-11-17] MEDS: ACETAMINOPHEN 325 MG TAB PO PRN (05:21)
[2021-11-17 06:04] LABS: Hematocrit (blood only) 35.8 % (37-47); Hemoglobin 12.4 g/dL (12.0-16.0); Mean Corpuscular Hemoglobin 30.2 pg (25-34); Mean Corpuscular Hgb Conc 34.6 g/dL (32-36); Mean Corpuscular Volume 87.3 fL (80-100); Mean Platelet Volume 9.1 fL (7.4-10.4); Platelet Count 445 K/uL (130-400); RDW Coefficient of Variation 13.2 % (11.5-14.5); RDW Standard Deviation 42.4 fL (36.4-46.3); White Blood Count 7.55 K/uL (4.8-10.8)
[2021-11-17 06:36] LABS: BUN Creatinine Ratio 13.8 (10-20); Bilirubin Direct 0.1 mg/dl (0-0.2); Bilirubin,Total 0.4 mg/dl (0.2-1.0); Calcium 9.2 mg/dl (8.5-10.1); Creatinine Clr Calc Pharmacy 83.7 ml/min; Est GFR (African American) 94.2 ml/min; Est GFR (Non-African American) 81.3 ml/min; Potassium 3.5 mmol/L (3.5-5.1); Total Protein 6.8 gm/dl (6.0-8.3)
[2021-11-17] MEDS: NICOTINE 21 MG/24 HR TDSY TD SCH (08:13)
[2021-11-17] MEDS: THIAMINE HCL 100 MG TAB PO SCH (08:14)
[2021-11-17] MEDS: PANTOprazole 40 MG TAB PO SCH (08:14)
[2021-11-17] MEDS: FOLIC ACID 1 MG TAB PO SCH (08:14)
[2021-11-17] MEDS: HEPARIN SOD 5,000 UNIT/0.5 ML VIAL SQ SCH (08:15)
--- NOTE | 2021-11-17 09:49 | Surgery Consultation ---
Date of Consultation November 17, 2021 Assessment & Plan (1) Hemorrhoids: This is a 56yF with a PMH of HTN, HLD, alcoholic abuse, anxiety/depression, mood disorder, who presents to the [facility] ED on 11/12/21 with altered mental status from presumed alcohol use, found to have electrolyte abnormalities. Today surgery was consulted for bleeding hemorrhoids. It appears she had some bleeding overnight into this AM. On exam she has + hemorrhoids without evidence of active bleeding, and scant blood on her depends. Her Hgb/Hct is stable since admission and her Hr and BP are stable. She is not on any blood thinners. She reports a history of these hemorrhoids since she has been 26years old and other than some intermittent bleeding they have not been a problem for her. They are non painful. She tells me that they are not any worse than previously. There is no indication at this time for acute surgical intervention. She may try conservative measures such as stool softeners to help keep BM's soft, eating a diet with fiber, and keeping herself well hydrated. She may try tucks pads and use warm sitz baths +/- epsom salts for symptomatic relief. She does not personally request any surgical intervention on them at this time. Should they become an issue for her or the bleeding is more significant she may follow up with us in the office. We will sign off, please call back with any questions/concerns. Supervising Physician Co-Signing Physician Notes I personally saw and evaluated the patient with Joya Castellano PA-C and agree with the assessment and plan. 56-year-old female with intermittent bleeding from her internal hemorrhoids On exam she does have grade 3 internal hemorrhoids that are not actively bleeding at this moment These are likely too big for bedside banding Her hemoglobin has been stable throughout her hospital stay We will have her follow-up with colorectal surgery as an outpatient for evaluation Please call with any questions or concerns, surgery will sign off at this point History of Present Illness Attending Physician: Salo Yancey History of Present Illness This is a 56yF with a PMH of HTN, HLD, alcoholic abuse, anxiety/depression, mood disorder, who presents to the [facility] ED on 11/12/21 with altered mental status from presumed alcohol use, found to have electrolyte abnormalities. She was admitted under the hospitalist service for management. Today surgery was consulted for bleeding hemorrhoids. Patient tells me her hemorrhoids have been present since she was 26 years old. She says they bleed intermittently on and off, no blood clots noted. She denies taking stool softeners at home. Said they bleed when she gets stressed. She denies any pain associated with them. Says from her point of view they have been stable and not worsening. She does take warm baths at times with relief. Had a colonoscopy in 2019 that revealed internal hemorrhoids. She wears depends at home to keep her underwear clean in the event that bleed some. She does not have a BM everyday, and says lately her BM's have been loose. Allergies Allergy/AdvReac Type Severity Reaction Status Date / Time capsaicin Allergy Mild DIARRHEA Unverified 10/08/21 14:47 diclofenac Allergy Mild DIARRHEA Unverified 10/08/21 14:47 ciprofloxacin Allergy Unknown ITCHING Verified 10/08/21 14:47 metronidazole Allergy Unknown ITCHING Verified 10/08/21 14:47 Gabapentin CAPS AdvReac Intermediate edema Uncoded 10/08/21 14:47 Home Medications Medication Instructions Recorded Confirmed Type temazepam 30 mg capsule 30 mg PO HS cap 03/07/19 10/08/21 History venlafaxine 75 mg capsule,extended 75 mg PO DAILY cap 03/07/19 10/08/21 History release 24 hr triamcinolone acetonide 0.1 % 1 appln TOP BID #80 gm 06/04/19 10/08/21 Rx topical cream trazodone 100 mg tablet 100 mg PO HS tab 04/07/20 10/08/21 History cholecalciferol (vitamin D3) 50 2,000 unit PO DAILY #90 cap 04/22/20 10/08/21 Rx mcg (2,000 unit) capsule alprazolam 1 mg tablet See Rx Instructions .ROUTE 11/12/20 10/08/21 History .COMPLEX PRN tab ziprasidone HCl 40 mg capsule 40 mg PO DAILY cap 11/12/20 10/08/21 History light mineral oil 1 %-mineral oil drp OPHTHALMIC (EYE) PRN 05/24/21 10/08/21 History 4.5 % eye drops (Soothe XP) amlodipine 5 mg tablet 5 mg PO DAILY #90 tab 06/07/21 10/08/21 Rx docusate sodium 100 mg capsule 100 mg PO TID #180 cap 07/27/21 10/08/21 Rx (Colace) atorvastatin 20 mg tablet 20 mg PO DAILY #90 tab 08/13/21 10/08/21 Rx losartan 50 mg tablet 50 mg PO BID #180 tab 08/18/21 10/08/21 Rx colchicine 0.6 mg capsule See Rx Instructions .ROUTE 10/08/21 10/08/21 Rx .COMPLEX #3 cap diclofenac sodium 75 mg 75 mg PO BID #180 tab 10/13/21 Rx tablet,delayed release fluocinonide 0.05 % topical cream 1 applic TOP BID #60 gm 10/13/21 Rx fluticasone propionate 50 2 spray INTNAS DAILY #15.8 ml 10/13/21 Rx mcg/actuation nasal spray,suspension (Flonase Allergy Relief) loratadine 10 mg tablet (Claritin) 10 mg PO DAILY #90 tab 10/13/21 Rx pantoprazole 40 mg tablet,delayed 40 mg PO DAILY #90 tab 10/13/21 Rx release potassium chloride 20 mEq See Rx Instructions .ROUTE 10/13/21 Rx tablet,extended release(part/cryst) .COMPLEX #270 tab Patient History Medical History Acid reflux Alcoholism Anxiety Arthritis Benign essential hypertension Cervical disc disease Depression Dermatitis Dyslipidemia Fatty liver Hypocalcemia Hypophosphatemia Lumbar disc disease Lumbar spinal stenosis Microscopic colitis Mood disorder Pulmonary nodule Pulmonary nodules Vitamin D deficiency Surgical History H/O sinus surgery H/O tubal ligation History of back surgery History of tonsillectomy Hx of unilateral salpingectomy d/t ectopic Family History Father Colitis Hypertension Mother Hypertension Grandfather (Paternal) Myocardial infarction Coronary heart disease Sister Hypertension Denies family history of Ovarian cancer Prostate cancer Breast cancer Colorectal cancer Social History Smoking Status: Unknown if ever smoked Tobacco Type: Cigarettes packs per day: 1; Cigarettes Per Day: 20; Second Hand Exposure: No; Hx Alcohol Use: Yes Alcohol Intake Frequency: 4 or More x per/Week Hx Substance Use: No Preferred Language: Bhutanese Communication Ability: Effective Visual Impairment: No Limitations Hearing Ability: Normal Community Action Worker Required: No Beliefs That Will Affect Care: None marital status: Single Current Living Situation: Alone Current Living Situation Comment: with help available current occupational status: disabled Feels Safe at Home: Yes Childhood Exposure to Second-Hand Smoke: No caffeine: Yes during the past year weight has: decreased > 10 lbs Dental Care, Regularly: Yes Physical Activity Frequency: 3-4 Times per Week Physical Activity Frequency Comment: due to physical condition Seatbelt Use: always Sunscreen Use: No Assistive Devices: Walker Review of Systems Review of Systems: no fevers/chills Respiratory: no dyspnea Gastrointestinal: + hemorrhoids, not painful, intermittently bleed Physical Exam Physical Exam: awake, pleasant and cooperative Respiratory: normal respiratory effort Gastrointestinal (Abdomen): Rectal Exam: + hemorrhoids (no active bleeding, scant bloody drainage on depends, non tender) Results & Data ([facility]) Vital Signs (Past 12 Hours) Vital Signs Temp Pulse Pulse Resp BP BP Pulse Ox 11/17/21 07:39 37.3 C 82 20 171/84 H 97 11/17/21 02:35 97 H 19 153/65 H 97 11/16/21 23:00 37.0 C 79 20 157/115 H 99 PG Care Time/CCT Total # of Minutes Spent Total Time Spent with Patient: Total time spent is greater than 50% in coordination of care (as documented) at patient's floor/unit and/or counseling patient: Coding Level of Care Code 63232 Initial Inpt Care Lvl 3 Diagnoses Hemorrhoids K64.9
[2021-11-17] MEDS ORDERED: POTASSIUM CHLORIDE CRTAB 20 MEQ TABCR PO STA (10:08)
--- NOTE | 2021-11-17 10:08 | Nephrology Progress Note ---
Date of Service November 17, 2021 Assessment & Plan (1) Altered mental status: Plan: Secondary to severe hyponatremia. Improved. (2) Acute hyponatremia: Plan: Secondary to photomania. Sodium has improved. Encourage dietary protein intake. Abstain from alcohol. No additional recommendations at this time. Nephrology will sign-off. Please call with questions or concerns. (3) Hypokalemia: Plan: Encourage high potassium diet. Additional KCl 20 mEq provided this AM. (4) AMARA (acute kidney injury): Plan: Losartan held. Creatinine improved. Prerenal. No additional evaluation required. Restart low dose losartan PRN. (5) Hypertension: Plan: BP acceptable. Euvolemic. Losartan held but restarting a low dose versus a CCB would be considered appropriate as needed. Avoid thiazide diuretics for now. Admission and Anticipated Discharge Date Admission Date: November 12, 2021 Subjective No acute events overnight. Geri was out of bed this AM. She feels well. Review of Systems Review of Systems: All systems reviewed & are unremarkable except as noted in HPI & below Physical Exam Constitutional: well developed; no acute distress Eyes: no scleral abnormality and no corneal abnormality ENMT: Mouth: no oral mucosal abnormality and oral mucous membranes not dry Neck: normal visual inspection and trachea midline Respiratory: normal respiratory effort Auscultation: lungs clear to auscultation bilaterally Cardiovascular: Rate/Rhythm: regular rate Heart Sounds: normal S1 and normal S2 Extremities: no edema Musculoskeletal: Extremities: no cyanosis and no clubbing Skin: normal turgor; no lesions Neurologic: Motor/Sensory: no tremor and no asterixis Psychiatric: Orientation: alert and oriented x 3 Results & Data ([facility]) Vital Signs (Past 12 Hours) Vital Signs Temp Pulse Pulse Resp BP BP Pulse Ox 11/17/21 07:39 37.3 C 82 20 171/84 H 97 11/17/21 02:35 97 H 19 153/65 H 97 11/16/21 23:00 37.0 C 79 20 157/115 H 99 Laboratory Results Laboratory Results - last 24 hr 11/12/21 11/17/21 11/17/21 23:18 05:41 05:41 WBC 7.55 RBC 4.10 L Hgb 12.4 Hct 35.8 L MCV 87.3 MCH 30.2 MCHC 34.6 RDW Std Deviation 42.4 RDW Coeff of Roger 13.2 Plt Count 445 H MPV 9.1 Sodium 135 L Potassium 3.5 Chloride 102 Carbon Dioxide 24 Anion Gap 9 BUN 11 Creatinine 0.80 D Est Cr Clr Drug Dosing 83.7 Est GFR ( Amer) 94.2 Est GFR (Non-Af Amer) 81.3 BUN/Creatinine Ratio 13.8 Glucose 92 Calcium 9.2 Total Bilirubin 0.4 Direct Bilirubin 0.1 AST 27 ALT 29 Alkaline Phosphatase 71 Total Protein 6.8 Albumin 4.0 Babesia microti DNA PCR Not Detected PG Care Time/CCT Total # of Minutes Spent Total Time Spent with Patient: Total time spent is greater than 50% in coordination of care (as documented) at patient's floor/unit and/or counseling patient: Coding Level of Care Code 15285 Subseq Hosp Care Lvl 3 Diagnoses Altered mental status R40.0 Altered mental status type: somnolence Acute hyponatremia E87.1 Hypokalemia E87.6 AMARA (acute kidney injury) N17.9 Hypertension I10 (1) Altered mental status Altered mental status type: somnolence Qualified Code(s): R40.0 - Somnolence
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
== END 2021-11-17 15:59 | disposition home or self-care (01) | DRG 640 ==
LOC: ED 14:31 → 2E 18:05 → 1E 11-13 15:24 → 2W 11-14 15:57

== ENCOUNTER 2022-04-09 14:35 | Inpatient (IN) ==
--- NOTE | 2022-04-09 14:58 | Emergency Department Note ---
Impression & Plan Acute hyponatremia, Hypertension, Threatening suicide, Agitation ED Provider Note NAME: NIURKA MO AGE: 56 SEX: F : 1965 ARRIVES VIA: Ambulance INFORMANT: [Patient][nursing] ED PROVIDER(S): [Rubin Argueta MD] CHIEF COMPLAINT: Mental health evaluation HISTORY OF PRESENT ILLNESS: The patient is a 56-year-old female who was brought by police and EMS. She shon arently is recently homeless and living under a bridge. She was walking a lot today. She recently met a man and asked to live with him, he did not agree. The patient has apparently been spending a lot of time outside this man's house. She did threaten suicide at 1 point. He called the police today. She was brought here for a mental health evaluation. The patient states that she has not eaten in several days and she is quite hungry. She states that she did fall early this morning while [place] and struck her head. No loss of consciousness. No real headache at the moment. She did not injure her arms, neck, back, chest or abdomen with the fall. The patient currently states that she is not suicidal. She states that the people that called the police lied. She is not going to kill herself. The patient is on prescribed medications. She has a history of COPD. She has not taken her meds in some time. REVIEW OF SYSTEMS: See HPI for pertinent positives and negatives. A total of ten systems were reviewed and were otherwise negative. PMHx/PSHx: See Below SOCIAL HISTORY: See Below. PHYSICAL EXAM: GENERAL: Patient is in no acute distress. HEENT: No acute trauma, normocephalic atraumatic, mucous membranes moist, no nasal congestion, no scleral icterus. NECK: No stridor, no adenopathy, no meningismus, trachea is midline. LUNGS: Clear to auscultation bilaterally, no wheeze, no rhonchi, breath sounds equal. HEART: Without murmurs gallops or rubs, regular rate and rhythm. ABDOMEN: Soft, nontender, bowel sounds positive, no peritonitis. EXTREMITIES: No cyanosis or edema, full range of motion of all the joints without pain or difficulty, no signs for acute trauma. NEUROLOGIC: Oriented x 3, no acute motor or sensory deficits, no focal weakness. SKIN: No rash, no jaundice, no diaphoresis. Psychiatric: Cooperative, currently voluntary. Denies intent to harm herself. Admits to being homeless. DIFFERENTIAL DIAGNOSIS: Mood disorder, infection, hypoglycemia, intracranial bleeding or skull fracture, rhabdomyolysis, dehydration, suicidality, psychosis, electrolyte abnormalities, cardiac sources, intracerebral event, toxicologic etiology, trauma, neurologic event, as well as other pathologies. EMERGENCY DEPARTMENT COURSE/PROCEDURES: MEDICAL DECISION MAKING: There is no leukocytosis or concerning anemia. There is a normal platelet count. Sodium was low at 129. No renal failure. No concerning liver enzyme elevation. The patient appeared to be in a euthyroid state. Total CK was normal essentially ruling out rhabdomyolysis. Brain CT showed no acute bleed or mass-effect. Urinalysis did not show infection. Aspirin, Tylenol and alcohol levels were undetectable. Urine tox was negative. COVID test was negative. The patient was hypertensive. She received her typical dose of oral losartan. She had not taken her BP meds in several days. She became agitated here. She agreed to take oral medications. She was given 10 mg of oral Haldol and 2 mg of oral Ativan. This medication helped her agitation and she was much more cooperative and comfortable. Given the hyponatremia, given the uncontrolled hypertension, the patient cannot be placed at a psychiatry facility. She is technically not medically clear. I did speak with the patient, I spoke with case management, I did speak with the on-call hospitalist. She will need a psychiatric consult once on the medical floor. Past Med/Surg History Medical History Acid reflux Alcoholism Anxiety Arthritis Benign essential hypertension Cervical disc disease Depression Depression with anxiety Dermatitis Dyslipidemia Fatty liver Lumbar disc disease Lumbar spinal stenosis Microscopic colitis Mood disorder Pulmonary nodule Pulmonary nodules Vitamin D deficiency Surgical History H/O sinus surgery H/O tubal ligation History of back surgery History of tonsillectomy Hx of unilateral salpingectomy Family History Father Colitis Hypertension Mother Hypertension Grandfather (Paternal) Myocardial infarction Coronary heart disease Sister Hypertension Denies family history of Ovarian cancer Prostate cancer Breast cancer Colorectal cancer Social History Smoking Status: Current every day smoker Tobacco Type: Cigarettes packs per day: 1; Cigarettes Per Day: 20; Second Hand Exposure: No; Hx Alcohol Use: Yes Alcohol Intake Frequency: 4 or More x per/Week Hx Substance Use: No Preferred Language: Belarusian Communication Ability: Effective Visual Impairment: No Limitations Hearing Ability: Normal Payment Analyst Required: No Beliefs That Will Affect Care: None marital status: Single Current Living Situation: Alone Current Living Situation Comment: with help available current occupational status: disabled Feels Safe at Home: Yes Childhood Exposure to Second-Hand Smoke: No caffeine: Yes during the past year weight has: decreased > 10 lbs Dental Care, Regularly: Yes Physical Activity Frequency: 3-4 Times per Week Physical Activity Frequency Comment: due to physical condition Seatbelt Use: always Sunscreen Use: No Assistive Devices: Walker Allergies Allergies Allergy/AdvReac Type Severity Reaction Status Date / Time capsaicin Allergy Mild DIARRHEA Unverified 02/08/22 09:56 diclofenac Allergy Mild DIARRHEA Unverified 02/08/22 09:56 ciprofloxacin Allergy Unknown ITCHING Verified 02/08/22 09:56 metronidazole Allergy Unknown ITCHING Verified 02/08/22 09:56 Gabapentin CAPS AdvReac Intermediate edema Uncoded 02/08/22 09:56 Home Meds Home Medications Medication Instructions Recorded Confirmed light mineral oil 1 %-mineral oil drp ophthalmic (eye) PRN 05/24/21 02/08/22 4.5 % eye drops (Soothe XP) alprazolam 1 mg tablet 1 mg PO QID PRN 11/26/21 02/08/22 temazepam 30 mg capsule 30 mg PO .qhs 11/26/21 02/08/22 trazodone 100 mg tablet 100 mg PO DAILY 11/26/21 02/08/22 Previous Rx's Medication Instructions Recorded cholecalciferol (vitamin D3) 50 2,000 unit PO DAILY #90 caps 04/22/20 mcg (2,000 unit) capsule fluocinonide 0.05 % topical cream 1 applic topical BID Leg Rash #60 10/13/21 grams atorvastatin 20 mg tablet 20 mg PO DAILY #90 tabs 02/08/22 docusate sodium 100 mg capsule 100 mg PO BID #60 caps 02/08/22 fluticasone propionate 50 2 spray intranasal DAILY #15.8 mL 02/08/22 mcg/actuation nasal spray,suspension (Flonase Allergy Relief) losartan 50 mg tablet 50 mg PO BID #180 tabs 02/08/22 pantoprazole 40 mg tablet,delayed 40 mg PO DAILY #90 tabs 02/08/22 release triamcinolone acetonide 0.1 % 1 applic topical BID #80 grams 02/08/22 topical cream furosemide 20 mg tablet (Lasix) 20 mg PO DAILY PRN edema #30 tabs 02/15/22 Results & Data (ED) Vital Signs Vital Signs - 24 hr 04/09/22 14:40 04/09/22 18:27 04/09/22 19:15 Temperature 36.8 C 37.6 C H Temperature Source Oral Oral Pulse Rate 76 Pulse Rate [Left Finger] 69 64 Pulse Rhythm Regular Pulse Rhythm [Left Finger] Regular Pulse Strength Normal Respiratory Rate 20 18 16 Respiratory Effort / Characteristics Non-Labored Spontaneous Non-Labored Respiratory Depth Normal Normal Respiratory Pattern Regular Regular Blood Pressure 152/111 H Blood Pressure [Left Arm] 125/72 105/65 Blood Pressure Mean 124 Blood Pressure Mean [Left Arm] 89 78 Blood Pressure Position Sitting Pulse Oximetry 96 96 97 Oxygen Delivery Method Room Air Room Air Room Air Sepsis Recent Fever Within 48 Hours No Sepsis New/Unexplained Change in Mental Status N/A Sepsis Action Taken by Nursing No Action Required Home Medications Current Medication List: was personally reviewed by me Laboratory Data Attestation: I reviewed the patient's lab results. Result diagrams: 04/09/22 15:00 04/09/22 15:00 Lab Results 04/09/22 04/09/22 04/09/22 Range/Units 14:50 14:50 15:00 WBC 9.30 (4.8-10.8) K/ul RBC 4.37 (3.93-5.22) M/uL Hgb 13.1 (12.0-16.0) g/dl Hct 37.4 (34.1-44.9) % MCV 85.6 (80.0-100.0) fL MCH 30.0 (25.0-34.0) pg MCHC 35.0 (32.0-36.0) g/dL RDW Std Deviation 44.0 (36.4-46.3) fL RDW Coeff of Roger 14.0 (11.5-14.5) % Plt Count 335 (130-400) K/uL MPV 9.1 L (9.4-12.3) fL Immature Gran % (Auto) 0.3 % Neut % (Auto) 63.4 % Lymph % (Auto) 26.5 % [place] % (Auto) 8.0 % Eos % (Auto) 1.0 % Baso % (Auto) 0.8 % Neut # (Auto) 5.91 (1.4-6.5) K/uL Lymph # (Auto) 2.46 (1.2-3.4) K/uL [place] # (Auto) 0.74 (0.24-0.82) K/uL Eos # (Auto) 0.09 (0-0.50) K/uL Baso # (Auto) 0.07 (0-0.2) K/uL Immature Gran # (Auto) 0.03 H (0.00-0.02) K/uL Sodium (136-145) mmol/L Potassium (3.5-5.1) mmol/L Chloride (98-107) mmol/L Carbon Dioxide (21-32) mmol/L Anion Gap (3-11) BUN (6-23) mg/dl Creatinine (0.6-1.2) mg/dl Est Cr Clr Drug Dosing Est GFR ( Amer) ml/min Est GFR (Non-Af Amer) ml/min BUN/Creatinine Ratio (10-20) Glucose (70-99(Fasting)) mg/dl Calcium (8.5-10.1) mg/dl Total Bilirubin (0.2-1.0) mg/dl AST (13-39) U/L ALT (7-52) U/L Alkaline Phosphatase (34-104) U/L Total Creatine Kinase (26-192) U/L Total Protein (6.0-8.3) gm/dl Albumin (3.4-5.0) gm/dl Globulin (2.5-4.0) gm/dl Albumin/Globulin Ratio (0.9-2) TSH (0.300-4.500) uIu/ml Urine Color Yellow Urine Appearance Clear (Clear) Urine pH 7.0 (4.5-7.5) Ur Specific [place] 1.004 (1.000-1.030) Urine Protein Negative (Negative) Urine Glucose (UA) Negative (Negative) Urine Ketones Negative (Negative) Urine Blood Negative (Negative) Urine Nitrite Negative (Negative) Urine Bilirubin Negative (Negative) Urine Urobilinogen Negative (Negative) Ur Leukocyte Esterase Negative (Negative) Salicylates (3.0-30) mg/dl Urine Opiates Screen Neg (Neg) Ur Methadone, Qual Neg (Neg) Acetaminophen (10-30) ug/ml Urine Barbiturates Neg (Neg) Ur Phencyclidine (PCP) Neg (Neg) U Amphetamin/Meth Scrn Neg (Neg) MDMA (Ecstasy) Screen Neg (Neg) U Benzodiazepines Scrn Neg (Neg) Ur Cocaine Metabolite Neg (Neg) U Marijuana (THC) Screen Neg (Neg) Ethyl Alcohol mg/dL (<10.0) mg/dl SARS-CoV-2, RNA, NAAT (NEGATIVE) 04/09/22 04/09/22 04/09/22 Range/Units 15:00 15:00 15:00 WBC (4.8-10.8) K/ul RBC (3.93-5.22) M/uL Hgb (12.0-16.0) g/dl Hct (34.1-44.9) % MCV (80.0-100.0) fL MCH (25.0-34.0) pg MCHC (32.0-36.0) g/dL RDW Std Deviation (36.4-46.3) fL RDW Coeff of Roger (11.5-14.5) % Plt Count (130-400) K/uL MPV (9.4-12.3) fL Immature Gran % (Auto) % Neut % (Auto) % Lymph % (Auto) % [place] % (Auto) % Eos % (Auto) % Baso % (Auto) % Neut # (Auto) (1.4-6.5) K/uL Lymph # (Auto) (1.2-3.4) K/uL [place] # (Auto) (0.24-0.82) K/uL Eos # (Auto) (0-0.50) K/uL Baso # (Auto) (0-0.2) K/uL Immature Gran # (Auto) (0.00-0.02) K/uL Sodium 129 L (136-145) mmol/L Potassium 3.5 (3.5-5.1) mmol/L Chloride 95 L (98-107) mmol/L Carbon Dioxide 29 (21-32) mmol/L Anion Gap 5 (3-11) BUN 6 (6-23) mg/dl Creatinine 0.73 (0.6-1.2) mg/dl Est Cr Clr Drug Dosing Not Reportable Est GFR ( Amer) 105.2 ml/min Est GFR (Non-Af Amer) 90.8 ml/min BUN/Creatinine Ratio 8.2 L (10-20) Glucose 85 (70-99(Fasting)) mg/dl Calcium 9.0 (8.5-10.1) mg/dl Total Bilirubin 0.5 (0.2-1.0) mg/dl AST 19 (13-39) U/L ALT 16 (7-52) U/L Alkaline Phosphatase 70 (34-104) U/L Total Creatine Kinase 75 (26-192) U/L Total Protein 6.2 (6.0-8.3) gm/dl Albumin 4.0 (3.4-5.0) gm/dl Globulin 2.2 L (2.5-4.0) gm/dl Albumin/Globulin Ratio 1.8 (0.9-2) TSH 0.692 (0.300-4.500) uIu/ml Urine Color Urine Appearance (Clear) Urine pH (4.5-7.5) Ur Specific [place] (1.000-1.030) Urine Protein (Negative) Urine Glucose (UA) (Negative) Urine Ketones (Negative) Urine Blood (Negative) Urine Nitrite (Negative) Urine Bilirubin (Negative) Urine Urobilinogen (Negative) Ur Leukocyte Esterase (Negative) Salicylates < 3.0 L (3.0-30) mg/dl Urine Opiates Screen (Neg) Ur Methadone, Qual (Neg) Acetaminophen < 3 L (10-30) ug/ml Urine Barbiturates (Neg) Ur Phencyclidine (PCP) (Neg) U Amphetamin/Meth Scrn (Neg) MDMA (Ecstasy) Screen (Neg) U Benzodiazepines Scrn (Neg) Ur Cocaine Metabolite (Neg) U Marijuana (THC) Screen (Neg) Ethyl Alcohol mg/dL (<10.0) mg/dl SARS-CoV-2, RNA, NAAT (NEGATIVE) 04/09/22 04/09/22 Range/Units 15:00 15:00 WBC (4.8-10.8) K/ul RBC (3.93-5.22) M/uL Hgb (12.0-16.0) g/dl Hct (34.1-44.9) % MCV (80.0-100.0) fL MCH (25.0-34.0) pg MCHC (32.0-36.0) g/dL RDW Std Deviation (36.4-46.3) fL RDW Coeff of Roger (11.5-14.5) % Plt Count (130-400) K/uL MPV (9.4-12.3) fL Immature Gran % (Auto) % Neut % (Auto) % Lymph % (Auto) % [place] % (Auto) % Eos % (Auto) % Baso % (Auto) % Neut # (Auto) (1.4-6.5) K/uL Lymph # (Auto) (1.2-3.4) K/uL [place] # (Auto) (0.24-0.82) K/uL Eos # (Auto) (0-0.50) K/uL Baso # (Auto) (0-0.2) K/uL Immature Gran # (Auto) (0.00-0.02) K/uL Sodium (136-145) mmol/L Potassium (3.5-5.1) mmol/L Chloride (98-107) mmol/L Carbon Dioxide (21-32) mmol/L Anion Gap (3-11) BUN (6-23) mg/dl Creatinine (0.6-1.2) mg/dl Est Cr Clr Drug Dosing Est GFR ( Amer) ml/min Est GFR (Non-Af Amer) ml/min BUN/Creatinine Ratio (10-20) Glucose (70-99(Fasting)) mg/dl Calcium (8.5-10.1) mg/dl Total Bilirubin (0.2-1.0) mg/dl AST (13-39) U/L ALT (7-52) U/L Alkaline Phosphatase (34-104) U/L Total Creatine Kinase (26-192) U/L Total Protein (6.0-8.3) gm/dl Albumin (3.4-5.0) gm/dl Globulin (2.5-4.0) gm/dl Albumin/Globulin Ratio (0.9-2) TSH (0.300-4.500) uIu/ml Urine Color Urine Appearance (Clear) Urine pH (4.5-7.5) Ur Specific [place] (1.000-1.030) Urine Protein (Negative) Urine Glucose (UA) (Negative) Urine Ketones (Negative) Urine Blood (Negative) Urine Nitrite (Negative) Urine Bilirubin (Negative) Urine Urobilinogen (Negative) Ur Leukocyte Esterase (Negative) Salicylates (3.0-30) mg/dl Urine Opiates Screen (Neg) Ur Methadone, Qual (Neg) Acetaminophen (10-30) ug/ml Urine Barbiturates (Neg) Ur Phencyclidine (PCP) (Neg) U Amphetamin/Meth Scrn (Neg) MDMA (Ecstasy) Screen (Neg) U Benzodiazepines Scrn (Neg) Ur Cocaine Metabolite (Neg) U Marijuana (THC) Screen (Neg) Ethyl Alcohol mg/dL < 10.0 (<10.0) mg/dl SARS-CoV-2, RNA, NAAT NEGATIVE (NEGATIVE) Administered Medications Discontinued Medications Haloperidol (Haloperidol 5 Mg/2.5 Ml Udp) 5 mg PO NOW STA Stop: 04/09/22 15:41 Last Admin: 04/09/22 16:05 Dose: 5 mg Documented By: ASW Haloperidol (Haloperidol 5 Mg/2.5 Ml Udp) 5 mg PO NOW STA Stop: 04/09/22 15:50 Last Admin: 04/09/22 16:05 Dose: 5 mg Documented By: ASW Lorazepam (Lorazepam 1 Mg Tab) 2 mg SL NOW STA Stop: 04/09/22 15:41 Last Admin: 04/09/22 16:05 Dose: 2 mg Documented By: ASW Losartan Potassium (Losartan Potassium 50 Mg Tab) 50 mg PO NOW STA Stop: 04/09/22 15:41 Last Admin: 04/09/22 16:05 Dose: 50 mg Documented By: ASW Imaging Data Radiologist's Impression: Head CT 04/09/22 14:[address] DOSE: 767.83 mGy.cm HISTORY: fall, hit head TECHNIQUE: Multiaxial CT images of the head were performed without the use of intravenous contrast. Automated exposure control was utilized for this study. A dose lowering technique was utilized adhering to the principles of ALARA. Comparison: Head CT 11/12/2021. Findings: The motion artifact results in suboptimal evaluation. There is mild mucosal thickening within the ethmoid air cells. The mastoid air cells are clear. The calvarium and skull base are intact. The ventricles and sulci are within normal limits. There is no mass, hematoma, midline shift, or acute infarct. Impression: Motion artifact. No definite acute intracranial abnormality. ACT 112: Negative or not required by law. Electronically signed by: Aston Mongtomery M.D. 04/09/2022 3:58 PM Discharge Plan Visit Data Chief Complaint: Mental Health Evaluation Stated Complaint: EMOTIONAL/MENTAL HEALTH, FALL ED Provider: Rubin Argueta Discharge Problem: Acute hyponatremia, Hypertension, Threatening suicide, Agitation Patient Disposition: Admitted As Inpatient Condition: Fair Forms Stand Alone Forms: [facility], [facility], Suicide Prevention Resources Prescriptions Prescriptions: No Action cholecalciferol (vitamin D3) 50 mcg (2,000 unit) capsule 2,000 unit PO DAILY Qty: 90 3RF fluocinonide 0.05 % cream 1 applic TOP BID Qty: 60 4RF Rx Instructions: APPLY SPARINGLY TO AFFECTED AREA(S) TWICE DAILY atorvastatin 20 mg tablet 20 mg PO DAILY Qty: 90 2RF docusate sodium 100 mg capsule 100 mg PO BID Qty: 60 5RF fluticasone propionate [Flonase Allergy Relief] 50 mcg/actuation spray,suspension 2 spray INTNAS DAILY Qty: 15.8 3RF Rx Instructions: administer into each nostril losartan 50 mg tablet 50 mg PO BID Qty: 180 3RF pantoprazole 40 mg tablet,delayed release (DR/EC) 40 mg PO DAILY Qty: 90 1RF triamcinolone acetonide 0.1 % cream 1 applic TOP BID Qty: 80 1RF furosemide [Lasix] 20 mg tablet 20 mg PO DAILY PRN (Reason: edema) Qty: 30 0RF Soothe XP 1-4.5 % drops ophthalmic (eye) PRN trazodone 100 mg tablet 100 mg PO DAILY alprazolam 1 mg tablet 1 mg PO QID PRN temazepam 30 mg capsule 30 mg PO .qhs Referrals Referrals: Maegan Brooks DO [Primary Care Provider] -
[2022-04-09 15:08] LABS: Appearance Urine Clear (Clear); Bilirubin Urine Negative (Negative); Blood Urine Negative (Negative); Color Urine Yellow; Glucose Urine UA Negative (Negative); Ketones Urine Negative (Negative); Leukocyte Esterase Urine Negative (Negative); Nitrite Urine Negative (Negative); Protein Urine Negative (Negative); Specific Gravity Urine 1.004 (1.000-1.030); Urobilinogen Urine Negative (Negative)
[2022-04-09 15:23] LABS: Basophils # (auto) 0.07 K/uL (0-0.2); Basophils % (auto) 0.8 %; Eosinophils # (auto) 0.09 K/uL (0-0.50); Hematocrit (blood only) 37.4 % (34.1-44.9); Hemoglobin 13.1 g/dl (12.0-16.0); Immature Granulocytes # (auto) 0.03 K/uL (0.00-0.02); Immature Granulocytes % (auto) 0.3 %; Lymphocytes # (auto) 2.46 K/uL (1.2-3.4); Lymphocytes % (auto) 26.5 %; Mean Corpuscular Volume 85.6 fL (80.0-100.0); Mean Platelet Volume 9.1 fL (9.4-12.3); Monocytes # (auto) 0.74 K/uL (0.24-0.82); Neutrophils # (auto) 5.91 K/uL (1.4-6.5); Neutrophils % (auto) 63.4 %; Platelet Count 335 K/uL (130-400); Red Blood Count 4.37 M/uL (3.93-5.22)
[2022-04-09 15:31] LABS: Amphetamines+Metham, Urine Neg (Neg); Barbiturates, Urine Neg (Neg); Benzodiazepine, Urine Neg (Neg); Cocaine, Urine Neg (Neg); MDMA (Ecstacy), Urine Neg (Neg); Methadone, Urine Neg (Neg); Opiate, Urine Neg (Neg); Phencyclidine, Urine Neg (Neg)
[2022-04-09] MEDS ORDERED: LORazepam 1 MG TAB SL STA (15:40)
[2022-04-09] MEDS ORDERED: LOSARTAN POTASSIUM 50 MG TAB PO STA (15:40)
[2022-04-09] MEDS ORDERED: HALOPERIDOL 5 MG/2.5 ML UDP PO STA ×2 (15:40→15:49)
[2022-04-09 15:42] LABS: Acetaminophen < 3 ug/ml (10-30); Salicylate < 3.0 mg/dl (3.0-30)
[2022-04-09 15:45] LABS: Alanine Aminotransferase 16 U/L (7-52); Albumin Globulin Ratio 1.8 (0.9-2); Alkaline Phosphatase 70 U/L (34-104); Anion Gap 5 (3-11); Aspartate Aminotransferase 19 U/L (13-39); BUN Creatinine Ratio 8.2 (10-20); Bilirubin,Total 0.5 mg/dl (0.2-1.0); Blood Urea Nitrogen 6 mg/dl (6-23); Carbon Dioxide 29 mmol/L (21-32); Chloride 95 mmol/L (98-107); Creatine Kinase 75 U/L (26-192); Est GFR (African American) 105.2 ml/min; Est GFR (Non-African American) 90.8 ml/min; Globulin 2.2 gm/dl (2.5-4.0); Glucose 85 mg/dl (70-99(Fasting)); Potassium 3.5 mmol/L (3.5-5.1); Sodium 129 mmol/L (136-145); Total Protein 6.2 gm/dl (6.0-8.3)
--- NOTE | 2022-04-09 16:01 | CT Scan Report ---
HEAD CT NONCONTRAST CT DOSE: 767.83 mGy.cm HISTORY: fall, hit head TECHNIQUE: Multiaxial CT images of the head were performed without the use of intravenous contrast. A utomated exposure control was utilized for this study. A dose lowering technique was utilized adheri ng to the principles of ALARA. Comparison: Head CT 11/12/2021. Findings: The motion artifact results in suboptimal evaluation. There is mild mucosal thickening with in the ethmoid air cells. The mastoid air cells are clear. The calvarium and skull base are intact. T he ventricles and sulci are within normal limits. There is no mass, hematoma, midline shift, or acute infarct. Impression: Motion artifact. No definite acute intracranial abnormality. ACT 112: Negative or not required by law. Electronically signed by: Aston Montgomery M.D. 04/09/2022 3:58 PM
--- NOTE | 2022-04-09 17:53 | History & Physical Report ---
Date of Service April 09, 2022 Assessment & Plan (1) Hyponatremia: Plan: Geri is a 56-year-old female brought in by police and EMS after being found homeless/living under a bridge with concern for suicidal expression who had not eaten in several days, and fell while walking [place] and hit her head but did not have a loss of consciousness or headache. Hyponatremia Chronic, intermittent Patient has not taken medications in over a week, lower suspicion for medication induced Patient reports she has not had a meal in several days, and has been drinking poorly in the last month and has been homeless after being infected. Has a past history of alcohol use, denies recent alcohol use and alcohol is negative on admission Suspect solute depletion rather than SIADH, urine osmolality/sodium and serum studies pending Fluid restriction deferred pending above evaluation. 1 L supplemental fluids given. If studies consistent with SIADH stop IVF and fluid restrict. BUN/creatinine ratio is low, but patient with low muscle mass and chronic malnutrition BMP daily Nutrition consult placed History of poor nutritional intake, homeless, history of alcohol use No recent alcohol use Nutritional consult placed Continue folic acid, B12 supplementation Case management consulted Suicidal ideation By report patient expressed this prior to admission Is currently on 302, pending medical clearance Behavioral health consulted Patient denies SI/HI/plan at time hospitalist assessment We will continue one-to-one overnight pending serial exams Benzodiazepine dependence Past, patient has not taken any medications in the last 2 weeks including benzos per report at bedside Suspect outside of seizure window for benzo dependence, however will follow closely and have lorazepam on-call. If seizure activity is observed, transfer t o telemetry Hyperlipidemia Atorvastatin resumed Hypertension Poorly controlled, with agitation and HUMAN RESOURCES ADMIN med noncompliance Resume losartan 50 mg DVT prophylaxis: Ambulate, Lovenox CODE STATUS: Full code Disposition: Medical/surgical, patient is currently on 302 and may not leave AMA Diet: Regular (2) Suicidal ideation: (3) Dyslipidemia: (4) Benzodiazepine dependence: (5) Benign essential hypertension: (6) Alcoholism: History of Present Illness Primary Care Provider: Maegan Brooks DO Geri is a 56-year-old female brought in by police and EMS after being found homeless/living under a bridge with concern for suicidal expression who had not eaten in several days, and fell while walking [place] and hit her head but did not have a loss of consciousness or headache. Somewhat groggy and sedated following chemical control of agitation episode while in the ER, however arouses and is appropriate with conversation after. [address], pending medical clearance due to hyponatremia. Patient reports that she was kicked out of her house and has been homeless for the last few weeks. She notes that she had hoped to live with a potential boyfriend, but that this was not possible. By EMS report patient had expressed suicidal ideation, at bedside patient denies this. Denies auditory/visual hallucinations. Endorses some fatigue and weakness, notes she has not had a regular meal in several days and has not been drinking very much either. Denies fever, chills, sweats, chest pain, chest pressure. Does endorse a history of gout and floppy feeling in her legs but no pain in her ankles currently. She reports she has not taken any medications in at least a week, notes that these were in her house which she has been kicked out of/evicted from. Does not give a reliable medical history at bedside, still somewhat somnolent following Haldol/lorazepam in ER as noted. Patient is aware that she has had a [address], but is being admitted to medical floor for treatment of hyponatremia but that BHU has been consulted. No questions or concerns, patient is agreeable to hospital admission at this time. Medical History: Reviewed Medications: Reviewed Surgical History: Reviewed Allergies: Reviewed Social History: Denies recent alcohol use, alcohol negative on admission. History of tobacco use. Denies substance use/marijuana use recently, endorses past marijuana use. Code Status: Full Allergies Allergy/AdvReac Type Severity Reaction Status Date / Time capsaicin Allergy Mild DIARRHEA Unverified 02/08/22 09:56 diclofenac Allergy Mild DIARRHEA Unverified 02/08/22 09:56 ciprofloxacin Allergy Unknown ITCHING Verified 02/08/22 09:56 metronidazole Allergy Unknown ITCHING Verified 02/08/22 09:56 Gabapentin CAPS AdvReac Intermediate edema Uncoded 02/08/22 09:56 Home Medications Medication Instructions Recorded Confirmed Type cholecalciferol (vitamin D3) 50 2,000 unit PO DAILY #90 caps 04/22/20 02/08/22 Rx mcg (2,000 unit) capsule light mineral oil 1 %-mineral oil drp ophthalmic (eye) PRN 05/24/21 02/08/22 History 4.5 % eye drops (Soothe XP) fluocinonide 0.05 % topical cream 1 applic topical BID Leg Rash #60 10/13/21 02/08/22 Rx grams alprazolam 1 mg tablet 1 mg PO QID PRN 11/26/21 02/08/22 History temazepam 30 mg capsule 30 mg PO .qhs 11/26/21 02/08/22 History trazodone 100 mg tablet 100 mg PO DAILY 11/26/21 02/08/22 History atorvastatin 20 mg tablet 20 mg PO DAILY #90 tabs 02/08/22 Rx docusate sodium 100 mg capsule 100 mg PO BID #60 caps 02/08/22 Rx fluticasone propionate 50 2 spray intranasal DAILY #15.8 mL 02/08/22 Rx mcg/actuation nasal spray,suspension (Flonase Allergy Relief) losartan 50 mg tablet 50 mg PO BID #180 tabs 02/08/22 Rx pantoprazole 40 mg tablet,delayed 40 mg PO DAILY #90 tabs 02/08/22 Rx release triamcinolone acetonide 0.1 % 1 applic topical BID #80 grams 02/08/22 Rx topical cream furosemide 20 mg tablet (Lasix) 20 mg PO DAILY PRN edema #30 tabs 02/15/22 Rx Past Med/Surg History Medical History Acid reflux Alcoholism Anxiety Arthritis Benign essential hypertension Cervical disc disease Depression Depression with anxiety Dermatitis Dyslipidemia Fatty liver Lumbar disc disease Lumbar spinal stenosis Microscopic colitis Mood disorder Pulmonary nodule Pulmonary nodules Vitamin D deficiency Surgical History H/O sinus surgery H/O tubal ligation History of back surgery History of tonsillectomy Hx of unilateral salpingectomy Family History Father Colitis Hypertension Mother Hypertension Grandfather (Paternal) Myocardial infarction Coronary heart disease Sister Hypertension Denies family history of Ovarian cancer Prostate cancer Breast cancer Colorectal cancer Social History Smoking Status: Current every day smoker Tobacco Type: Cigarettes packs per day: 1; Cigarettes Per Day: 20; Second Hand Exposure: No; Hx Alcohol Use: Yes Alcohol Intake Frequency: 4 or More x per/Week Hx Substance Use: No Preferred Language: Irish Communication Ability: Effective Visual Impairment: No Limitations Hearing Ability: Normal Multiplex Operator Required: No Beliefs That Will Affect Care: None marital status: Single Current Living Situation: Alone Current Living Situation Comment: with help available current occupational status: disabled Feels Safe at Home: Yes Childhood Exposure to Second-Hand Smoke: No caffeine: Yes during the past year weight has: decreased > 10 lbs Dental Care, Regularly: Yes Physical Activity Frequency: 3-4 Times per Week Physical Activity Frequency Comment: due to physical condition Seatbelt Use: always Sunscreen Use: No Assistive Devices: Walker Review of Systems Review of Systems: All systems reviewed & are unremarkable except as noted in Subjective Physical Exam Physical Exam: General: Somnolent, but arouses. Oriented to name, place, day of week, and year. Not responding to internal stimuli. Linear thought process. Denies AH/VH, denies SI HEENT: Atraumatic, normocephalic. Pupils equal and reactive to light. Visual acuity diminished, patient reports she uses reading glasses and does not have these. Reports acuity at its normal baseline, hearing is intact Pulm: CTAB A&P. -wheezes, -rales, -rhonchi. Symmetrical chest rise. No increase in work of breathing. No respiratory distress. Cardiac: RRR, -mrg. Radial pulses intact and symmetrical. Abdominal: Nontender, nondistended, soft. BS present. Extremities: Warm, dry. No pitting edema. Sensation to soft touch intact in hands and feet. Ankle dorsiflexion/plantarflexion 4+/5, fabricator artificial breast strength 5/5 bilaterally. Results & Data Results & Data ([facility]) Vital Signs (Past 12 Hours) Vital Signs Temp Pulse Resp BP Pulse Ox O2 Del Method 04/09/22 14:40 36.8 C 76 20 152/111 H 96 Room Air PG Care Time/CCT Total # of Minutes Spent Total Time Spent with Patient: Total time spent is greater than 50% in coordination of care (as documented) at patient's floor/unit and/or counseling patient: Coding Level of Care Code 03508 Initial Inpt Care Lvl 2 Diagnoses Hyponatremia E87.1 Suicidal ideation R45.851 Dyslipidemia E78.5 Benzodiazepine dependence F13.20 Benign essential hypertension I10 Alcoholism F10.20
[2022-04-09] MEDS ORDERED: LORazepam 2 MG/2 ML SYR IV PRN ×2 (22:55)
[2022-04-09] MEDS ORDERED: MULTI-VITAMIN INFUSION 10 ML, THIAMINE HCL 100 MG, FOLIC ACID 1 MG in SODIUM CHLORIDE 0... IV ONE (22:55)
[2022-04-09] MEDS ORDERED: HALOPERIDOL LACTATE 5 MG/ML 1 ML VIAL IM PRN (22:55)
[2022-04-09] MEDS ORDERED: ACETAMINOPHEN 325 MG TAB PO PRN (22:55)
[2022-04-10] MEDS ORDERED: LORazepam 2 MG in SYRINGE 0 ML IV PRN (00:02)
[2022-04-10] MEDS ORDERED: LORazepam 4 MG in SYRINGE 0 ML IV PRN (00:05)
[2022-04-10] MEDS: THIAMINE HCL 100 MG TAB PO SCH ×2 (00:27→09:17)
[2022-04-10 06:26] LABS: Basophils # (auto) 0.04 K/uL (0-0.2); Basophils % (auto) 0.5 %; Eosinophils # (auto) 0.08 K/uL (0-0.50); Hematocrit (blood only) 38.1 % (34.1-44.9); Hemoglobin 13.3 g/dl (12.0-16.0); Immature Granulocytes # (auto) 0.02 K/uL (0.00-0.02); Immature Granulocytes % (auto) 0.3 %; Lymphocytes # (auto) 1.55 K/uL (1.2-3.4); Lymphocytes % (auto) 20.3 %; Mean Corpuscular Hemoglobin 29.8 pg (25.0-34.0); Mean Corpuscular Hgb Conc 34.9 g/dL (32.0-36.0); Mean Corpuscular Volume 85.4 fL (80.0-100.0); Mean Platelet Volume 9.2 fL (9.4-12.3); Monocytes # (auto) 0.59 K/uL (0.24-0.82); Monocytes % (auto) 7.7 %; Neutrophils # (auto) 5.34 K/uL (1.4-6.5); Neutrophils % (auto) 70.2 %; Platelet Count 343 K/uL (130-400); RDW Coefficient of Variation 14.1 % (11.5-14.5); RDW Standard Deviation 43.8 fL (36.4-46.3); Red Blood Count 4.46 M/uL (3.93-5.22); White Blood Count 7.62 K/ul (4.8-10.8)
[2022-04-10 06:46] LABS: Calcium 8.5 mg/dl (8.5-10.1); Creatinine Clr Calc Pharmacy 89.9 ml/min; Est GFR (African American) 111.2 ml/min; Potassium 3.7 mmol/L (3.5-5.1)
[2022-04-10] MEDS ORDERED: ENOXAPARIN INJ 30 MG/0.3 ML SYR SQ SCH (09:00)
[2022-04-10] MEDS: FOLIC ACID 1 MG TAB PO SCH (09:18)
[2022-04-10] MEDS: LOSARTAN POTASSIUM 50 MG TAB PO SCH (09:18)
[2022-04-10] MEDS: PANTOprazole 40 MG TAB PO SCH (09:42)
--- NOTE | 2022-04-10 09:49 | Psychiatric Consultation ---
Date of Consultation April 10, 2022 Impression / Recommendations Impression 56 yo woman with history of unspecified mood disorder, anxiety, depression, alcohol use on chronic benzodiazepines (confirmed via PDMP-Xanax QID and Restoril) admitted with hyponatremia and after making statements of SI on 302 box A warrant. Diagnostically consistent with unspecified psychosis with paranoia, tangential thought content, inattention, and significant mood lability (tearful then laughing then yelling in rapid succession). Differential including delirium given hyponatremia and limited po intake over last fews vs benzo withdrawal delirium (did not have access to medications after being evicted from her apartment) vs substance-induced (was apparently at bar within last few days though states only had a few sips of beer and UDS negative) versus mixed state of BPAD versus primary psychotic disorder. Currently remains at high acute risk for self-harm given mood lability and felt to be unable to care for her basic needs of housing/food/hygiene/medical conditions and remains in need of hos pitalization. Once medically stable will determine if she requires inpatient psych hospitalization. (1) Suicidal ideation: (2) Benzodiazepine dependence: (3) Unspecified mood [affective] disorder: (4) Paranoia (psychosis): (5) Acute hyponatremia: Plan 04/10/22: -Continue 1-on-1 for risk of harm to self and on 302 warrant -Do not discharge or allow to leave AMA, call security if attempts to leave -AWSS to monitor for benzo and alcohol withdrawal, if scores would give ativan -Will hold off on antipsychotic for now given hyponatremia, though resolving quickly -Consider checking EKG QTc -Once medically cleared will determine if psychiatric hospitalization is required -She signed MARCOS for ou psychiatrist, will attempt to get records Risk Factors Assessment Do You Have Access To A Gun?: No Psych History Identifying Data 56 yo woman with history of depression, anxiety, unspecified mood disorder, chronic pain, ASIYA, alcohol use admitted medically for hyponatremia. Psychiatry consulted for risk assessment given SI. Chief Complaint "Claudio lied, he just wanted to have sex with me and I turned him down". History of Present Illness Geri was brought to the ED via police and EMS on a 302 box A warrant after making statements of suicide outside a man's home. She was evicted three days ago and is currently homeless and has been living [place] a bridge and reportedly spending time in a man's yard (per ED CM notes he reported she has been stalking him after meeting him at a local bar) with hopes that he would allow her to live in his home. Found to have hyponatremia in the ED and admitted medically on 302 warrant. 302 warrant completed by this man, Claudio Larry, which states: On Apr 08 Geri Clancy said she was going to slit her arms. She said I did it before. I took her home 3 times. She came to my house on Apr 09 and said she was going to kill herself again (cut her wrists). Geri took her finger and crossed both wrists and said I want to . Today Geri has flight of ideas and is difficult to follow at times. She is fully oriented. She tells me she was evicted from her apartment a few days ago "probably because in October I was wandering around naked but the police lady told me, 'hunny no you had a coat on' and so I couldn't get in to get my stuff". With significant efforts to maintain her attention and keep her on topic she is able to tell me that the locks were changed on her apartment a few days ago, she doesn't know why and states she has been paying rent, and thus has been homeless as she doesn't get paid again (she has been on disability for back injury for many years) until 04/28/22 and has no money. Due to lack of money and running out of food stamps she was not able to eat anything over the last "4-5 days". States she doesn't want to return to her apartment anyway and desires a new place to live as she feels "scared to be alone" noting "I'm afraid of the dark". Asked if she thinks she is being targeted she states "yes, I'm worried they're trying to hurt me" but cannot state who might be trying to harm her. She feels safe in the hospital. Tells me she "got confused" while living [place] under the bridge and cannot recall the events leading to being brought to the ED but adamantly denies SI repeatedly telling me she "won't discuss that word" and becoming very irritable when I attempt to ask about SI and past attempts. Denies current SI stating "I do not want to commit suicide, I have things to live for: my brothers and sisters, the world, you, me, eating I guess". Feels that "Claudio lied" and called police "because he wanted sex with me and I wouldn't". Endorses psychiatric history of anxiety and states she currently takes Xanax QID and has been seeing her psychiatrist Dr. Krause for the past 10 years. Denies any other psych diagnoses. Endorses hx of alcohol use disorder but has not had a drink since Jun 25, 2021. Later contradicts herself stating she had some "sips of beer" at the bar earlier this week which is where she met Claudio. Reports hx of complicated alcohol withdrawal with seizures after "quitting cold turkey" last May. Denies any cravings for alcohol. Denies any other substance use. Cannot recall if she had past suicide attempt or provide other psych history stating "I don't know". Past Psychiatric History Do You Have Access To A Gun?: No Allergies Allergy/AdvReac Type Severity Reaction Status Date / Time capsaicin Allergy Mild DIARRHEA Unverified 02/08/22 09:56 diclofenac Allergy Mild DIARRHEA Unverified 02/08/22 09:56 ciprofloxacin Allergy Unknown ITCHING Verified 02/08/22 09:56 metronidazole Allergy Unknown ITCHING Verified 02/08/22 09:56 Gabapentin CAPS AdvReac Intermediate edema Uncoded 02/08/22 09:56 Home Medications Medication Instructions Recorded Confirmed Type cholecalciferol (vitamin D3) 50 2,000 unit PO DAILY #90 caps 04/22/20 02/08/22 Rx mcg (2,000 unit) capsule light mineral oil 1 %-mineral oil drp ophthalmic (eye) PRN 05/24/21 02/08/22 History 4.5 % eye drops (Soothe XP) fluocinonide 0.05 % topical cream 1 applic topical BID Leg Rash #60 10/13/21 02/08/22 Rx grams alprazolam 1 mg tablet 1 mg PO QID PRN 11/26/21 02/08/22 History temazepam 30 mg capsule 30 mg PO .qhs 11/26/21 02/08/22 History trazodone 100 mg tablet 100 mg PO DAILY 11/26/21 02/08/22 History atorvastatin 20 mg tablet 20 mg PO DAILY #90 tabs 02/08/22 Rx docusate sodium 100 mg capsule 100 mg PO BID #60 caps 02/08/22 Rx fluticasone propionate 50 2 spray intranasal DAILY #15.8 mL 02/08/22 Rx mcg/actuation nasal spray,suspension (Flonase Allergy Relief) losartan 50 mg tablet 50 mg PO BID #180 tabs 02/08/22 Rx pantoprazole 40 mg tablet,delayed 40 mg PO DAILY #90 tabs 02/08/22 Rx release triamcinolone acetonide 0.1 % 1 applic topical BID #80 grams 02/08/22 Rx topical cream furosemide 20 mg tablet (Lasix) 20 mg PO DAILY PRN edema #30 tabs 02/15/22 Rx Substance Abuse History see HPI Personal History Living Arrangements: Homeless Employment Status: Disabled Number Of Children: 1 Beliefs That Will Affect Care: Sabianist History of Legal Problems: yes-reports being in group home for 7 days in October Patient History Medical History Acid reflux Alcoholism Anxiety Arthritis Benign essential hypertension Cervical disc disease Depression Depression with anxiety Dermatitis Dyslipidemia Fatty liver Lumbar disc disease Lumbar spinal stenosis Microscopic colitis Mood disorder Pulmonary nodule Pulmonary nodules Vitamin D deficiency Surgical History H/O sinus surgery H/O tubal ligation History of back surgery History of tonsillectomy Hx of unilateral salpingectomy d/t ectopic Family History Father Colitis Hypertension Mother Hypertension Grandfather (Paternal) Myocardial infarction Coronary heart disease Sister Hypertension Denies family history of Ovarian cancer Prostate cancer Breast cancer Colorectal cancer Social History Smoking Status: Current some day smoker Tobacco Type: Cigarettes packs per day: 1; Cigarettes Per Day: Varies, history of smoking since age 11; Second Hand Exposure: No; Hx Alcohol Use: No Hx Substance Use: No Preferred Language: Indonesian Communication Ability: Effective Visual Impairment: No Limitations Hearing Ability: Normal Natural Gas Plant Technician Required: No Beliefs That Will Affect Care: Sabianist Sabianist Beliefs: Mandaen marital status: Single Current Living Situation: Homeless Current Living Situation Comment: with help available current occupational status: disabled Other Information That Helps Us Care for You: No Feels Safe at Home: Yes Childhood Exposure to Second-Hand Smoke: No caffeine: Yes during the past year weight has: decreased > 10 lbs Dental Care, Regularly: Yes Physical Activity Frequency: 3-4 Times per Week Physical Activity Frequency Comment: due to physical condition Seatbelt Use: always Sunscreen Use: No Assistive Devices: Walker Physical Exam Psychiatric: Orientation: alert and oriented x 3 Apperance: appropriately dressed and + disheveled Eye Contact: + fair eye contact Motor Behavior: no abnormal motor movements Speech: + abnormal rate/rhythm/volume of speech (fast and difficult to interrupt) Affect: + tearful affect, + labile affect, + irritable affect, + angry affect and + elated affect Mood: + depressed mood, + anxious mood and + irritable mood Thought Process: + tangential thought process, + flight of ideas and + looseness of associations Thought Content: + paranoid Suicidal Thoughts: denies suicidal thoughts Homicidal Thoughts: denies homicidal thoughts Hallucinations: no auditory hallucinations and no visual hallucinations Cognition: remote memory grossly intact and language grossly intact; + recent memory not intact and + attention not intact Estimated Intelligence: consistent with education level Insight: + severely impaired insight Judgement: + severely impaired judgement Vital Signs (Past 24 Hours): Last Vital Signs Temp 36.8 C 04/10/22 07:58 Pulse 66 04/10/22 07:58 Resp 16 04/10/22 07:58 BP 134/85 04/10/22 09:16 Pulse Ox 94 04/10/22 07:58 O2 Del Method 04/10/22 07:58 Review of Systems All systems reviewed & are unremarkable except as noted in HPI & below ("everything hurts, my soul does") Results & Data ([facility]) Laboratory Results low Na+ Medications Administered Enoxaparin Sodium (Enoxaparin Inj 30 Mg/0.3 Ml Syr) 30 mg SQ Q24H [facility] Stop: 05/10/22 08:59 Last Admin: 04/10/22 09:19 Dose: 30 mg Documented By: DM Folic Acid (Folic Acid 1 Mg Tab) 1 mg PO QAM [facility] Stop: 05/10/22 08:59 Last Admin: 04/10/22 09:18 Dose: 1 mg Documented By: DMH Losartan Potassium (Losartan Potassium 50 Mg Tab) 50 mg PO QAM [facility] Stop: 05/10/22 08:59 Last Admin: 04/10/22 09:18 Dose: 50 mg Documented By: SHOSHANA Miscellaneous (Remove Nicoderm Patch) 1 each N/A DAILY@0859 [facility] Stop: 05/10/22 08:58 Last Admin: 04/10/22 09:17 Dose: Not Given Documented By: SHOSHANA Pantoprazole Sodium (Pantoprazole 40 Mg Tab) 40 mg PO [facility] Stop: 05/10/22 08:59 Last Admin: 04/10/22 09:42 Dose: 40 mg Documented By: SHOSHANA Thiamine HCl (Thiamine Hcl 100 Mg Tab) [facility] Stop: 05/09/22 22:54 Last Admin: 04/10/22 09:17 Dose: 100 mg Documented By: Admin: 04/10/22 00:27 Dose: 100 mg Documented By: URI Coding Level of Care Code 47913 Inpt Consult Level 4 Diagnoses Suicidal ideation R45.851 Benzodiazepine dependence F13.20 Unspecified mood [affective] disorder F39 Paranoia (psychosis) F22 Acute hyponatremia E87.1 Time Spent (min) 45
[2022-04-10] MEDS: NICOTINE 14 MG/24 HR PATCH TD PRN ×2 (12:24→21:46)
--- NOTE | 2022-04-10 12:24 | XRay Report ---
XR chest 1V portable HISTORY: 56 years-old Female fall ?cause acute chest trauma status post fall COMPARISON: CTA chest 11/12/2021 TECHNIQUE: AP view of the chest FINDINGS: Cardiomediastinal and hilar silhouettes are within normal limits. No pneumothorax, pleural effusion, airspace consolidation or overt pulmonary edema. The patient is mildly rotated towards the left. Dege nerative changes of the shoulders and spine. Healed chronic right-sided rib fractures. Loose bodies o f the left glenohumeral joint. IMPRESSION: No acute process. ACT 112: Negative or not required by law. The above report was generated using voice recognition software. It may contain grammatical, syntax o r spelling errors. Electronically signed by: Maxime Betancourt M.D. 04/10/2022 12:22 PM
[2022-04-10] MEDS ORDERED: LORazepam 1 MG in SYRINGE 0 ML IV PRN (12:54)
--- NOTE | 2022-04-10 13:54 | Electrocardiogram Report ---
Test Reason : Blood Pressure : / mmHG Vent. Rate : 068 BPM Atrial Rate : 068 BPM P-R Int : 168 ms QRS Dur : 082 ms QT Int : 424 ms P-R-T Axes : 063 012 052 degrees QTc Int : 450 ms Poor data quality, interpretation may be adversely affected Normal sinus rhythm Normal ECG When compared with ECG of 13-NOV-2021 02:03, No significant change was found Confirmed by Daniel Morales ([id number]) on 04/10/2022 1:53:58 PM Referred By: REFERRED SELF Confirmed By:Daniel Morales
[2022-04-10] MEDS: NICOTINE POLACRILEX 2 MG GUM MT PRN (16:35)
[2022-04-10] MEDS: hydrOXYzine HCl 25 MG TAB PO PRN (16:59)
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
[2022-04-10] MEDS: traZODone HCL 100 MG TAB PO SCH (21:33)
[2022-04-10] MEDS ORDERED: Nursing to Pharmacy Communication SCH (22:00)
[2022-04-11] MEDS: NICOTINE 14 MG/24 HR PATCH TD SCH ×2 (06:26→06:30)
[2022-04-11] MEDS ORDERED: SODIUM CHLORIDE 0.65% NA SOLN 45 ML (OCEAN) ONE (06:35)
[2022-04-11] MEDS: NICOTINE POLACRILEX 2 MG GUM MT PRN (06:36)
[2022-04-11] MEDS: LOSARTAN POTASSIUM 50 MG TAB PO SCH (08:22)
[2022-04-11] MEDS: FOLIC ACID 1 MG TAB PO SCH (08:22)
[2022-04-11] MEDS: ATORVASTATIN 20 MG TAB PO SCH (08:22)
[2022-04-11] MEDS: FLUTICASONE PROPIONATE NA SPR 16 GM BTL NAE SCH ×2 (08:22→20:14)
[2022-04-11] MEDS: PANTOprazole 40 MG TAB PO SCH (08:23)
[2022-04-11] MEDS: THIAMINE HCL 100 MG TAB PO SCH (08:23)
[2022-04-11] MEDS: hydrOXYzine HCl 25 MG TAB PO PRN ×2 (10:54→17:37)
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
--- NOTE | 2022-04-11 11:41 | Discharge Summary ---
Date of Service April 11, 2022 Admission HPI Per Admitting Provider Geri is a 56-year-old female brought in by police and EMS after being found homeless/living under a bridge with concern for suicidal expression who had not eaten in several days, and fell while walking [place] [address] and hit her head but did not have a loss of consciousness or headache. Somewhat groggy and sedated following chemical control of agitation episode while in the ER, however arouses and is appropriate with conversation after. [address], pending medical clearance due to hyponatremia. Patient reports that she was kicked out of her house and has been homeless for the last few weeks. She notes that she had hoped to live with a potential boyfriend, but that this was not possible. By EMS report patient had expressed suicidal ideation, at bedside patient denies this. Denies auditory/visual morris llucinations. Endorses some fatigue and weakness, notes she has not had a regular meal in several days and has not been drinking very much either. Denies fever, chills, sweats, chest pain, chest pressure. Does endorse a history of gout and floppy feeling in her legs but no pain in her ankles currently. She reports she has not taken any medications in at least a week, notes that these were in her house which she has been kicked out of/evicted from. Does not give a reliable medical history at bedside, still somewhat somnolent following Haldol/lorazepam in ER as noted. Patient is aware that she has had a [address], but is being admitted to medical floor for treatment of hyponatremia but that U has been consulted. No questions or concerns, patient is agreeable to hospital admission at this time. Medical History: Reviewed Medications: Reviewed Surgical History: Reviewed Allergies: Reviewed Social History: Denies recent alcohol use, alcohol negative on admission. Hist ory of tobacco use. Denies substance use/marijuana use recently, endorses past marijuana use. Code Status: Full Discharge Data Allergies Allergy/AdvReac Type Severity Reaction Status Date / Time capsaicin Allergy Mild DIARRHEA Unverified 02/08/22 09:56 diclofenac Allergy Mild DIARRHEA Unverified 02/08/22 09:56 ciprofloxacin Allergy Unknown ITCHING Verified 02/08/22 09:56 metronidazole Allergy Unknown ITCHING Verified 02/08/22 09:56 Gabapentin CAPS AdvReac Intermediate edema Uncoded 02/08/22 09:56 Consultations 04/09/22 16:24 ED Decision to Admit Stat 04/10/22 09:26 Consult Psychiatry Routine Ordered Studies 04/09/22 14:49 CT head/brain wo con Stat Discharge Plan Discharge Items Reason For Visit: HYPONATREMIA,302 FOR SI Condition on Discharge: Fair Follow-up/Referrals: Maegan Brooks, [Primary Care Provider] - Medications and DC Order Prescriptions: No Action cholecalciferol (vitamin D3) 50 mcg (2,000 unit) capsule 2,000 unit PO DAILY Qty: 90 3RF fluocinonide 0.05 % cream 1 applic TOP BID Qty: 60 4RF Rx Instructions: APPLY SPARINGLY TO AFFECTED AREA(S) TWICE DAILY atorvastatin 20 mg tablet 20 mg PO DAILY Qty: 90 2RF docusate sodium 100 mg capsule 100 mg PO BID Qty: 60 5RF fluticasone propionate [Flonase Allergy Relief] 50 mcg/actuation spray,suspension 2 spray INTNAS DAILY Qty: 15.8 3RF Rx Instructions: administer into each nostril losartan 50 mg tablet 50 mg PO BID Qty: 180 3RF pantoprazole 40 mg tablet,delayed release (DR/EC) 40 mg PO DAILY Qty: 90 1RF triamcinolone acetonide 0.1 % cream 1 applic TOP BID Qty: 80 1RF furosemide [Lasix] 20 mg tablet 20 mg PO DAILY PRN (Reason: edema) Qty: 30 0RF Soothe XP 1-4.5 % drops ophthalmic (eye) PRN trazodone 100 mg tablet 100 mg PO DAILY alprazolam 1 mg tablet 1 mg PO QID PRN temazepam 30 mg capsule 30 mg PO .[facility] Admission Data Admit Date/Time: 04/09/22 17:55 Attending Provider: Oleg Arnold Admit Provider: Jose Miguel Armijo Primary Care Provider: Maegan Brooks Other Providers: Jose Miguel Armijo ; Heidi Parker ; Karen Buck ; Susan Little Coding
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
[2022-04-11] MEDS ORDERED: OLANZAPINE 2.5 MG TAB PO PRN (17:25)
[2022-04-11] MEDS: traZODone HCL 100 MG TAB PO SCH (20:14)
[2022-04-11] MEDS ORDERED: OLANZapine 5 MG TABLET PO SCH (21:00)
[2022-04-12] MEDS: hydrOXYzine HCl 25 MG TAB PO PRN ×2 (02:16→09:56)
[2022-04-12 07:11] LABS: Creatinine Clr Calc Pharmacy 103.4 ml/min; Est GFR (African American) 116.4 ml/min; Est GFR (Non-African American) 100.5 ml/min
[2022-04-12] MEDS: ATORVASTATIN 20 MG TAB PO SCH (07:47)
[2022-04-12] MEDS: FOLIC ACID 1 MG TAB PO SCH (07:48)
[2022-04-12] MEDS: THIAMINE HCL 100 MG TAB PO SCH (07:49)
[2022-04-12] MEDS: PANTOprazole 40 MG TAB PO SCH (07:49)
[2022-04-12] MEDS: LOSARTAN POTASSIUM 50 MG TAB PO SCH (07:49)
[2022-04-12] MEDS: FLUTICASONE PROPIONATE NA SPR 16 GM BTL NAE SCH (07:50)
[2022-04-12] MEDS: NICOTINE 14 MG/24 HR PATCH TD SCH (07:52)
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
[2022-04-12] MEDS ORDERED: OLANZAPINE 2.5 MG TAB PO SCH (12:00)
--- NOTE | 2022-04-12 13:44 | Discharge Summary ---
Date of Service April 12, 2022 Principal Diagnosis Appear to do due to suicidal ideation with major depressive disorder Hypertension Hyponatremia resolved Discharge Exam The patient appeared stable Vital signs as documented. Lungs are clear to auscultation and appear unlabored Cardiac exam, Rhythm is regular.. No murmurs, rubs or gallops. Neurologic exam is alert and oriented, she is pacing about the room she has pressured speech and appears agitated her thoughts are tangential and did not make direct sense she says she does not want to miss her pain management appointment because she supposed to get 120 tablets of oxycodone Discharge Data Allergies Allergy/AdvReac Type Severity Reaction Status Date / Time capsaicin Allergy Mild DIARRHEA Unverified 02/08/22 09:56 diclofenac Allergy Mild DIARRHEA Unverified 02/08/22 09:56 ciprofloxacin Allergy Unknown ITCHING Verified 02/08/22 09:56 metronidazole Allergy Unknown ITCHING Verified 02/08/22 09:56 Gabapentin CAPS AdvReac Intermediate edema Uncoded 02/08/22 09:56 Consultations 04/09/22 16:24 ED Decision to Admit Stat 04/10/22 09:26 Consult Psychiatry Routine Ordered Studies 04/09/22 14:49 CT head/brain wo con Stat Hospital Course (1) Hyponatremia: Geri is a 56-year-old female brought in by police and EMS after being found homeless/living [place] bridge with concern for suicidal expression who had not eaten in several days, and fell while walking and hit her head but did not have a loss of consciousness or headache. Suicidal ideation By report patient expressed this prior to admission Is currently on 302 Appreciate psychiatric consult - discussed care with Dr Parker pt will be discharged to behavioral health unit on 04/12/22 Hyponatremia Resolved History of poor nutritional intake, homeless, history of alcohol use No recent alcohol use Recommend multiple vitamin with iron Benzodiazepine dependence Did not exhibit any signs of withdrawal, medically stable for discharge at this time. Hyperlipidemia Atorvastatin 20mg PO daily can be resumed upon disposition from the behavioral health unit Hypertension Continue losartan 50 mg CODE STATUS: Full code (2) Suicidal ideation: (3) Dyslipidemia: (4) Benzodiazepine dependence: (5) Benign essential hypertension: (6) Alcoholism: Total Time Total Time Spent Total Time Spent (In Minutes): It required greater than 30 minutes to prepare this patient for discharge Discharge Plan Discharge Items Patient Disposition: Transfer Behavioral Health Fac Reason For Visit: HYPONATREMIA,302 FOR SI Discharge Diagnosis: 302 for suicidal ideation hyponatremia resolved hypertension Condition on Discharge: Fair Activity: Per Instructions section Activity Comment: as per restrictions of [facility] Non-emergency contact: Specialist Call non-emergency contact if: your symptoms worsen Follow-up/Referrals: Maegan Brooks DO [Primary Care Provider] - Diet: Regular Addtl Attending Provider Instructions: please continue to watch to volume of plain water intake, trying to keep it low, and if thirsty to use alternatives such as power aide and gator aide, juices and other drinks consider checking sodium in 3 days after transfer just to assure it remains close to normal Please continue multiple vitamin with iron once a day Please consider using Protonix once a day Losartan should be continued for blood pressure control, at the time of discharge as the patient appears to be considering compliance and health maintenance restarting of her atorvastatin could be considered If you have any questions during her stay in the behavioral team and please do not hesitate to contact the hospital service for any medical advice Pending Studies at Discharge: No Stand-Alone Forms: My [facility] Medications and DC Order Prescriptions: New olanzapine 2.5 mg Tablet 2.5 mg PO QAM Qty: 30 0RF olanzapine 5 mg Tablet 5 mg PO HS Qty: 30 0RF trazodone 100 mg Tablet 100 mg PO HS Qty: 30 0RF pantoprazole 40 mg Tablet,Delayed Release (Dr/Ec) 40 mg PO QAM Qty: 30 0RF fluticasone propionate 50 mcg/actuation [place],Suspension 1 spray HOMER BID Qty: 1 0RF Multiple Vitamin-Minerals Tablet 1 tab PO DAILY Qty: 30 0RF Continued losartan 50 mg tablet 50 mg PO BID Qty: 180 3RF Discontinued cholecalciferol (vitamin D3) 50 mcg (2,000 unit) capsule 2,000 unit PO DAILY Qty: 90 3RF fluocinonide 0.05 % cream 1 applic TOP BID Qty: 60 4RF Rx Instructions: APPLY SPARINGLY TO AFFECTED AREA(S) TWICE DAILY atorvastatin 20 mg tablet 20 mg PO DAILY Qty: 90 2RF docusate sodium 100 mg capsule 100 mg PO BID Qty: 60 5RF fluticasone propionate [Flonase Allergy Relief] 50 mcg/actuation spray,suspension 2 spray INTNAS DAILY Qty: 15.8 3RF Rx Instructions: administer into each nostril pantoprazole 40 mg tablet,delayed release (DR/EC) 40 mg PO DAILY Qty: 90 1RF triamcinolone acetonide 0.1 % cream 1 applic TOP BID Qty: 80 1RF furosemide [Lasix] 20 mg tablet 20 mg PO DAILY PRN (Reason: edema) Qty: 30 0RF Soothe XP 1-4.5 % drops ophthalmic (eye) PRN trazodone 100 mg tablet 100 mg PO DAILY alprazolam 1 mg tablet 1 mg PO QID PRN temazepam 30 mg capsule 30 mg PO .qhs Discharge Orders: Discharge Order (Routine); Ordered 04/12/22 Ordered By: Jonny Anguiano Admission Data Admit Date/Time: 04/09/22 17:55 Attending Provider: Jonny Anguiano Admit Provider: Jose Miguel Armijo Primary Care Provider: Maegan Brooks Other Providers: Jose Miguel Armijo ; Heidi Parker ; Karen Buck ; Susan Little Coding Level of Care Code D/C DAY MANAGEMENT >30 MINS Diagnoses Hyponatremia E87.1 Suicidal ideation R45.851 Dyslipidemia E78.5 Benzodiazepine dependence F13.20 Benign essential hypertension I10 Alcoholism F10.20
== END 2022-04-12 14:11 | DRG 641 ==
LOC: ED 14:35 → 3E 17:55 → SUATTDRO 17:55 → 3E 22:35
DX: E87.1 Hypo-osmolality and hyponatremia; F32.9 Major depressive disorder, single episode, unspecified; I10 Essential (primary) hypertension; Z88.8 Allergy status to other drugs, medicaments and biological substances; E78.5 Hyperlipidemia, unspecified; R45.1 Restlessness and agitation; R45.851 Suicidal ideations; F17.210 Nicotine dependence, cigarettes, uncomplicated; Z59.02 Unsheltered homelessness; F19.20 Other psychoactive substance dependence, uncomplicated; F10.20 Alcohol dependence, uncomplicated

== ENCOUNTER 2022-04-12 12:33 | Inpatient (IN) ==
[2022-04-12] MEDS ORDERED: BISMUTH SUBSALICYLATE LIQD 236 ML PO PRN (12:39)
[2022-04-12] MEDS ORDERED: ALUMINUM/MAGNESIUM SUSP 30 ML UDC PO PRN (12:39)
[2022-04-12] MEDS ORDERED: MAGNESIUM HYDROXIDE SUSP 30 ML UDC PO PRN (12:39)
[2022-04-12] MEDS ORDERED: OLANZapine ZYDIS 5 MG ORALLY DIS. TAB PO PRN (15:26)
[2022-04-12] MEDS ORDERED: OLANZapine 10 MG/2.1 ML SDV IM PRN (15:27)
[2022-04-12] MEDS: traZODone HCL 100 MG TAB PO SCH (20:44)
[2022-04-12] MEDS: FLUTICASONE PROPIONATE NA SPR 16 GM BTL NAE SCH (20:44)
[2022-04-12] MEDS: OLANZapine 10 MG TAB PO SCH (20:44)
[2022-04-12] MEDS: LOSARTAN POTASSIUM 50 MG TAB PO SCH (20:44)
[2022-04-12] MEDS: hydrOXYzine HCl 25 MG TAB PO PRN (20:46)
[2022-04-12] MEDS ORDERED: OLANZapine 5 MG TABLET PO SCH (22:00)
[2022-04-13] MEDS: hydrOXYzine HCl 25 MG TAB PO PRN (02:29)
[2022-04-13] MEDS: LOSARTAN POTASSIUM 50 MG TAB PO SCH ×2 (07:28→20:29)
[2022-04-13] MEDS: NICOTINE 21 MG/24 HR TDSY TD SCH (07:29)
[2022-04-13] MEDS: CEROVITE ADV FORMULA TAB PO SCH (07:29)
[2022-04-13] MEDS: PANTOprazole 40 MG TAB PO SCH (07:29)
[2022-04-13] MEDS: FLUTICASONE PROPIONATE NA SPR 16 GM BTL NAE SCH (07:30)
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
[2022-04-13 08:59] LABS: Chol HDL Ratio 2.1 (0-5)
[2022-04-13] MEDS ORDERED: OLANZAPINE 2.5 MG TAB PO SCH (09:00)
[2022-04-13] MEDS ORDERED: ATORVASTATIN 20 MG TAB PO SCH (09:00)
[2022-04-13] MEDS: amLODIPine BESYLATE 5 MG TAB PO SCH (10:34)
[2022-04-13] MEDS: POTASSIUM CHLORIDE CRTAB 20 MEQ TABCR PO SCH ×2 (10:35→20:30)
[2022-04-13] MEDS ORDERED: POLYETHYLENE (MIRALAX) 17 GM PACK PO PRN (10:53)
[2022-04-13] MEDS: DOCUSATE SODIUM/SENNA 50/8.6MG TAB PO SCH (11:32)
[2022-04-13] MEDS: NICOTINE POLACRILEX 2 MG GUM MT PRN (14:53)
[2022-04-13] MEDS: SODIUM CHLORIDE 0.65% NA SOLN 45 ML (OCEAN) PRN (16:56)
[2022-04-13] MEDS ORDERED: ARTIFICIAL TEARS OP PRN (17:19)
[2022-04-13] MEDS: traZODone HCL 100 MG TAB PO SCH (20:30)
[2022-04-13] MEDS: OLANZapine 10 MG TAB PO SCH (20:30)
[2022-04-14] MEDS: ACETAMINOPHEN 325 MG TAB PO PRN (05:35)
[2022-04-14] MEDS: FLUTICASONE PROPIONATE NA SPR 16 GM BTL SCH (06:43)
[2022-04-14] MEDS: hydrOXYzine HCl 25 MG TAB PO PRN ×3 (07:02→22:24)
[2022-04-14] MEDS: NICOTINE 21 MG/24 HR TDSY TD SCH (08:21)
[2022-04-14] MEDS: LOSARTAN POTASSIUM 50 MG TAB PO SCH ×2 (08:22→20:46)
[2022-04-14] MEDS: OLANZapine 5 MG TABLET PO SCH (08:22)
[2022-04-14] MEDS: CEROVITE ADV FORMULA TAB PO SCH (08:22)
[2022-04-14] MEDS: PANTOprazole 40 MG TAB PO SCH (08:22)
[2022-04-14] MEDS: ATORVASTATIN 20 MG TAB PO SCH (08:22)
[2022-04-14] MEDS: DOCUSATE SODIUM/SENNA 50/8.6MG TAB PO SCH (08:22)
[2022-04-14] MEDS: amLODIPine BESYLATE 5 MG TAB PO SCH (08:22)
[2022-04-14] MEDS: POTASSIUM CHLORIDE CRTAB 20 MEQ TABCR PO SCH ×2 (08:23→20:46)
[2022-04-14] MEDS ORDERED: PANTOprazole 40 MG TAB PO SCH (09:00)
--- NOTE | 2022-04-14 09:13 | Psychiatric Progress Note ---
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 Substance-withdrawal presentation possible but UDS negative on admission to medical service and no known recent use. The patient is deemed unstable and requires psychiatric hospitalization for diagnostic clarification, safety and stabilization, medication management and development of further coping skills. MNPR due to acute rey with intrusiveness/lack of boundaries with peers, paranoia, bizarre behaviors 04/14/22: Ongoing acute rey and no safe options for housing or ways to help access basic needs like food. Filed 303 commitment paperwork, hearing tomorrow. Increase olanzapine to further target poor sleep and rey. (1) Moderate bipolar I disorder with rey as current episode: (2) Anxiety: Plan 04/14/22: Increase zyprexa to 5mg qAM & 15mg qhs. 04/13/22: The patient was admitted to the [facility] ([facility] mental health unit) on q15 min checks (behavioral with suicide precautions) for safety. The patient will participate in group, recreational, and milieu therapies and will be offered additional individual and family sessions as clinically appropriate. -Olanzapine 5mg qAM & 10 mg qhs -Trazodone 100mg qhs -Has withdrawn from Xanax and Restoril so will avoid re-introducing any new benzodiazepines, especially as pain clinic provider recommended she be tapered off these medications to allow for more options for pain management therapy -Nicotine replacement Inventory Assets Strengths: some family supports, resilient, good rapport with outpt psychiatrist Needs: safety and stabilization, medication adjustment, further outpatient supports, housing Suicide Risk Level Suicide Risk Level: Moderate (q15 min suicide checks) (has been denying SI but presented after making statements of SI and significant mood lability and paranoia, able to safety contract to alert staff if she develops SI) Risk Factors Assessment : Yes Do You Have Access To A Gun?: No Mental Health Diagnoses: Yes Protective Factors Assessment Supportive Family: Yes Good Rapport with Provider: Yes Interval History Identifying Information NIURKA MO is a 56-year-old F who is currently homeless, has a history of BPAD, depression, panic disorder, dependent personality disorder and insomnia, and was admitted on 04/12/22 12:39 on a 302 involuntary commitment for acute rey with bizarre behaviors, lack of po intake and statements of SI. Chief Complaint "Look I found some ice, like that song ice ice baby!". Review of Systems Sleep Information Total Hours of Sleep: 5 Sleep Comments: pt given vistaril per rn. pt on q-15 minute checks Meal Information Percent Meal Consumed - Breakfast: 100 Percent Meal Consumed - Lunch: 100 Percent Meal Consumed - Dinner: 100 Subjective Subjective Patient was seen & assessed and interval progress reviewed with treatment team nursing and social work. Excused from group therapy but less intrusive with peers last night. Very disorganized, couldn't complete her intake for outpatient case management due to scattered thought process. Remains fixated on desire to have her son pick her up but names a variety of other people she thinks she could live with including someone she thinks is a boyfriend. Reviewed with social work present that this individual stated he is not her boyfriend when talking to SW on the phone and that he reported he didn't know her well. Denies medication side effects, likes the olanzapine. Disagrees that she has acute rey. Physical Exam Psychiatric Orientation: alert and oriented x 3 Apperance: appropriately dressed and + disheveled Eye Contact: good eye contact (intense) Motor Behavior: no abnormal motor movements Speech: + loud speech; + abnormal rate/rhythm/volume of speech (fast and difficult to interrupt) Affect: + tearful affect and + labile affect Mood: + anxious mood and + irritable mood; no depressed mood Thought Process: + tangential thought process, + flight of ideas and + looseness of associations Thought Content: + preoccupation and + delusions Suicidal Thoughts: denies suicidal thoughts Homicidal Thoughts: denies homicidal thoughts Hallucinations: no auditory hallucinations and no visual hallucinations Cognition: remote memory grossly intact and language grossly intact; + recent memory not intact and + attention not intact Estimated Intelligence: consistent with education level Insight: + limited insight Judgement: + limited judgement Vital Signs (Past 24 Hours) Last Vital Signs Temp 37.2 C 04/14/22 06:48 Pulse 96 H 04/14/22 06:51 Resp 18 04/14/22 06:48 BP 138/102 H 04/14/22 06:51 Pulse Ox 100 04/12/22 19:48 O2 Del Method 04/12/22 19:48 Results & Data ([facility]) Current Inpatient Medications Current Inpatient Medications: Current Inpatient Medications Acetaminophen (Acetaminophen 325 Mg Tab) 650 mg PO Q4H PRN PRN Reason: Headache or Minor Fever Stop: 05/12/22 12:38 Last Admin: 04/14/22 05:35 Dose: 650 mg Al Hydrox/Mg Hydrox/Simethicone (Aluminum/Magnesium Susp 30 Ml Udc) 30 ml PO Q4H PRN PRN Reason: GI Upset Stop: 05/12/22 12:38 Amlodipine Besylate (Amlodipine Besylate 5 Mg Tab) 5 mg PO DAILY MARCOS Stop: 05/13/22 10:14 Last Admin: 04/14/22 08:22 Dose: 5 mg Artificial Tears (Artificial Tears) 1 drops OP PRN PRN PRN Reason: Dryness Stop: 05/13/22 17:18 Last Admin: 04/13/22 17:32 Dose: 1 drops Atorvastatin Calcium (Atorvastatin 20 Mg Tab) 20 mg PO DAILY MARCOS Stop: 05/14/22 08:59 Last Admin: 04/14/22 08:22 Dose: 20 mg Bismuth Subsalicylate (Bismuth Subsalicylate Liqd 236 Ml) 15 ml PO PRN PRN PRN Reason: Loose Stool Stop: 05/12/22 12:38 Fluticasone Propionate (Fluticasone Propionate Na Spr 16 Gm Btl) 2 sprays NA DAILY MARCOS Stop: 05/14/22 08:59 Last Admin: 04/14/22 06:43 Dose: 2 sprays Hydroxyzine HCl (Hydroxyzine Hcl 25 Mg Tab) 50 mg PO HSZ PRN PRN Reason: Insomnia Stop: 05/12/22 12:38 Last Admin: 04/13/22 02:29 Dose: 50 mg Hydroxyzine HCl (Hydroxyzine Hcl 25 Mg Tab) 25 mg PO Q4H PRN PRN Reason: Anxiety Stop: 05/12/22 12:38 Last Admin: 04/14/22 07:02 Dose: 25 mg Losartan Potassium (Losartan Potassium 50 Mg Tab) 50 mg PO BID MARCOS Stop: 05/12/22 20:59 Last Admin: 04/14/22 08:22 Dose: 50 mg Magnesium Hydroxide (Magnesium Hydroxide Susp 30 Ml Udc) 30 ml PO DAILY PRN PRN Reason: Constipation Stop: 05/12/22 12:38 Miscellaneous (Remove Nicoderm Patch) 1 each N/A DAILY@0859 [facility] Stop: 05/13/22 08:58 Last Admin: 04/14/22 08:29 Dose: 1 each Multivitamins/Minerals (Cerovite Adv Formula Tab) 1 tab PO DAILY MARCOS Stop: 05/13/22 08:59 Last Admin: 04/14/22 08:22 Dose: 1 tab Nicotine (Nicotine 21 Mg/24 Hr Tdsy) 21 mg TD QAM MARCOS Stop: 05/13/22 08:59 Last Admin: 04/14/22 08:21 Dose: 21 mg Nicotine Polacrilex (Nicotine Polacrilex 2 Mg Gum) 1 piece MT PRN PRN PRN Reason: Nicotine Withdrawal Stop: 05/12/22 12:38 Last Admin: 04/13/22 14:53 Dose: 1 piece Olanzapine (Olanzapine 10 Mg Tab) 10 mg PO HS MARCOS Stop: 05/12/22 21:59 Last Admin: 04/13/22 20:30 Dose: 10 mg Olanzapine (Olanzapine Zydis 5 Mg Orally Dis. Tab) 5 mg PO BID PRN PRN Reason: Anxiety/Agitation Stop: 05/12/22 20:59 Last Admin: 04/13/22 09:46 Dose: 5 mg Olanzapine (Olanzapine 10 Mg/2.1 Ml Sdv) 10 mg IM DAILY PRN PRN Reason: Agitation Stop: 05/13/22 08:59 Olanzapine (Olanzapine 5 Mg Tablet) 5 mg PO QAM [facility] Stop: 05/14/22 08:59 Last Admin: 04/14/22 08:22 Dose: 5 mg Pantoprazole Sodium (Pantoprazole 40 Mg Tab) 40 mg PO QAM MARCOS Stop: 05/13/22 08:59 Last Admin: 04/14/22 08:22 Dose: 40 mg Pantoprazole Sodium (Pantoprazole 40 Mg Tab) 40 mg PO DAILY MARCOS Stop: 05/14/22 08:59 Last Admin: 04/14/22 08:29 Dose: Not Given Polyethylene Glycol (Polyethylene (Miralax) 17 Gm Pack) 17 gm PO DAILY PRN PRN Reason: Constipation Stop: 05/13/22 10:52 Potassium Chloride (Potassium Chloride Crtab 20 Meq Tabcr) 20 meq PO QPM MARCOS Stop: 05/13/22 20:59 Last Admin: 04/13/22 20:30 Dose: 20 meq Potassium Chloride (Potassium Chloride Crtab 20 Meq Tabcr) 40 meq PO QAM MARCOS Stop: 05/13/22 10:14 Last Admin: 04/14/22 08:23 Dose: 40 meq Senna/Docusate Sodium (Docusate Sodium/Senna 50/8.6mg Tab) 1 tab PO QAM MARCOS Stop: 05/13/22 10:59 Last Admin: 04/14/22 08:22 Dose: 1 tab Sodium Chloride (Sodium Chloride 0.65% Na Soln 45 Ml ([place])) 1 - 2 sprays NA PRN PRN PRN Reason: Nasal Dryness/Congestion Stop: 05/12/22 12:38 Last Admin: 04/13/22 16:56 Dose: 2 sprays Trazodone HCl (Trazodone Hcl 100 Mg Tab) 100 mg PO HS MARCOS Stop: 05/12/22 21:59 Last Admin: 04/13/22 20:30 Dose: 100 mg Mental Health & Subst Abuse Tx Psychiatrist Name of Psychiatrist: Sammie Whittington Therapist Name of Therapist: None Sprayer Leather Name of Sprayer Leather: None Post Discharge Appointments Primary Care Physician Name Of Family Doctor: Dr. Maegan [facility] Name of Pain Clinic: [facility] Nuria Garcia Phone Number for Pain Clinic: [phone] Date of Appointment with Pain Clinic: 05/02/22 Time of Appointment with Pain Clinic: 0815 Pain Clinic Appointment Comment: appt on 04/21 at 0815 for narcotic screening
[2022-04-14] MEDS: NICOTINE POLACRILEX 2 MG GUM MT PRN ×2 (18:32→20:19)
[2022-04-14] MEDS: traZODone HCL 100 MG TAB PO SCH (20:46)
[2022-04-14] MEDS: SODIUM CHLORIDE 0.65% NA SOLN 45 ML (OCEAN) PRN (21:24)
[2022-04-14] MEDS ORDERED: OLANZapine 5 MG TABLET PO SCH (22:00)
[2022-04-15] MEDS: ACETAMINOPHEN 325 MG TAB PO PRN (03:17)
[2022-04-15] MEDS: POTASSIUM CHLORIDE CRTAB 20 MEQ TABCR PO SCH (08:13)
[2022-04-15] MEDS: PANTOprazole 40 MG TAB PO SCH (08:13)
[2022-04-15] MEDS: NICOTINE 21 MG/24 HR TDSY TD SCH (08:13)
[2022-04-15] MEDS: CEROVITE ADV FORMULA TAB PO SCH (08:13)
[2022-04-15] MEDS: DOCUSATE SODIUM/SENNA 50/8.6MG TAB PO SCH (08:14)
[2022-04-15] MEDS: ATORVASTATIN 20 MG TAB PO SCH (08:14)
[2022-04-15] MEDS: LOSARTAN POTASSIUM 50 MG TAB PO SCH (08:14)
[2022-04-15] MEDS: amLODIPine BESYLATE 5 MG TAB PO SCH (08:14)
[2022-04-15] MEDS: OLANZapine 5 MG TABLET PO SCH (08:14)
[2022-04-15] MEDS: FLUTICASONE PROPIONATE NA SPR 16 GM BTL SCH (08:14)
[2022-04-15] MEDS: hydrOXYzine HCl 25 MG TAB PO PRN (09:48)
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
== END 2022-04-15 11:50 | disposition home or self-care (01) | DRG 885 ==
LOC: 3S 12:39